=== PATIENT | female | born 1970 | race Caucasian/White ===

== ENCOUNTER 2018-04-05 00:04 | Inpatient (IN) | END 2018-06-09 20:35 | disposition home health service (06) | DRG 853 ==

== ENCOUNTER 2018-09-10 15:44 | Inpatient (IN) | payer OTHER ==
[~2018-09-10] VITALS: Ht 152.4 cm; Wt 59.1 kg
[~2018-09-10 15:44] MED LIST: ATOR20TA38 PO; FER325 PO; GLIP5TAB13 PO; METF500T24 PO; METO-448 PO
[2018-09-10] MEDS ORDERED: ACETAMINOPHEN 325 MG TAB PO STA (16:24)
[2018-09-10] MEDS ORDERED: VANCOMYCIN 1 GM (PMX) 250 ML IVPB STA (16:24)
[2018-09-10] MEDS ORDERED: SODIUM CHLORIDE 0.9% 1L BAG IV* STA (16:24)
[2018-09-10] MEDS ORDERED: PIPER-TAZO 3.375 GM IV (PMX) 100 ML IVPB STA (16:24)
--- NOTE | 2018-09-10 16:24 | ERD ---
ER Documentation Chief Complaint Chief Complaint seny by wound dept for admission for diabetic l. foot ulcer HPI 48-year-old female history of diabetes mellitus, Charcot foot, diabetic neuropathy and left foot ulceration and infection referred to the ED from the amputation prevention clinic for evaluation and admission. ROS All systems reviewed and are negative except as per history of present illness. Medications Home Meds Reported Medications Cholecalciferol (Vitamin D3) 5,000 Unit Tablet, 5000 UNIT PO DAILY, TAB 09/10/18 Ascorbic Acid* (Vitamin C*) 500 Mg Capsule.sa, 500 MG PO DAILY, CAP 09/10/18 [place]-3 Fatty Acids/Fish Oil (Fish Oil 1,000 mg Capsule) 1 Each Capsule, 1 EACH PO DAILY, CAP 09/10/18 Atorvastatin Calcium* (Atorvastatin Calcium*) 20 Mg Tablet, 20 MG PO QHS, #30 TAB 08/25/18 Metoprolol Tartrate* (Lopressor*) 25 Mg Tab, 25 MG PO BID, #60 TAB 08/25/18 Metformin Hcl* (Metformin Hcl*) 500 Mg Tablet, 500 MG PO WITH BREAKFAST DINNE, #60 TAB 08/25/18 Glipizide* (Glipizide*) 5 Mg Tablet, 5 MG PO AC BREAKFAST, TAB 08/25/18 Ferrous Sulfate* (Ferrous Sulfate*) 325 Mg Tabec, 325 MG PO DAILY, TAB 08/25/18 Allergies Allergies: Coded Allergies: No Known Allergy (Unverified , 09/10/18) PMhx/Soc Reviewed in chart. As per HPI. History of Surgery: Yes (LEFT FOOT ) Anesthesia Reaction: No Hx Neurological Disorder: No Hx Respiratory Disorders: No Hx Cardiac Disorders: No Hx Psychiatric Problems: No Hx Miscellaneous Medical Probl: Yes (DM II ) Hx Alcohol Use: No Hx Substance Use: No Hx Tobacco Use: No FmHx No family history relevant to presenting complaint Physical Exam Vitals Temperature: 100.7. Pulse: 131. Respirations: 20. Blood pressure: 198/135. O2 saturation 100%. Physical Exam Const: Moderate distress. Head: Atraumatic Eyes: Normal Conjunctiva ENT: Normal External Ears, Nose and Mouth. Neck: Full range of motion. No meningismus. Resp: Clear to auscultation bilaterally Cardio: Regular rate and rhythm, no murmurs Abd: Soft, non tender, non distended. Normal bowel sounds Skin: No petechiae or rashes Back: No midline or flank tenderness Ext: Left foot: Charcot deformity. Tender. Extensive ulcerations and tissue loss with subcutaneous crepitus. Neur: Awake and alert Psych: Normal Mood and Affect Result Diagram: 09/15/18 0549 09/15/18 0549 Results 24 hrs Laboratory Tests Test 09/10/18 15:45 09/10/18 16:10 09/10/18 16:20 09/10/18 18:07 Urine Color YELLOW Urine Clarity CLEAR Urine pH 6.0 Urine Specific 1.012 [place] Urine Ketones NEGATIVE mg/dL Urine Nitrite NEGATIVE mg/dL Urine Bilirubin NEGATIVE mg/dL Urine NEGATIVE mg/dL Urobilinogen Urine Leukocyte NEGATIVE Vero/ul Esterase Urine Microscopic 15 /HPF RBC Urine Microscopic 12 /HPF WBC Urine Squamous FEW /HPF Epithelial Cells Urine Hemoglobin 2+ mg/dL Urine Glucose NEGATIVE mg/dL Urine Total 2+ mg/dl Protein POC Venous 2.1 mmol/L 0.9 mmol/L Lactate White Blood Count 11.9 10^3/ul Red Blood Count 2.84 10^6/ul Hemoglobin 8.4 g/dl Hematocrit 24.8 % Mean Corpuscular 87.3 fl Volume Mean Corpuscular 29.6 pg Hemoglobin Mean Corpuscular 33.9 g/dl Hemoglobin Concen t Red Cell 13.0 % Distribution Width Platelet Count 493 10^3/UL Mean Platelet 9.3 fl Volume Immature 0.600 % Granulocytes % Neutrophils % 77.8 % Lymphocytes % 14.1 % Monocytes % 7.0 % Eosinophils % 0.2 % Basophils % 0.3 % Nucleated Red 0.0 /100WBC Blood Cells % Immature 0.070 10^3/ul Granulocytes # Neutrophils # 9.2 10^3/ul Lymphocytes # 1.7 10^3/ul Monocytes # 0.8 10^3/ul Eosinophils # 0.0 10^3/ul Basophils # 0.0 10^3/ul Nucleated Red 0.0 10^3/ul Blood Cells # Prothrombin Time 14.0 Sec Prothrombin Time 1.1 Ratio INR International 1.07 Normalized Ratio Activated 50.7 Sec Partial Thrombopl ast Time Sodium Level 131 mmol/L Potassium Level 5.1 mmol/L Chloride Level 95 mmol/L Carbon Dioxide 22 mmol/L Level Anion Gap 14 Blood Urea 23 mg/dl Nitrogen Creatinine 0.92 mg/dl Est Glomerular > 60 mL/min Filtrat Rate mL/min Glucose Level 165 mg/dl Calcium Level 9.6 mg/dl Total Bilirubin 0.1 mg/dl Direct Bilirubin 0.00 mg/dl Indirect 0.1 mg/dl Bilirubin Aspartate Amino 23 IU/L Transf (AST/SGOT) Alanine 20 IU/L Aminotransferase (ALT/SGPT) Alkaline 603 IU/L Phosphatase Troponin I 0.045 ng/ml Total Protein 7.8 g/dl Albumin 3.4 g/dl Globulin 4.40 g/dl Albumin/Globulin 0.77 Ratio Current Medications Medications Dose Sig/Panfilo Start Time Status Last (Trade) Ordered Route PRN Stop Time Admin Dose Reason Admin Sodium 1,770 ml BOLUS OVER 2 09/10/18 DC 09/10/18 Chloride HOURS STAT 16:24 16:43 (NS) IV* 09/10/18 16:27 650 mg ONCE STAT 09/10/18 DC 09/10/18 Acetaminophen PO 16:24 16:43 (Tylenol 09/10/18 16:27 Tab) Vancomycin 250 ml @ ONCE STAT 09/10/18 DC 09/10/18 HCl 125 mls/hr IVPB 16:24 17:15 09/10/18 18:23 Piperacillin 100 ml @ ONCE STAT 09/10/18 DC 09/10/18 Sod/ 200 mls/hr IVPB 16:24 16:43 Tazobactam 09/10/18 16:53 Sod Procedures/MDM DOCUMENTS REVIEWED: ED nurse, prior ED, prior records LAB INTERPRETATION: CBC, leukocytosis of 11.9. Anemia with H/H8 0.4/24.8 mildly decreased from 9.7/27.9 on 08/25/2017. Chemistry: Mild hyponatremia. Elevated BUN with normal creatinine and borderline hyperglycemia. Liver function tests: Elevated alk phosphatase but no transaminitis or hyperbilirubinemia.. EKG: Time: 16:22. Sinus tachycardia. Ventricular rate 132. Normal [place] and QRS. No acute ST segment elevation or depression. No ectopy. My Interpretation IMAGING: PROCEDURE: XR foot CLINICAL INDICATION: Pain, swelling, possible osteomyelitis in the lateral foot TECHNIQUE: AP, oblique and lateral views of the left foot COMPARISON: MR 04/05/2018; FOOT 04/04/2018 FINDINGS: Marked osteopenia. Large soft tissue defect in the medial plantar midfoot extending distally to the level of the second MTP joint. Well defined osseous defect in the medial base of the first metatarsal as well as medial cuneiform. There is cortical indistinctness of the medial margin of the medial cuneiform. Indistinctness of the base of the second metatarsal at the second tarsometatarsal joint. A dditionally there is widening of the second MTP cartilage space with irregularity of the lateral base of the proximal phalanx, as well as widening of the second PIP joint with irregularity of the head of the proximal phalanx. There is narrowing of the base of the fourth metatarsal. Marked soft tissue swelling in the second digit. Vascular calcifications. Calcaneal spur at the origin of the plantar fascia. Soft tissue swelling in the forefoot. IMPRESSION: 1. Large plantar medial midfoot soft tissue defect with gas extending to the level of the second MTP joint. 2. Well-defined defect in the medial base of the first metatarsal and medial cuneiform likely postsurgical. Medial base of the first metatarsal margin appears smooth. Cortical indistinctness of the medial margin of the medial c uneiform. Correlate for date of surgery. Findings are concerning for osteomyelitis. 3. Interval widening of the second MTP joint space with irregularity of the lateral base of the second proximal phalanx, as well as widening of the second PIP joint space with irregularity of the head of the second proximal phalanx likely representing joint effusions, suspicious for septic arthritis and osteom yelitis. Marked soft tissue swelling in the second digit and forefoot. 4. Severe diffuse osteopenia. 5. Recommend MRI for further evaluation. RPTAT: BBDD Physician Summer Date Time Electronically viewed and signed by Physician Summer on 09/10/2018 17:50 [employer]-year-old female history of diabetes mellitus, Charcot foot, diabetic neuropathy and left foot ulceration and infection referred to the ED from the amputation prevention clinic for evaluation and possible admission. Patient has been undergoing extensive treatment at the amputation prevention clinic but now with fever and worsening symptoms. Multiple criteria for systemic inflammatory response syndrome and severe sepsis secondary to diabetic foot infection and osteomyelitis. No hypotension lactate greater than 4.0 mmol/L or criteria for, septic shock. Intravenous fluids and broad-spectrum antibiotics after cultures as per protocol. Patient with chronic arterial insufficiency but no signs of acute limb ischemia or arterial occlusion. Patient's infectious symptoms have not stabilized and the patient is at risk of rapid decompensation. The patient will be admitted to med/surg for careful hydration, antibiotic therapy, and infectious source control. Severe Sepsis criteria: Infectious source: Left foot diabetic foot infection/Osteomyelitis End organ damage indicated by: Lactate > 2.0 mmol/L Sepsis Management: Time of recognition of severe sepsis: 16:10 Within 1 hour of recognition: Blood cultures x 2 before broad-spectrum antibiotics: Yes 30 ml/kg NS bolus Completed Initial lactate 2.1 Repeat lactate 0.9 Septic Shock Assessment: Any lactic acid > 4.0 No Persistent hypotension (SBP < 90 or 40 mmHg drop, MAP < 65) despite 30 mL/kg IV fluid bolus: No Central line not indicated Critical Care Time: 35 minutes Treatments/Evaluations: Close monitoring and treatment of unstable vital signs, cardiorespiratory, and neurologic status, while maintaining tight balance of fluid, respiratory, and cardiac interventions. This includes the administration of emergency fluid management while maintaining close respiratory support as well as the provision of immediate and broad-spectrum antibiotic therapy, while performing a simultaneous assessment for possible sources in order to direct targeted therapy. This time includes discussing the case with the patient and the patient's family. This time also includes the consideration for invasive and chemical support to prevent cardiopulmonary collapse. This time does not include all procedures stated elsewhere in this record. This time also includes reviewing old records, labs and radiological studies. This time includes e xamining and re-examining the patient. Additionally, this time also includes arranging care with admitting and consulting physicians. PATIENT CARE TRANSITIONED: Time: 18:22, Dr. Brenden Mendoza. Counseled patient and family regarding diagnosis, diagnostic results and plan for admission. Departure Diagnosis: Primary Impression: Diabetic infection of left foot Additional Impressions: Severe sepsis Osteomyelitis Osteomyelitis type: unspecified type Osteomyelitis location: foot Laterality: left Qualified Codes: M86.9 - Osteomyelitis, unspecified SIRS (systemic inflammatory response syndrome) Anemia Anemia type: unspecified type Qualified Codes: D64.9 - Anemia, unspecified Condition: Serious BELKIS BOWERS MD Sep 10, 2018 16:24
[2018-09-10] MEDS ORDERED: VANCOMYCIN IV PER PHARMACY XX SCH (18:30)
[2018-09-10] MEDS ORDERED: NACL 0.9% 3 ML SYG IV SCH (18:30)
[2018-09-10] MEDS ORDERED: ONDANSETRON 4 MG INJ IV PRN (18:30)
[2018-09-10] MEDS ORDERED: ACETAMINOPHEN 325 MG TAB PO PRN (18:30)
[2018-09-10] MEDS ORDERED: morphine 2 MG INJ IV PRN (18:30)
[2018-09-10] MEDS ORDERED: HYDROCODONE/APAP (5/325) TAB PO PRN (18:30)
--- NOTE | 2018-09-10 18:48 | HP ---
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 Patient states that her left foot wound has been getting worse over the past weeks although she has been following up on a normal basis with podiatry. Patient currently denies chest pain, shortness of breath, abdominal pain, nausea, vomiting, headache. Patient does state that there is left foot pain. Objective Physical exam General: Patient is laying in bed and answers questions appropriately Mentation: Patient is alert and oriented 4, Head: Normocephalic atraumatic Eyes: EOMI, pupils reactive to light Neck: Supple, nontender, midline Respiratory: Clear to auscultation bilaterally Cardiovascular: regular rate, no obvious murmurs Gastrointestinal: non-tender to palpation, bowel sounds heard. Neurological: Moves all extremities spontaneously Skin: Left foot wound ulcer, bandaged, Assessment and plan Left foot wound, possible osteomyelitis, chronic Charcot deformity -Acute on chronic left foot wound -Podiatry notified -IV antibiotic -MRI pending -Arterial study pending -Wound culture pending -ID consulted Sepsis -Secondary to above left foot wound -Blood cultures -IV fluids -Wound culture -Monitor -IV fluids Anemia -Chronic -On iron supplements Diabetes mellitus -Insulin for now Dyslipidemia -Continue atorvastatin Electrolyte derangement -Mild, replete as needed Hypertension -Continue metoprolol Disposition -Podiatry and infectious disease consultation appreciated, pending multiple imaging studies. Result Diagram: 09/10/18 1620 09/10/18 1620 Results 24hrs Laboratory Tests Test 09/10/18 16:10 09/10/18 16:20 POC Venous Lactate 2.1 *H White Blood Count 11.9 #H Red Blood Count 2.84 L Hemoglobin 8.4 L Hematocrit 24.8 L Mean Corpuscular Volume 87.3 Mean Corpuscular Hemoglobin 29.6 Mean Corpuscular Hemoglobin Concent 33.9 Red Cell Distribution Width 13.0 Platelet Count 493 #H Mean Platelet Volume 9.3 Immature Granulocytes % 0.600 H Neutrophils % 77.8 H Lymphocytes % 14.1 L Monocytes % 7.0 Eosinophils % 0.2 Basophils % 0.3 Nucleated Red Blood Cells % 0.0 Immature Granulocytes # 0.070 H Neutrophils # 9.2 H Lymphocytes # 1.7 Monocytes # 0.8 Eosinophils # 0.0 Basophils # 0.0 Nucleated Red Blood Cells # 0.0 Prothrombin Time 14.0 Prothrombin Time Ratio 1.1 INR International Normalized Ratio 1.07 Activated Partial Thromboplast Time 50.7 H Sodium Level 131 L Potassium Level 5.1 Chloride Level 95 L Carbon Dioxide Level 22 Anion Gap 14 H Blood Urea Nitrogen 23 H Creatinine 0.92 Est Glomerular Filtrat Rate mL/min > 60 Glucose Level 165 Calcium Level 9.6 Total Bilirubin 0.1 L Direct Bilirubin 0.00 Indirect Bilirubin 0.1 Aspartate Amino Transf (AST/SGOT) 23 Alanine Aminotransferase (ALT/SGPT) 20 Alkaline Phosphatase 603 H Troponin I 0.045 Total Protein 7.8 Albumin 3.4 Globulin 4.40 H Albumin/Globulin Ratio 0.77 HPI/ROS Admit Date/Time Admit Date/Time PMH/Family/Social Past Medical History Coded Allergies: No Known Allergy (Unverified , 08/25/18) Past Surgical History Past Surgical Hx: no surgical history Family History Significant Family History: no pertinent family hx Social History Smoking Status: Never smoker Exam/Review of Systems Vital Signs Vitals Vital Signs Date Temp Pulse Resp B/P (MAP) Pulse Ox O2 O2 Flow FiO2 Time Delivery Rate 09/10/18 101.0 16:43 09/10/18 Nasal 16:30 Cannula 09/10/18 131 20 198/135 100 15:51 (156) ROLANDA CEDILLO Sep 10, 2018 18:48
[2018-09-10] MEDS: INSULIN GLARGINE [LANTus] (100 UNITS/ML) SYG SC SCH (20:35)
[2018-09-10] MEDS ORDERED: OMEG-135 PO (21:00)
[2018-09-10] MEDS ORDERED: CHOL500010 PO (21:00)
[2018-09-10] MEDS ORDERED: ASCO500C7 PO (21:00)
[2018-09-10] MEDS: ATORVASTATIN 20 MG TAB PO SCH (22:16)
[2018-09-10] MEDS: METOPROLOL 25 MG TAB PO SCH (22:16)
[2018-09-10] MEDS: SOD CHLORIDE 0.9% 1,000 ML IV SCH (22:17)
[2018-09-10] MEDS: INSULIN ASPART [NOVOLOG] 3 ML PEN SC SCH (22:48)
[2018-09-10 23:14] VITALS: BP 143/78; PULSE 114; RESP 20
[2018-09-11] MEDS: PIPER-TAZO 3.375 GM IV (PMX) 100 ML IVPB SCH ×4 (00:10→17:16)
--- NOTE | 2018-09-11 00:49 | CONS ---
DATE OF ADMISSION: 09/10/2018 DATE OF CONSULTATION: 09/10/2018 TYPE OF CONSULTATION: Infectious Disease. REASON FOR CONSULTATION: Antibiotic management. HISTORY OF PRESENT ILLNESS: The patient is a 48-year-old female who was sent in by the [facility] fo r diabetic left foot ulcer. PAST MEDICAL HISTORY: Past problems include: 1. Adult-onset diabetes mellitus. 2. Charcot foot. 3. Diabetic neuropathy. 4. Left foot ulceration and infection, referred to the ED from the [facility] for evaluation and admission. She had surgery in the past with her left foot. She has diabetes mellitus . On admission, her temperature was 100.7. PHYSICAL EXAMINATION: GENERAL: She was in no acute distress. VITAL SIGNS: Stable. T-max 100.7. SKIN: Without generalized rash. HEENT: Within normal limits. NECK: Supple. LYMPH NODES: None palpable. CHEST: Decreased breath sounds at the bases. HEART: Without murmur or gallop. ABDOMEN: Soft, nontender, without organomegaly, splenomegaly or masses. EXTREMITIES: Without cyanosis, clubbing, or edema. RECTAL AND GENITAL: Deferred. NEUROLOGIC: No focal neurological abnormality. The patient has a left foot wound which is ulcerated . She has a chronic Charcot deformity and possible osteomyelitis. LABORATORY DATA: On admission, white count was 11.9, H and H of 8.4/24.8, platelet count 493,000. B UN and creatinine 23/0.92, blood sugar 165. ASSESSMENT AND PLAN: The patient was started on vancomycin and Zosyn. A foot x-ray showed large russ ntar medial mid foot soft tissue defect with gas extending to the level of the second MTP joint, well defined defect in the medial base of the first metatarsal and medial cuneiform, likely post-surgical , medial base of the first metatarsal margin appears smooth, cortical indistinctive of the medial mar gin of the medial cuneiform. Findings are concerning for osteomyelitis interval widening of the seco nd MTP joint space with irregularity of the lateral base of the 2nd proximal phalanx as well as widen ing of the second PIP joint space with irregularity of the head of the 2nd proximal phalanx, likely r epresenting joint effusion suspicious for septic arthritis and osteomyelitis, marked soft tissue swel ling in the second digit and forefoot, severe diffuse osteopenia. Recommend MRI for further evaluati on. The patient with probable osteomyelitis being seen by Dr. Perea and Dr. Stevens. Continue v ancomycin and Zosyn. I will dictate my findings to the hospitalist and to the aforementioned physici ans. Dictated By: GABBY GONZALEZ MD, JD/NTS Conf#: [id number] DID#: [id number] CC: ROLANDA CEDILLO MD;*EndCC*
[2018-09-11 01:20] VITALS: Ht 152.4 cm; Wt 59.1 kg
[2018-09-11] MEDS: ACCU-CHEK XX SCH (01:57)
[2018-09-11 02:04] VITALS: BP 138/76; PULSE 109; RESP 20
[2018-09-11] MEDS: VANCOMYCIN 500 MG (PMX) 100 ML IVPB SCH ×2 (05:38→18:14)
[2018-09-11 07:58] VITALS: BP 120/61; PULSE 109; RESP 19
[2018-09-11] MEDS: ONDANSETRON 4 MG INJ IV PRN (08:08)
[2018-09-11] MEDS: FERROUS SULFATE (EC) 325 MG TAB PO SCH (08:11)
[2018-09-11] MEDS: METOPROLOL 25 MG TAB PO SCH ×2 (08:12→21:00)
[2018-09-11] MEDS: INSULIN ASPART [NOVOLOG] 3 ML PEN SC SCH ×7 (08:15→21:08)
--- NOTE | 2018-09-11 11:59 | PN ---
Date/Time of Note Date/Time of Note DATE: 09/11/18 TIME: 11:59 Objective Vitals Vital Signs Date Temp Pulse Resp B/P (MAP) Pulse Ox O2 O2 Flow FiO2 Time Delivery Rate 09/11/18 98.7 109 19 120/61 100 07:58 (80) 09/11/18 Room Air 02:04 Intake and Output 09/10/18 09/10/18 09/11/18 1515:00 23:00 07:00 IntakeIntake Total 2120 ml 500 ml BalanceBalance 2120 ml 500 ml Results Result Diagram: 09/11/18 0454 09/11/18 0454 Medications Medications Current Medications Piperacillin Sod/ Tazobactam Sod 100 ml @ 200 mls/hr Q6 IVPB Last administered on 09/11/18at 04:58; Admin Dose 200 MLS/HR; Start 09/11/18 at 00:00 Vancomycin HCl (Vanco Iv Per Pharmacy) VANCOMYCIN PER PHARMACY PER PROTOCOL XX ; Start 09/10/18 at 18:30 Sodium Chloride 1,000 ml @ 50 mls/hr Q20H IV Last administered on 09/10/18at 22:17; Admin Dose 50 MLS/HR; Start 09/10/18 at 18:27 IV Flush (NS 3 ml) 3 ml PER PROTOCOL IV ; Start 09/10/18 at 18:30 Ondansetron HCl (Zofran Inj) 4 mg Q6H PRN IV NAUSEA/VOMITING Last administered on 09/11/18at 08:08; Admin Dose 4 MG; Start 09/10/18 at 18:30 Acetaminophen (Tylenol Tab) 650 mg Q6H PRN PO .PAIN 1-3 OR TEMP; Start 09/10/18 at 18:30 Acetaminophen/ Hydrocodone Bitart ([place] (5/325)) 1 tab Q6H PRN PO .PAIN 4-6; Start 09/10/18 at 18:30 Morphine Sulfate (morphine) 2 mg Q4H PRN IV .PAIN 7-10; Start 09/10/18 at 18:30 Diagnostic Test (Pha) (Accu-Chek) 1 ea 02 XX ; Start 09/11/18 at 02:00 Insulin Glargine (Lantus) 9 units DAILY@2000 SC Last administered on 09/10/18at 20:35; Admin Dose 9 UNITS; Start 09/10/18 at 20:00 Insulin Aspart (Novolog Insulin Pen) 3 unit WITH MEALS SC Last administered on 09/11/18 08:15; Admin Dose 3 UNIT; Start 09/11/18 at 08:00 Insulin Aspart (Novolog Insulin Pen) NOVOLOG *MILD* ALGORITHM WITH MEALS BEDTIME SC Last administered on 09/11/18 08:15; Admin Dose 1 UNIT; Start 09/10/18 at 21:00 Hydralazine HCl (Apresoline) 10 mg Q4H PRN IV sbp >160; Start 09/10/18 at 18:30 Atorvastatin Calcium (Lipitor) 20 mg QHS PO Last administered on 09/10/18 22: 16; Admin Dose 20 MG; Start 09/10/18 at 21:00 Ferrous Sulfate (Ferrous Sulfate (Ec)) 325 mg DAILY PO Last administered on 09/11/18 08:11; Admin Dose 325 MG; Start 09/11/18 at 09:00 Metoprolol Tartrate (Lopressor) 25 mg BID PO Last administered on 09/11/18 08:12; Admin Dose 25 MG; Start 09/10/18 at 21:00 Vancomycin HCl 100 ml @ 100 mls/hr Q12H IVPB Last administered on 09/11/18 05:38; Admin Dose 100 MLS/HR; Start 09/11/18 at 05:00 VTE Prophylaxis Risk score (from Ns)>0 risk: 2 [place]CD applied [place]from [facility] [place] Yes Lines/Catheters IV Catheter Type: Galaviz in Place: No Assessment/Plan Hospital Course Subjective No acute changes overnight Objective Physical exam General: Patient is laying in bed and answers questions appropriately Mentation: Patient is alert and oriented 4, Head: Normocephalic atraumatic Eyes: EOMI, pupils reactive to light Neck: Supple, nontender, midline Respiratory: Clear to auscultation bilaterally Cardiovascular: regular rate, no obvious murmurs Gastrointestinal: non-tender to palpation, bowel sounds heard. Neurological: Moves all extremities spontaneously Skin: Left foot wound ulcer, bandaged, Assessment and plan Left foot wound, possible osteomyelitis, chronic Charcot deformity -Acute on chronic left foot wound -Podiatry notified -IV antibiotic -MRI pending -Arterial study noted -Wound culture pending -ID consulted Sepsis -Secondary to above left foot wound -Blood cultures -IV fluids -Wound culture -Monitor -IV fluids Anemia -Chronic -On iron supplements Diabetes mellitus -Insulin for now Dyslipidemia -Continue atorvastatin Electrolyte derangement -Mild, replete as needed Hypertension -Continue metoprolol Disposition -Podiatry and infectious disease consultation appreciated, pending multiple imaging studies. ROLANDA CEDILLO Sep 11, 2018 11:59
[2018-09-11] MEDS: SOD CHLORIDE 0.9% 1,000 ML IV SCH (14:27)
[2018-09-11] MEDS: ACETAMINOPHEN 325 MG TAB PO PRN ×2 (15:14→22:46)
--- NOTE | 2018-09-11 15:36 | CONS ---
Assessment/Plan Assessment/Plan Assessment/Plan (Daily) Left foot diabetic ulcer Left foot cellulitis Left foot abscess Left foot osteomyelitis Left lower extremity failed graft site DM2 with peripheral neuropathy PAD Plan Consent was obtained and performed excisional debridement of skin/subQ/muscle/tendon of the left foot ulceration site using a scissor/pickup. Copious saline irrigation was used at the left lower extremity. Necrotic and fibrotic tissue was removed. 3-4mL of purulence was removed from the foot site. Left foot and ankle wound cultures were obtained. Reviewed X-rays and gas is likely represented by the wound deficit site as the compartments of the foot are open. IV abx per ID recommendations. Patient will need daily dressing changes. Patient will be planned for OR debridement. Non-invasive arterial studies ordered and recommend vascular evaluation. MRI results pending. Discussed with patient that amputation is a high likelihood. Patient and family members voiced understanding regarding high risk for amputation. Consultation Date/Type/Reason Admit Date/Time Date/Time of Note DATE: 09/11/18 TIME: 15:36 Hx of Present Illness 48 y/o F patient with past medical history of diabetes, dyslipidemia, chronic di abetic ulcerations, and osteomyelitis, presents to the floor with worsening infection of the left foot. Patient was being seen in clinic and was undergoing hyperbaric oxygen therapy and local wound care. Patient had previously been on wound VAC therapy and was receiving home health care. Local wound care was not improving her condition and there was concerns for deeper infection. Patient had reported fevers, nausea and vomiting. She denied chest pains or shortness of breath. ROS Negative except for HPI Past Medical History diabetes, dyslipidemia, osteomyelitis, left lower extremity ulcerations Home Meds Reported Medications Cholecalciferol (Vitamin D3) 5,000 Unit Tablet, 5000 UNIT PO DAILY, TAB 09/10/18 Ascorbic Acid* (Vitamin C*) 500 Mg Capsule.sa, 500 MG PO DAILY, CAP 09/10/18 [place]-3 Fatty Acids/Fish Oil (Fish Oil 1,000 mg Capsule) 1 Each Capsule, 1 EACH PO DAILY, CAP 09/10/18 Atorvastatin Calcium* (Atorvastatin Calcium*) 20 Mg Tablet, 20 MG PO QHS, #30 TAB 08/25/18 Metoprolol Tartrate* (Lopressor*) 25 Mg Tab, 25 MG PO BID, #60 TAB 08/25/18 Metformin Hcl* (Metformin Hcl*) 500 Mg Tablet, 500 MG PO WITH BREAKFAST DINNE, #60 TAB 08/25/18 Glipizide* (Glipizide*) 5 Mg Tablet, 5 MG PO AC BREAKFAST, TAB 08/25/18 Ferrous Sulfate* (Ferrous Sulfate*) 325 Mg Tabec, 325 MG PO DAILY, TAB 08/25/18 Medications Current Medications Piperacillin Sod/ Tazobactam Sod 100 ml @ 200 mls/hr Q6 IVPB Last administered on 09/11/18at 13:14; Admin Dose 200 MLS/HR; Start 09/11/18 at 00:00 Vancomycin HCl (Vanco Iv Per Pharmacy) VANCOMYCIN PER PHARMACY PER PROTOCOL XX ; Start 09/10/18 at 18:30 Sodium Chloride 1,000 ml @ 50 mls/hr Q20H IV Last administered on 09/10/18at 22:17; Admin Dose 50 MLS/HR; Start 09/10/18 at 18:27 IV Flush (NS 3 ml) 3 ml PER PROTOCOL IV ; Start 09/10/18 at 18:30 Ondansetron HCl (Zofran Inj) 4 mg Q6H PRN IV NAUSEA/VOMITING Last administered on 09/11/18 08:08; Admin Dose 4 MG; Start 09/10/18 at 18:30 Acetaminophen (Tylenol Tab) 650 mg Q6H PRN PO .PAIN 1-3 OR TEMP Last administered on 09/11/18at 15:14; Admin Dose 650 MG; Start 09/10/18 at 18:30 Acetaminophen/ Hydrocodone Bitart ([place] (5/325)) 1 tab Q6H PRN PO .PAIN 4-6; Start 09/10/18 at 18:30 Morphine Sulfate (morphine) 2 mg Q4H PRN IV .PAIN 7-10; Start 09/10/18 at 18:30 Diagnostic Test (Pha) (Accu-Chek) 1 ea 02 XX ; Start 09/11/18 at 02:00 Insulin Glargine (Lantus) 9 units DAILY@2000 SC Last administered on 09/10/18at 20:35; Admin Dose 9 UNITS; Start 09/10/18 at 20:00 Insulin Aspart (Novolog Insulin Pen) 3 unit WITH MEALS SC Last administered on 09/11/18at 13:27; Admin Dose 3 UNIT; Start 09/11/18 at 08:00 Insulin Aspart (Novolog Insulin Pen) NOVOLOG *MILD* ALGORITHM WITH MEALS BEDTIME SC Last administered on 09/11/18at 13:26; Admin Dose 1 UNIT; Start 09/10/18 at 21:00 Hydralazine HCl (Apresoline) 10 mg Q4H PRN IV sbp >160; Start 09/10/18 at 18:30 Atorvastatin Calcium (Lipitor) 20 mg QHS PO Last administered on 09/10/18at 22:16; Admin Dose 20 MG; Start 09/10/18 at 21:00 Ferrous Sulfate (Ferrous Sulfate (Ec)) 325 mg DAILY PO Last administered on 09/11/18at 08:11; Admin Dose 325 MG; Start 09/11/18 at 09:00 Metoprolol Tartrate (Lopressor) 25 mg BID PO Last administered on 09/11/18at 08:12; Admin Dose 25 MG; Start 09/10/18 at 21:00 Vancomycin HCl 100 ml @ 100 mls/hr Q12H IVPB Last administered on 09/11/18at 05:38; Admin Dose 100 MLS/HR; Start 09/11/18 at 05:00 Miscellaneous Information (*Rx Drug Level Order Reminder*) VANCOMYCIN TROUGH 09/12 AT 0400 ONCE ONCE XX ; Start 09/12/18 at 04:00; Stop 09/12/18 at 04:01 Allergies: Coded Allergies: No Known Allergy (Unverified , 09/10/18) Past Surgical History multiple surgical ulcer debridements, soco-soleus muscle flap left lower extremity. Family History Significant Family History: no pertinent family hx Social History Alcohol Use: none Smoking Status: Never smoker Exam/Review of Systems Exam Vitals Vital Signs Date Temp Pulse Resp B/P (MAP) Pulse Ox O2 O2 Flow FiO2 Time Delivery Rate 09/11/18 98.7 109 19 120/61 100 07:58 (80) 09/11/18 Room Air 02:04 Intake and Output 09/10/18 09/10/18 09/11/18 1515:00 23:00 07:00 IntakeIntake Total 2120 ml 500 ml BalanceBalance 2120 ml 500 ml Exam Left foot medial and plantar ulceration 10 x 8 x 2.0cm there is bone, tendon muscle exposed. Wound tunnels into the central compartment of the foot ~2-3cm. Wound base mixed granular and fibrotic with focal areas of necrosis noted. Left foot multiple dorsal ulceration sites at previous skin graft site 5 x 5cm granular wound base no tunneling appreciated. Left foot lateral ulceration site 2 x 2 x 0.8cm ulceration with mild granulation tissue formation and bone exposed Absent protective sensations Left 2nd digit with gangrene formation Left plantar hallux ulcer with fibronecrotic wound base 3 x 3 x 0.6cm purulence appreciated Unable to dorsiflex digits Weak ankle dorsiflexion Foot X-ray IMPRESSION: 1. Large plantar medial midfoot soft tissue defect with gas extending to the level of the second MTP joint. 2. Well-defined defect in the medial base of the first metatarsal and medial cuneiform likely postsurgical. Medial base of the first metatarsal margin appears smooth. Cortical indistinctness of the medial margin of the medial cuneiform. Correlate for date of surgery. Findings are concerning for osteomyelitis. 3. Interval widening of the second MTP joint space with irregularity of the lateral base of the second proximal phalanx, as well as widening of the second PIP joint space with irregularity of the head of the second proximal phalanx likely representing joint effusions, suspicious for septic arthritis and osteomyelitis. Marked soft tissue swelling in the second digit and forefoot. 4. Severe diffuse osteopenia. 5. Recommend MRI for further evaluation. Non invasive arterial studies IMPRESSION: Patent left lower extremity arteries. Monophasic waveforms from the left popliteal artery distally. This is suggestive of inflow disease due to upstream stenosis. Results Result Diagram: 09/11/18 0454 09/11/18 0454 Results 24hrs Laboratory Tests Test 09/10/18 16:10 09/10/18 16:20 09/10/18 18:07 09/10/18 19:47 POC Venous Lactate 2.1 *H 0.9 White Blood Count 11.9 #H Red Blood Count 2.84 L Hemoglobin 8.4 L Hematocrit 24.8 L Mean Corpuscular 87.3 Volume Mean Corpuscular 29.6 Hemoglobin Mean Corpuscular 33.9 Hemoglobin Concent Red Cell 13.0 Distribution Width Platelet Count 493 #H Mean Platelet Volume 9.3 Immature 0.600 H Granulocytes % Neutrophils % 77.8 H Lymphocytes % 14.1 L Monocytes % 7.0 Eosinophils % 0.2 Basophils % 0.3 Nucleated Red Blood 0.0 Cells % Immature 0.070 H Granulocytes # Neutrophils # 9.2 H Lymphocytes # 1.7 Monocytes # 0.8 Eosinophils # 0.0 Basophils # 0.0 Nucleated Red Blood 0.0 Cells # Prothrombin Time 14.0 Prothrombin Time 1.1 Ratio INR International 1.07 Normalized Ratio Activated 50.7 H Partial Thromboplast Time Sodium Level 131 L Potassium Level 5.1 Chloride Level 95 L Carbon Dioxide Level 22 Anion Gap 14 H Blood Urea Nitrogen 23 H Creatinine 0.92 Est Glomerular > 60 Filtrat Rate mL/min Glucose Level 165 Calcium Level 9.6 Total Bilirubin 0.1 L Direct Bilirubin 0.00 Indirect Bilirubin 0.1 Aspartate Amino 23 Transf (AST/SGOT) Alanine 20 Aminotransferase (AL T/SGPT) Alkaline Phosphatase 603 H Troponin I 0.045 Total Protein 7.8 Albumin 3.4 Globulin 4.40 H Albumin/Globulin 0.77 Ratio Lactic Acid Level 0.7 Test 09/10/18 20:30 09/10/18 20:52 09/10/18 22:37 09/11/18 04:54 Bedside Glucose 150 139 166 White Blood Count 8.9 # Red Blood Count 2.18 #L Hemoglobin 6.4 #*L Hematocrit 18.8 #L Mean Corpuscular 86.2 Volume Mean Corpuscular 29.4 Hemoglobin Mean Corpuscular 34.0 Hemoglobin Concent Red Cell 13.2 Distribution Width Platelet Count 387 # Mean Platelet Volume 9.4 Immature 0.300 Granulocytes % Neutrophils % Segmented 63 Neutrophils % (Manual) Band Neutrophils % 16 H (Manual) Lymphocytes % Lymphocytes % 19 (Manual) Reactive Lymphocytes 1 H % (Manual) Monocytes % Monocytes % (Manual) 1 Eosinophils % Basophils % Nucleated Red Blood 0.0 Cells % Immature 0.030 Granulocytes # Neutrophils # Neutrophils # 5.7 (Manual) Band Neutrophils # 1.4 H Lymphocytes (Manual) 1.6 Lymphocytes # Reactive Lymphocytes 0.0 # Monocytes # Monocytes # (Manual) 0.0 L Eosinophils # Basophils # Nucleated Red Blood Cells # Platelet Estimate NORMAL Polychromasia 1+ Anisocytosis 2+ Microcytosis 2+ Sodium Level 133 L Potassium Level 4.5 Chloride Level 101 Carbon Dioxide Level 20 L Anion Gap 12 Blood Urea Nitrogen 18 Creatinine 0.80 Est Glomerular > 60 Filtrat Rate mL/min Glucose Level 164 Hemoglobin A1c 7.6 H Calcium Level 8.5 Magnesium Level 1.3 L Total Bilirubin 0.0 L Direct Bilirubin 0.00 Indirect Bilirubin 0.0 Aspartate Amino 23 Transf (AST/SGOT) Alanine 25 Aminotransferase (AL T/SGPT) Alkaline Phosphatase 499 H Total Protein 6.4 # Albumin 2.7 L Globulin 3.70 H Albumin/Globulin 0.72 Ratio Test 09/11/18 08:13 09/11/18 13:15 Bedside Glucose 165 170 Medications Medication Current Medications Piperacillin Sod/ Tazobactam Sod 100 ml @ 200 mls/hr Q6 IVPB Last administered on 09/11/18 13:14; Admin Dose 200 MLS/HR; Start 09/11/18 at 00:00 Vancomycin HCl (Vanco Iv Per Pharmacy) VANCOMYCIN PER PHARMACY PER PROTOCOL XX ; Start 09/10/18 at 18:30 Sodium Chloride 1,000 ml @ 50 mls/hr Q20H IV Last administered on 09/10/18 22:17; Admin Dose 50 MLS/HR; Start 09/10/18 at 18:27 IV Flush (NS 3 ml) 3 ml PER PROTOCOL IV ; Start 09/10/18 at 18:30 Ondansetron HCl (Zofran Inj) 4 mg Q6H PRN IV NAUSEA/VOMITING Last administered on 09/11/18 08:08; Admin Dose 4 MG; Start 09/10/18 at 18:30 Acetaminophen (Tylenol Tab) 650 mg Q6H PRN PO .PAIN 1-3 OR TEMP Last administered on 09/11/18 15:14; Admin Dose 650 MG; Start 09/10/18 at 18:30 Acetaminophen/ Hydrocodone Bitart ([place] (5/325)) 1 tab Q6H PRN PO .PAIN 4-6; Start 09/10/18 at 18:30 Morphine Sulfate (morphine) 2 mg Q4H PRN IV .PAIN 7-10; Start 09/10/18 at 18:30 Diagnostic Test (Pha) (Accu-Chek) 1 XX ; Start 09/11/18 at 02:00 Insulin Glargine (Lantus) 9 units DAILY@2000 SC Last administered on 09/10/18at 20:35; Admin Dose 9 UNITS; Start 09/10/18 at 20:00 Insulin Aspart (Novolog Insulin Pen) 3 unit WITH MEALS SC Last administered on 09/11/18at 13:27; Admin Dose 3 UNIT; Start 09/11/18 at 08:00 Insulin Aspart (Novolog Insulin Pen) NOVOLOG *MILD* ALGORITHM WITH MEALS BEDTIME SC Last administered on 09/11/18at 13:26; Admin Dose 1 UNIT; Start 09/10/18 at 21:00 Hydralazine HCl (Apresoline) 10 mg Q4H PRN IV sbp >160; Start 09/10/18 at 18:30 Atorvastatin Calcium (Lipitor) 20 mg QHS PO Last administered on 09/10/18at 22:16; Admin Dose 20 MG; Start 09/10/18 at 21:00 Ferrous Sulfate (Ferrous Sulfate (Ec)) 325 mg DAILY PO Last administered on 09/11/18at 08:11; Admin Dose 325 MG; Start 09/11/18 at 09:00 Metoprolol Tartrate (Lopressor) 25 mg BID PO Last administered on 09/11/18at 08:12; Admin Dose 25 MG; Start 09/10/18 at 21:00 Vancomycin HCl 100 ml @ 100 mls/hr Q12H IVPB Last administered on 09/11/18at 05:38; Admin Dose 100 MLS/HR; Start 09/11/18 at 05:00 Miscellaneous Information (*Rx Drug Level Order Reminder*) VANCOMYCIN TROUGH 09/12 AT 0400 ONCE ONCE XX ; Start 09/12/18 at 04:00; Stop 09/12/18 at 04:01 WALTER TIM DPM Sep 11, 2018 15:36
--- NOTE | 2018-09-11 16:03 | CONS ---
Assessment/Plan Assessment/Plan Hospital Course (Demo Recall) No acute changes overnight patient is alert, tearful, in no distress, had been spiking fevers with a T-max of 101 yesterday currently afebrile. WBC 8.9 H&H 6.4 and 19.8 platelets 387 bands 16 BUN 18 creatinine 0.80 Antimicrobials: Vanco Zosyn Chest x-ray revealed no acute disease. Arterial study of left lower extremity showed inflow disease due to upstream stenosis Microbiology: Left foot wound culture previously grew Lalitha glabrata and strep PHYSICAL EXAMINATION: GENERAL: This is a well-developed middle-aged woman who is in no distress. HEENT: Head is atraumatic, normocephalic. NECK: Supple. CHEST: Rise symmetrical. Breath sounds diminished to bases. HEART: S1, S2. ABDOMEN: Soft. Bowel tones present. EXTREMITIES: Left lower extremity dressing intact ASSESSMENT: 1. Sepsis secondary to #2 2. Left foot cellulitis, abscess, osteomyelitis, status post multiple incision and drainage/ skin graft 3. Diabetes 4. Diabetic neuropathy/PAD. 5. Anemia. PLAN: Clinically stable, continue antibiotics, blood transfusion per primary, follow wound cultures and podiatry recommendations, pending MRI Consultation Date/Type/Reason Admit Date/Time Sep 10, 2018 at 18:26 Initial Consult Date Type of Consult id Date/Time of Note DATE: 09/11/18 TIME: 16:01 Exam/Review of Systems Exam Vitals Vital Signs Date Temp Pulse Resp B/P (MAP) Pulse Ox O2 O2 Flow FiO2 Time Delivery Rate 09/11/18 98.7 109 19 120/61 100 07:58 (80) 09/11/18 Room Air 02:04 Intake and Output 09/10/18 09/10/18 09/11/18 1515:00 23:00 07:00 IntakeIntake Total 2120 ml 500 ml BalanceBalance 2120 ml 500 ml Results Result Diagram: 09/11/18 0454 09/11/18 0454 Results 24hrs Laboratory Tests Test 09/10/18 16:10 09/10/18 16:20 09/10/18 18:07 09/10/18 19:47 POC Venous Lactate 2.1 *H 0.9 White Blood Count 11.9 #H Red Blood Count 2.84 L Hemoglobin 8.4 L Hematocrit 24.8 L Mean Corpuscular 87.3 Volume Mean Corpuscular 29.6 Hemoglobin Mean Corpuscular 33.9 Hemoglobin Concent Red Cell 13.0 Distribution Width Platelet Count 493 #H Mean Platelet Volume 9.3 Immature 0.600 H Granulocytes % Neutrophils % 77.8 H Lymphocytes % 14.1 L Monocytes % 7.0 Eosinophils % 0.2 Basophils % 0.3 Nucleated Red Blood 0.0 Cells % Immature 0.070 H Granulocytes # Neutrophils # 9.2 H Lymphocytes # 1.7 Monocytes # 0.8 Eosinophils # 0.0 Basophils # 0.0 Nucleated Red Blood 0.0 Cells # Prothrombin Time 14.0 Prothrombin Time 1.1 Ratio INR International 1.07 Normalized Ratio Activated 50.7 H Partial Thromboplast Time Sodium Level 131 L Potassium Level 5.1 Chloride Level 95 L Carbon Dioxide Level 22 Anion Gap 14 H Blood Urea Nitrogen 23 H Creatinine 0.92 Est Glomerular > 60 Filtrat Rate mL/min Glucose Level 165 Calcium Level 9.6 Total Bilirubin 0.1 L Direct Bilirubin 0.00 Indirect Bilirubin 0.1 Aspartate Amino 23 Transf (AST/SGOT) Alanine 20 Aminotransferase (AL T/SGPT) Alkaline Phosphatase 603 H Troponin I 0.045 Total Protein 7.8 Albumin 3.4 Globulin 4.40 H Albumin/Globulin 0.77 Ratio Lactic Acid Level 0.7 Test 09/10/18 20:30 09/10/18 20:52 09/10/18 22:37 09/11/18 04:54 Bedside Glucose 150 139 166 White Blood Count 8.9 # Red Blood Count 2.18 #L Hemoglobin 6.4 #*L Hematocrit 18.8 #L Mean Corpuscular 86.2 Volume Mean Corpuscular 29.4 Hemoglobin Mean Corpuscular 34.0 Hemoglobin Concent Red Cell 13.2 Distribution Width Platelet Count 387 # Mean Platelet Volume 9.4 Immature 0.300 Granulocytes % Neutrophils % Segmented 63 Neutrophils % (Manual) Band Neutrophils % 16 H (Manual) Lymphocytes % Lymphocytes % 19 (Manual) Reactive Lymphocytes 1 H % (Manual) Monocytes % Monocytes % (Manual) 1 Eosinophils % Basophils % Nucleated Red Blood 0.0 Cells % Immature 0.030 Granulocytes # Neutrophils # Neutrophils # 5.7 (Manual) Band Neutrophils # 1.4 H Lymphocytes (Manual) 1.6 Lymphocytes # Reactive Lymphocytes 0.0 # Monocytes # Monocytes # (Manual) 0.0 L Eosinophils # Basophils # Nucleated Red Blood Cells # Platelet Estimate NORMAL Polychromasia 1+ Anisocytosis 2+ Microcytosis 2+ Sodium Level 133 L Potassium Level 4.5 Chloride Level 101 Carbon Dioxide Level 20 L Anion Gap 12 Blood Urea Nitrogen 18 Creatinine 0.80 Est Glomerular > 60 Filtrat Rate mL/min Glucose Level 164 Hemoglobin A1c 7.6 H Calcium Level 8.5 Magnesium Level 1.3 L Total Bilirubin 0.0 L Direct Bilirubin 0.00 Indirect Bilirubin 0.0 Aspartate Amino 23 Transf (AST/SGOT) Alanine 25 Aminotransferase (AL T/SGPT) Alkaline Phosphatase 499 H Total Protein 6.4 # Albumin 2.7 L Globulin 3.70 H Albumin/Globulin 0.72 Ratio Test 09/11/18 08:13 09/11/18 13:15 Bedside Glucose 165 170 Medications Medication Current Medications Piperacillin Sod/ Tazobactam Sod 100 ml @ 200 mls/hr Q6 IVPB Last administered on 09/11/18at 13:14; Admin Dose 200 MLS/HR; Start 09/11/18 at 00:00 Vancomycin HCl (Vanco Iv Per Pharmacy) VANCOMYCIN PER PHARMACY PER PROTOCOL XX ; Start 09/10/18 at 18:30 Sodium Chloride 1,000 ml @ 50 mls/hr Q20H IV Last administered on 09/10/18at 22:17; Admin Dose 50 MLS/HR; Start 09/10/18 at 18:27 IV Flush (NS 3 ml) 3 ml PER PROTOCOL IV ; Start 09/10/18 at 18:30 Ondansetron HCl (Zofran Inj) 4 mg Q6H PRN IV NAUSEA/VOMITING Last administered on 09/11/18at 08:08; Admin Dose 4 MG; Start 09/10/18 at 18:30 Acetaminophen (Tylenol Tab) 650 mg Q6H PRN PO .PAIN 1-3 OR TEMP Last administered on 09/11/18at 15:14; Admin Dose 650 MG; Start 09/10/18 at 18:30 Acetaminophen/ Hydrocodone Bitart ([place] (5/325)) 1 tab Q6H PRN PO .PAIN 4-6; Start 09/10/18 at 18:30 Morphine Sulfate (morphine) 2 mg Q4H PRN IV .PAIN 7-10; Start 09/10/18 at 18:30 Diagnostic Test (Pha) (Accu-Chek) 1 ea 02 XX ; Start 09/11/18 at 02:00 Insulin Glargine (Lantus) 9 units DAILY@2000 SC Last administered on 09/10/18 20:35; Admin Dose 9 UNITS; Start 09/10/18 at 20:00 Insulin Aspart (Novolog Insulin Pen) 3 unit WITH MEALS SC Last administered on 09/11/18 13:27; Admin Dose 3 UNIT; Start 09/11/18 at 08:00 Insulin Aspart (Novolog Insulin Pen) NOVOLOG *MILD* ALGORITHM WITH MEALS BEDTIME SC Last administered on 09/11/18 13:26; Admin Dose 1 UNIT; Start 09/10/18 at 21:00 Hydralazine HCl (Apresoline) 10 mg Q4H PRN IV sbp >160; Start 09/10/18 at 18:30 Atorvastatin Calcium (Lipitor) 20 mg QHS PO Last administered on 09/10/18 22:16; Admin Dose 20 MG; Start 09/10/18 at 21:00 Ferrous Sulfate (Ferrous Sulfate (Ec)) 325 mg DAILY PO Last administered on 09/11/18 08:11; Admin Dose 325 MG; Start 09/11/18 at 09:00 Metoprolol Tartrate (Lopressor) 25 mg BID PO Last administered on 09/11/18 08:12; Admin Dose 25 MG; Start 09/10/18 at 21:00 Vancomycin HCl 100 ml @ 100 mls/hr Q12H IVPB Last administered on 09/11/18 05:38; Admin Dose 100 MLS/HR; Start 09/11/18 at 05:00 Miscellaneous Information (*Rx Drug Level Order Reminder*) VANCOMYCIN TROUGH 09/12 AT 0400 ONCE ONCE XX ; Start 09/12/18 at 04:00; Stop 09/12/18 at 04:01 TRINY TUCKER NP Sep 11, 2018 16:03
[2018-09-11 19:54] VITALS: BP 151/80; PULSE 93; RESP 18
[2018-09-11] MEDS: ATORVASTATIN 20 MG TAB PO SCH (20:59)
[2018-09-11] MEDS: INSULIN GLARGINE [LANTus] (100 UNITS/ML) SYG SC SCH (21:02)
[2018-09-12] MEDS: PIPER-TAZO 3.375 GM IV (PMX) 100 ML IVPB SCH ×4 (00:13→18:54)
[2018-09-12] MEDS: ACCU-CHEK XX SCH (02:00)
[2018-09-12 02:02] VITALS: BP 133/66; PULSE 80; RESP 18
[2018-09-12] MEDS: VANCOMYCIN 750 MG (PMX) 250 ML IVPB SCH ×2 (05:04→16:21)
[2018-09-12 08:07] VITALS: BP 153/73; PULSE 96; RESP 16
[2018-09-12] MEDS: METOPROLOL 25 MG TAB PO SCH ×2 (08:09→20:50)
[2018-09-12] MEDS: FERROUS SULFATE (EC) 325 MG TAB PO SCH (08:09)
[2018-09-12] MEDS: INSULIN ASPART [NOVOLOG] 3 ML PEN SC SCH ×7 (08:13→21:00)
[2018-09-12] MEDS: SOD CHLORIDE 0.9% 1,000 ML IV SCH (11:17)
--- NOTE | 2018-09-12 11:42 | PN ---
Date/Time of Note Date/Time of Note DATE: 09/12/18 TIME: 11:41 Objective Vitals Vital Signs Date Temp Pulse Resp B/P (MAP) Pulse Ox O2 O2 Flow FiO2 Time Delivery Rate 09/12/18 97.8 96 16 153/73 99 Room Air 08:07 (99) Intake and Output 09/11/18 09/11/18 09/12/18 1515:00 23:00 07:00 IntakeIntake Total 1310 ml 680 ml 1450 ml OutputOutput Total 400 ml 400 ml BalanceBalance 910 ml 280 ml 1450 ml Results Result Diagram: 09/12/18 0345 09/12/18 0345 Medications Medications Current Medications Piperacillin Sod/ Tazobactam Sod 100 ml @ 200 mls/hr Q6 IVPB Last administered on 09/12/18at 11:16; Admin Dose 200 MLS/HR; Start 09/11/18 at 00:00 Vancomycin HCl (Vanco Iv Per Pharmacy) VANCOMYCIN PER PHARMACY PER PROTOCOL XX ; Start 09/10/18 at 18:30 Sodium Chloride 1,000 ml @ 50 mls/hr Q20H IV Last administered on 09/12/18at 11:17; Admin Dose 50 MLS/HR; Start 09/10/18 at 18:27 IV Flush (NS 3 ml) 3 ml PER PROTOCOL IV ; Start 09/10/18 at 18:30 Ondansetron HCl (Zofran Inj) 4 mg Q6H PRN IV NAUSEA/VOMITING Last administered on 09/11/18at 08:08; Admin Dose 4 MG; Start 09/10/18 at 18:30 Acetaminophen (Tylenol Tab) 650 mg Q6H PRN PO .PAIN 1-3 OR TEMP Last administered on 09/11/18at 22:46; Admin Dose 650 MG; Start 09/10/18 at 18:30 Acetaminophen/ Hydrocodone Bitart ([place] (5/325)) 1 tab Q6H PRN PO .PAIN 4-6; Start 09/10/18 at 18:30 Morphine Sulfate (morphine) 2 mg Q4H PRN IV .PAIN 7-10; Start 09/10/18 at 18:30 Diagnostic Test (Pha) (Accu-Chek) 1 ea 02 XX ; Start 09/11/18 at 02:00 Insulin Glargine (Lantus) 9 units DAILY@2000 SC Last administered on 09/11/18 21:02; Admin Dose 9 UNITS; Start 09/10/18 at 20:00 Insulin Aspart (Novolog Insulin Pen) 3 unit WITH MEALS SC Last administered on 09/12/18at 08:13; Admin Dose 3 UNIT; Start 09/11/18 at 08:00 Insulin Aspart (Novolog Insulin Pen) NOVOLOG *MILD* ALGORITHM WITH MEALS BEDTIME SC Last administered on 09/12/18 08:14; Admin Dose 1 UNIT; Start 09/10/18 at 21:00 Hydralazine HCl (Apresoline) 10 mg Q4H PRN IV sbp >160; Start 09/10/18 at 18:30 Atorvastatin Calcium (Lipitor) 20 mg QHS PO Last administered on 09/11/18at 20:59; Admin Dose 20 MG; Start 09/10/18 at 21:00 Ferrous Sulfate (Ferrous Sulfate (Ec)) 325 mg DAILY PO Last administered on 09/12/18 08:09; Admin Dose 325 MG; Start 09/11/18 at 09:00 Metoprolol Tartrate (Lopressor) 25 mg BID PO Last administered on 09/12/18 08:09; Admin Dose 25 MG; Start 09/10/18 at 21:00 Sodium Hypochlorite ([place] ([place] )) 1 applic DAILY IRR ; Start 09/12/18 at 09:00 Vancomycin/Sodium Chloride 250 ml @ 125 mls/hr Q12H IVPB Last administered on 09/12/18at 05:04; Admin Dose 125 MLS/HR; Start 09/12/18 at 05:00 Miscellaneous Information (*Rx Drug Level Order Reminder*) VANCO TR 3/ 2 AT 1600 ONCE ONCE XX ; Start 09/13/18 at 16:00; Stop 09/13/18 at 16:01 VTE Prophylaxis Risk score (from Nsg)>0 risk: 2 SCD applied (from Nsg): Yes Lines/Catheters IV Catheter Type: Galaviz in Place: No Assessment/Plan Hospital Course Subjective No acute changes overnight Objective Physical exam General: Patient is laying in bed and answers questions appropriately Mentation: Patient is alert and oriented 4, Head: Normocephalic atraumatic Eyes: EOMI, pupils reactive to light Neck: Supple, nontender, midline Respiratory: Clear to auscultation bilaterally Cardiovascular: regular rate, no obvious murmurs Gastrointestinal: non-tender to palpation, bowel sounds heard. Neurological: Moves all extremities spontaneously Skin: Left foot wound ulcer, bandaged, Assessment and plan Left foot wound, possible osteomyelitis, -Acute on chronic left foot wound -Podiatry notified -IV antibiotic -MRI noted -Arterial study noted -Wound culture pending -ID consulted -vascular consulted -pending OR debridement Sepsis -Secondary to above left foot wound -Blood cultures -IV fluids -Wound culture -Monitor -IV fluids Anemia -Chronic -On iron supplements Diabetes mellitus -Insulin for now Dyslipidemia -Continue atorvastatin Electrolyte derangement -Mild, replete as needed Hypertension -Continue metoprolol Disposition -Podiatry and infectious disease consultation -OR debridement per podiatry ROLANDA Guo Sep 12, 2018 11:42
[2018-09-12] MEDS ORDERED: MAGNESIUM SULFATE 2 GM/50 ML 50 ML IVPB ONE (13:00)
[2018-09-12 14:41] VITALS: BP 146/69; PULSE 85; RESP 16
[2018-09-12] MEDS: SODIUM HYPOCHLORITE (1/40) 1 APPLIC BTL IRR SCH (14:54)
--- NOTE | 2018-09-12 18:01 | PN ---
Date/Time of Note Date/Time of Note DATE: 09/12/18 TIME: 18:01 Assessment/Plan VTE Prophylaxis Risk score (from Nsg)>0 risk: 2 Pharmacological prophylaxis: other Lines/Catheters IV Catheter Type (from Nrsg): Urinary Cath still in place: No Assessment/Plan Assessment/Plan Left foot diabetic ulcer Left foot cellulitis Left foot abscess Left foot osteomyelitis Left lower extremity failed graft site DM2 with peripheral neuropathy PAD Plan Patient had adamantly refused a below knee amputation. It was discussed with the patient that there is poor prognosis. Patient is very likely to have a chopart amputation which may be her best option in terms of limb salvage. Her midfoot has displayed instability with limited dorsiflexion and there is absent dorsiflexion and plantar flexion to the digits. Patient wanted time to think about her options before making a final decisions. MRI was reviewed and there is signs of osteomyelitis to the midfoot and to digits. Wound cultures showing mixed organism growth. Continue with daily dressing changes. Offload heels with pillows. Result Diagram: 09/12/18 0345 09/12/18 0345 Results 24hrs Laboratory Tests Test 09/11/18 20:56 09/12/18 02:14 09/12/18 03:45 09/12/18 08:11 Bedside Glucose 184 186 165 White Blood Count 7.1 # Red Blood Count 2.75 #L Hemoglobin 8.2 #L Hematocrit 23.9 #L Mean Corpuscular Volume 86.9 Mean Corpuscular 29.8 Hemoglobin Mean Corpuscular 34.3 Hemoglobin Concent Red Cell Distribution 13.5 Width Platelet Count 315 Mean Platelet Volume 8.8 Immature Granulocytes % 0.300 Neutrophils % 63.7 Lymphocytes % 25.1 Monocytes % 9.8 Eosinophils % 0.8 Basophils % 0.3 Nucleated Red Blood 0.0 Cells % Immature Granulocytes # 0.020 Neutrophils # 4.5 Lymphocytes # 1.8 Monocytes # 0.7 Eosinophils # 0.1 Basophils # 0.0 Nucleated Red Blood 0.0 Cells # Sodium Level 138 Potassium Level 4.4 Chloride Level 109 Carbon Dioxide Level 21 Anion Gap 8 Blood Urea Nitrogen 13 Creatinine 0.72 Est Glomerular Filtrat > 60 Rate mL/min Glucose Level 162 Calcium Level 8.8 Magnesium Level 1.4 L Total Bilirubin 0.0 L Direct Bilirubin 0.00 Indirect Bilirubin 0.0 Aspartate Amino 22 Transf (AST/SGOT) Alanine 23 Aminotransferase (ALT/S GPT) Alkaline Phosphatase 484 H Total Protein 6.1 Albumin 2.6 L Globulin 3.50 H Albumin/Globulin Ratio 0.74 Vancomycin Level Trough 8.0 L Test 09/12/18 13:07 09/12/18 17:42 Bedside Glucose 163 192 Subjective 24 Hr Interval Summary Free Text/Dictation No acute events overnight Exam/Review of Systems Exam Vitals Vital Signs Date Temp Pulse Resp B/P (MAP) Pulse Ox O2 O2 Flow FiO2 Time Delivery Rate 09/12/18 97.5 85 16 146/69 100 Room Air 14:41 (94) Intake and Output 09/11/18 09/11/18 09/12/18 1515:00 23:00 07:00 IntakeIntake Total 1310 ml 680 ml 1450 ml OutputOutput Total 400 ml 400 ml BalanceBalance 910 ml 280 ml 1450 ml Exam Left foot medial and plantar ulceration 10 x 8 x 2.0cm there is bone, tendon muscle exposed. Wound tunnels into the central compartment of the foot ~2-3cm. Wound base mixed granular and fibrotic with focal areas of necrosis noted. Left foot multiple dorsal ulceration sites at previous skin graft site 5 x 5cm granular wound base no tunneling appreciated. Left foot lateral ulceration site 2 x 2 x 0.8cm ulceration with mild granulation tissue formation and bone exposed Absent protective sensations Left 2nd digit with gangrene formation Left plantar hallux ulcer with fibronecrotic wound base 3 x 3 x 0.6cm purulence appreciated Left 1st dorsal interspace ulceration 4 x 4 x 1.5cm which communicates with the plantar ulceration site. Purulence is expressed approximately 1-2mL Unable to dorsiflex digits Weak ankle dorsiflexion Foot X-ray IMPRESSION: 1. Large plantar medial midfoot soft tissue defect with gas extending to the level of the second MTP joint. 2. Well-defined defect in the medial base of the first metatarsal and medial cuneiform likely postsurgical. Medial base of the first metatarsal margin appears smooth. Cortical indistinctness of the medial margin of the medial cuneiform. Correlate for date of surgery. Findings are concerning for osteomyelitis. 3. Interval widening of the second MTP joint space with irregularity of the lateral base of the second proximal phalanx, as well as widening of the second PIP joint space with irregularity of the head of the second proximal phalanx likely representing joint effusions, suspicious for septic arthritis and osteomyelitis. Marked soft tissue swelling in the second digit and forefoot. 4. Severe diffuse osteopenia. 5. Recommend MRI for further evaluation. Non invasive arterial studies IMPRESSION: Patent left lower extremity arteries. Monophasic waveforms from the left popliteal artery distally. This is suggestive of inflow disease due to upstream stenosis. MRI Foot IMPRESSION: 1. Bone marrow edema and bone destructive changes in the midfoot as described. Findings are likely a neuropathic joint/Charcot joint related and could also represent polyostotic osteomyelitis. 2. Soft tissue air consistent with a clinical impression of gangrene. 3. No abscess is seen. MRI Ankle IMPRESSION: 1. Findings in the bones of the hind foot suggesting reactive edema. No bone destructive changes to confirm osteomyelitis. 2. Destructive changes of the bones of the midfoot consistent with Charcot changes versus polyostotic osteomyelitis. 3. No evidence for soft tissue air in the ankle to suggest gangrene. 4. No abscess identified in the ankle region. Results Results 24hrs Laboratory Tests Test 09/11/18 20:56 09/12/18 02:14 09/12/18 03:45 09/12/18 08:11 Bedside Glucose 184 186 165 White Blood Count 7.1 # Red Blood Count 2.75 #L Hemoglobin 8.2 #L Hematocrit 23.9 #L Mean Corpuscular Volume 86.9 Mean Corpuscular 29.8 Hemoglobin Mean Corpuscular 34.3 Hemoglobin Concent Red Cell Distribution 13.5 Width Platelet Count 315 Mean Platelet Volume 8.8 Immature Granulocytes % 0.300 Neutrophils % 63.7 Lymphocytes % 25.1 Monocytes % 9.8 Eosinophils % 0.8 Basophils % 0.3 Nucleated Red Blood 0.0 Cells % Immature Granulocytes # 0.020 Neutrophils # 4.5 Lymphocytes # 1.8 Monocytes # 0.7 Eosinophils # 0.1 Basophils # 0.0 Nucleated Red Blood 0.0 Cells # Sodium Level 138 Potassium Level 4.4 Chloride Level 109 Carbon Dioxide Level 21 Anion Gap 8 Blood Urea Nitrogen 13 Creatinine 0.72 Est Glomerular Filtrat > 60 Rate mL/min Glucose Level 162 Calcium Level 8.8 Magnesium Level 1.4 L Total Bilirubin 0.0 L Direct Bilirubin 0.00 Indirect Bilirubin 0.0 Aspartate Amino 22 Transf (AST/SGOT) Alanine 23 Aminotransferase (ALT/S GPT) Alkaline Phosphatase 484 H Total Protein 6.1 Albumin 2.6 L Globulin 3.50 H Albumin/Globulin Ratio 0.74 Vancomycin Level Trough 8.0 L Test 09/12/18 13:07 09/12/18 17:42 Bedside Glucose 163 192 Medications Medication Current Medications Piperacillin Sod/ Tazobactam Sod 100 ml @ 200 mls/hr Q6 IVPB Last administered on 09/12/18 11:16; Admin Dose 200 MLS/HR; Start 09/11/18 at 00:00 Vancomycin HCl (Vanco Iv Per Pharmacy) VANCOMYCIN PER PHARMACY PER PROTOCOL XX ; Start 09/10/18 at 18:30 Sodium Chloride 1,000 ml @ 50 mls/hr Q20H IV Last administered on 09/12/18 11:17; Admin Dose 50 MLS/HR; Start 09/10/18 at 18:27 IV Flush (NS 3 ml) 3 ml PER PROTOCOL IV ; Start 09/10/18 at 18:30 Ondansetron HCl (Zofran Inj) 4 mg Q6H PRN IV NAUSEA/VOMITING Last administered on 09/11/18at 08:08; Admin Dose 4 MG; Start 09/10/18 at 18:30 Acetaminophen (Tylenol Tab) 650 mg Q6H PRN PO .PAIN 1-3 OR TEMP Last administered on 09/11/18at 22:46; Admin Dose 650 MG; Start 09/10/18 at 18:30 Acetaminophen/ Hydrocodone Bitart ([place] (5/325)) 1 tab Q6H PRN PO .PAIN 4-6; Start 09/10/18 at 18:30 Morphine Sulfate (morphine) 2 mg Q4H PRN IV .PAIN 7-10; Start 09/10/18 at 18:30 Diagnostic Test (Pha) (Accu-Chek) 1 XX ; Start 09/11/18 at 02:00 Insulin Glargine (Lantus) 9 units DAILY@2000 SC Last administered on 09/11/18at 21:02; Admin Dose 9 UNITS; Start 09/10/18 at 20:00 Insulin Aspart (Novolog Insulin Pen) 3 unit WITH MEALS SC Last administered on 09/12/18at 17:46; Admin Dose 3 UNIT; Start 09/11/18 at 08:00 Insulin Aspart (Novolog Insulin Pen) NOVOLOG *MILD* ALGORITHM WITH MEALS BEDTIME SC Last administered on 09/12/18 17:47; Admin Dose 2 UNIT; Start 09/10/18 at 21:00 Hydralazine HCl (Apresoline) 10 mg Q4H PRN IV sbp >160; Start 09/10/18 at 18:30 Atorvastatin Calcium (Lipitor) 20 mg QHS PO Last administered on 09/11/18at 20:59; Admin Dose 20 MG; Start 09/10/18 at 21:00 Ferrous Sulfate (Ferrous Sulfate (Ec)) 325 mg DAILY PO Last administered on 09/12/18 08:09; Admin Dose 325 MG; Start 09/11/18 at 09:00 Metoprolol Tartrate (Lopressor) 25 mg BID PO Last administered on 09/12/18 08:09; Admin Dose 25 MG; Start 09/10/18 at 21:00 Sodium Hypochlorite ([place]akin'S (Dilute )) 1 applic DAILY IRR Last administered on 09/12/18 14:54; Admin Dose 1 APPLIC; Start 09/12/18 at 09:00 Vancomycin/Sodium Chloride 250 ml @ 125 mls/hr Q12H IVPB Last administered on 09/12/18 16:21; Admin Dose 125 MLS/HR; Start 09/12/18 at 05:00 Miscellaneous Information (*Rx Drug Level Order Reminder*) JOSHUAO TR 09/13 AT 1600 ONCE ONCE XX ; Start 09/13/18 at 16:00; Stop 09/13/18 at 16:01 WALTER TIM DPM Sep 12, 2018 18:01
[2018-09-12 20:22] VITALS: BP 159/66; PULSE 90; RESP 18
[2018-09-12] MEDS: ATORVASTATIN 20 MG TAB PO SCH (20:50)
[2018-09-12] MEDS: INSULIN GLARGINE [LANTus] (100 UNITS/ML) SYG SC SCH (20:52)
[2018-09-13] MEDS: PIPER-TAZO 3.375 GM IV (PMX) 100 ML IVPB SCH ×4 (01:23→17:11)
[2018-09-13] MEDS: ACCU-CHEK XX SCH (02:00)
[2018-09-13 02:10] VITALS: BP 158/70; PULSE 85; RESP 18
[2018-09-13] MEDS: VANCOMYCIN 750 MG (PMX) 250 ML IVPB SCH ×2 (04:41→18:08)
[2018-09-13] MEDS: SOD CHLORIDE 0.9% 1,000 ML IV SCH ×2 (06:27→16:31)
[2018-09-13] MEDS: INSULIN ASPART [NOVOLOG] 3 ML PEN SC SCH ×7 (08:00→20:42)
[2018-09-13 08:04] VITALS: BP 150/72; PULSE 89; RESP 20
[2018-09-13] MEDS: FERROUS SULFATE (EC) 325 MG TAB PO SCH (09:35)
[2018-09-13] MEDS: METOPROLOL 25 MG TAB PO SCH ×2 (09:35→20:33)
[2018-09-13] MEDS: SODIUM HYPOCHLORITE (1/40) 1 APPLIC BTL IRR SCH (09:35)
--- NOTE | 2018-09-13 11:31 | PN ---
Date/Time of Note Date/Time of Note DATE: 09/13/18 TIME: 11:31 Objective Vitals Vital Signs Date Temp Pulse Resp B/P (MAP) Pulse Ox O2 O2 Flow FiO2 Time Delivery Rate 09/13/18 98.3 89 20 150/72 98 08:04 (98) 09/12/18 Room Air 20:22 Intake and Output 09/12/18 09/12/18 09/13/18 1515:00 23:00 07:00 IntakeIntake Total 240 ml 750 ml 350 ml BalanceBalance 240 ml 750 ml 350 ml Results Result Diagram: 09/13/18 0547 09/13/1847 Medications Medications Current Medications Piperacillin Sod/ Tazobactam Sod 100 ml @ 200 mls/hr Q6 IVPB Last administered on 09/13/18at 07:01; Admin Dose 200 MLS/HR; Start 09/11/18 at 00:00 Vancomycin HCl (Vanco Iv Per Pharmacy) VANCOMYCIN PER PHARMACY PER PROTOCOL XX ; Start 09/10/18 at 18:30 Sodium Chloride 1,000 ml @ 50 mls/hr Q20H IV Last administered on 09/12/18at 11:17; Admin Dose 50 MLS/HR; Start 09/10/18 at 18:27 IV Flush (NS 3 ml) 3 ml PER PROTOCOL IV ; Start 09/10/18 at 18:30 Ondansetron HCl (Zofran Inj) 4 mg Q6H PRN IV NAUSEA/VOMITING Last administered on 09/11/18at 08:08; Admin Dose 4 MG; Start 09/10/18 at 18:30 Acetaminophen (Tylenol Tab) 650 mg Q6H PRN PO .PAIN 1-3 OR TEMP Last administered on 09/11/18at 22:46; Admin Dose 650 MG; Start 09/10/18 at 18:30 Acetaminophen/ Hydrocodone Bitart ([place] (5/325)) 1 tab Q6H PRN PO .PAIN 4-6; Start 09/10/18 at 18:30 Morphine Sulfate (morphine) 2 mg Q4H PRN IV .PAIN 7-10; Start 09/10/18 at 18:30 Diagnostic Test (Pha) (Accu-Chek) 1 ea 02 XX ; Start 09/11/18 at 02:00 Insulin Glargine (Lantus) 9 units DAILY@2000 SC Last administered on 09/12/18 20:52; Admin Dose 9 UNITS; Start 09/10/18 at 20:00 Insulin Aspart (Novolog Insulin Pen) 3 unit WITH MEALS SC Last administered on 09/13/18 09:44; Admin Dose 3 UNIT; Start 09/11/18 at 08:00 Insulin Aspart (Novolog Insulin Pen) NOVOLOG *MILD* ALGORITHM WITH MEALS B EDTIME SC Last administered on 09/12/18 17:47; Admin Dose 2 UNIT; Start 09/10/18 at 21:00 Hydralazine HCl (Apresoline) 10 mg Q4H PRN IV sbp >160; Start 09/10/18 at 18:30 Atorvastatin Calcium (Lipitor) 20 mg QHS PO Last administered on 09/12/18 20:50; Admin Dose 20 MG; Start 09/10/18 at 21:00 Ferrous Sulfate (Ferrous Sulfate (Ec)) 325 mg DAILY PO Last administered on 09/13/18 09:35; Admin Dose 325 MG; Start 09/11/18 at 09:00 Metoprolol Tartrate (Lopressor) 25 mg BID PO Last administered on 09/13/18 09:35; Admin Dose 25 MG; Start 09/10/18 at 21:00 Sodium Hypochlorite (Dakin'S (Dilute )) 1 applic DAILY IRR Last administered on 09/13/18 09:35; Admin Dose 1 APPLIC; Start 09/12/18 at 09:00 Vancomycin/Sodium Chloride 250 ml @ 125 mls/hr Q12H IVPB Last administered on 09/13/18 04:41; Admin Dose 125 MLS/HR; Start 09/12/18 at 05:00 Miscellaneous Information (*Rx Drug Level Order Reminder*) VANCO TR 3/ AT 1600 ONCE ONCE XX ; Start 09/13/18 at 16:00; Stop 09/13/18 at 16:01 VTE Prophylaxis Risk score (from Nsg)>0 risk: 2 SCD applied (from Nsg): Yes Lines/Catheters IV Catheter Type: Galaviz in Place: No Assessment/Plan Hospital Course Subjective No acute changes overnight Objective Physical exam General: Patient is laying in bed and answers questions appropriately Mentation: Patient is alert and oriented 4, Head: Normocephalic atraumatic Eyes: EOMI, pupils reactive to light Neck: Supple, nontender, midline Respiratory: Clear to auscultation bilaterally Cardiovascular: regular rate, no obvious murmurs Gastrointestinal: non-tender to palpation, bowel sounds heard. Neurological: Moves all extremities spontaneously Skin: Left foot wound ulcer, bandaged, Assessment and plan Left foot wound, possible osteomyelitis, -Acute on chronic left foot wound -Podiatry notified -IV antibiotic -MRI noted -Arterial study noted -Wound culture pending -ID consulted -vascular consulted -pending OR debridement Sepsis -Secondary to above left foot wound -Blood cultures -IV fluids -Wound culture -Monitor -IV fluids Anemia -Chronic -On iron supplements Diabetes mellitus -Insulin for now Dyslipidemia -Continue atorvastatin Electrolyte derangement -Mild, replete as needed Hypertension -Continue metoprolol Disposition -Podiatry and infectious disease consultation -OR debridement per podiatry ROLANDA Guo Sep 13, 2018 11:31
[2018-09-13 14:35] VITALS: BP 149/73; PULSE 81; RESP 20
[2018-09-13] MEDS ORDERED: GLUCAGON 1 MG INJ IM PRN (18:00)
[2018-09-13] MEDS ORDERED: DEXTROSE 50% 50 ML SYRINGE IV PRN ×2 (18:00)
[2018-09-13] MEDS ORDERED: GLUCOSE GEL 15 GRAM TUBE BUCCAL PRN (18:00)
[2018-09-13] MEDS ORDERED: GLUCOSE GEL 15 GRAM TUBE PO PRN ×2 (18:00)
[2018-09-13 20:17] VITALS: BP 188/84; PULSE 91; RESP 18
[2018-09-13] MEDS: ATORVASTATIN 20 MG TAB PO SCH (20:33)
[2018-09-13] MEDS: ACETAMINOPHEN 325 MG TAB PO PRN (20:33)
[2018-09-13] MEDS: INSULIN GLARGINE [LANTus] (100 UNITS/ML) SYG SC SCH (20:39)
[2018-09-13] MEDS ORDERED: VANCOMYCIN 500 MG (PMX) 100 ML IVPB SCH (21:30)
[2018-09-14] MEDS: PIPER-TAZO 3.375 GM IV (PMX) 100 ML IVPB SCH ×3 (00:03→12:24)
[2018-09-14] MEDS: ACCU-CHEK XX SCH (01:15)
[2018-09-14] MEDS ORDERED: VANCOMYCIN 500 MG (PMX) 100 ML IVPB SCH (02:00)
[2018-09-14 02:03] VITALS: BP 139/72; PULSE 73; RESP 18
[2018-09-14] MEDS: SOD CHLORIDE 0.9% 1,000 ML IV SCH ×2 (02:27→20:28)
[2018-09-14] MEDS: VANCOMYCIN HCL 1.25 GM in SOD CHLORIDE 0.9% 250 ML IVPB SCH ×2 (06:21→17:55)
[2018-09-14] MEDS: INSULIN ASPART [NOVOLOG] 3 ML PEN SC SCH ×7 (08:11→20:27)
[2018-09-14] MEDS: FERROUS SULFATE (EC) 325 MG TAB PO SCH (09:13)
[2018-09-14] MEDS: METOPROLOL 25 MG TAB PO SCH ×2 (09:14→20:24)
[2018-09-14 09:46] VITALS: BP 154/74; PULSE 92; RESP 18
[2018-09-14] MEDS ORDERED: MAGNESIUM OXIDE 400 MG TAB PO ONE (11:00)
--- NOTE | 2018-09-14 13:02 | PN ---
Date/Time of Note Date/Time of Note DATE: 09/14/18 TIME: 13:02 Objective Vitals Vital Signs Date Temp Pulse Resp B/P (MAP) Pulse Ox O2 O2 Flow FiO2 Time Delivery Rate 09/14/18 97.9 92 18 154/74 100 09:46 (100) 09/12/18 Room Air 20:22 Intake and Output 09/13/18 09/13/18 09/14/18 1414:59 22:59 06:59 IntakeIntake Total 1220 ml 1630 ml 970 ml OutputOutput Total 1150 ml 850 ml 600 ml BalanceBalance 70 ml 780 ml 370 ml Results Result Diagram: 09/14/1843 09/14/18 05 Medications Medications Current Medications Piperacillin Sod/ Tazobactam Sod 100 ml @ 200 mls/hr Q6 IVPB Last administered on 09/14/18at 12:24; Admin Dose 200 MLS/HR; Start 09/11/18 at 00:00 Vancomycin HCl (Vanco Iv Per Pharmacy) VANCOMYCIN PER PHARMACY PER PROTOCOL XX ; Start 09/10/18 at 18:30 Sodium Chloride 1,000 ml @ 50 mls/hr Q20H IV Last administered on 09/13/18at 16:31; Admin Dose 50 MLS/HR; Start 09/10/18 at 18:27 IV Flush (NS 3 ml) 3 ml PER PROTOCOL IV ; Start 09/10/18 at 18:30 Ondansetron HCl (Zofran Inj) 4 mg Q6H PRN IV NAUSEA/VOMITING Last administered on 09/11/18at 08:08; Admin Dose 4 MG; Start 09/10/18 at 18:30 Acetaminophen (Tylenol Tab) 650 mg Q6H PRN PO .PAIN 1-3 OR TEMP Last administered on 09/13/18at 20:33; Admin Dose 650 MG; Start 09/10/18 at 18:30 Acetaminophen/ Hydrocodone Bitart ([place] (5/325)) 1 tab Q6H PRN PO .PAIN 4-6; Start 09/10/18 at 18:30 Morphine Sulfate (morphine) 2 mg Q4H PRN IV .PAIN 7-10; Start 09/10/18 at 18:30 Diagnostic Test (Pha) (Accu-Chek) 1 XX ; Start 09/11/18 at 02:00 Insulin Aspart (Novolog Insulin Pen) NOVOLOG *MILD* ALGORITHM WITH MEALS BEDTIME SC Last administered on 09/14/18 08:12; Admin Dose 3 UNIT; Start 09/10/18 at 21:00 Hydralazine HCl (Apresoline) 10 mg Q4H PRN IV sbp >160; Start 09/10/18 at 18:30 Atorvastatin Calcium (Lipitor) 20 mg QHS PO Last administered on 09/13/18at 20:33; Admin Dose 20 MG; Start 09/10/18 at 21:00 Ferrous Sulfate (Ferrous Sulfate (Ec)) 325 mg DAILY PO Last administered on 09/14/18 09:13; Admin Dose 325 MG; Start 09/11/18 at 09:00 Metoprolol Tartrate (Lopressor) 25 mg BID PO Last administered on 09/14/18 09:14; Admin Dose 25 MG; Start 09/10/18 at 21:00 Sodium Hypochlorite (Dakin'S (Dilute )) 1 applic DAILY IRR Last admin istered on 09/13/18at 09:35; Admin Dose 1 APPLIC; Start 09/12/18 at 09:00 Miscellaneous Information 1 ea NOTE XX ; Start 09/13/18 at 18:00 Glucose (Glutose) 15 gm Q15M PRN PO DECREASED GLUCOSE; Start 09/13/18 at 18:00 Glucose (Glutose) 22.5 gm Q15M PRN PO DECREASED GLUCOSE; Start 09/13/18 at 18:00 Dextrose (D50w Syringe) 25 ml Q15M PRN IV DECREASED GLUCOSE; Start 09/13/18 at 18:00 Dextrose (D50w Syringe) 50 ml Q15M PRN IV DECREASED GLUCOSE; Start 09/13/18 at 18:00 Glucagon (Glucagen) 1 mg Q15M PRN IM DECREASED GLUCOSE; Start 09/13/18 at 18:00 Glucose (Glutose) 15 gm Q15M PRN BUCCAL DECREASED GLUCOSE; Start 09/13/18 at 18:00 Vancomycin HCl 1.25 gm/Sodium Chloride 250 ml @ 83.333 mls/ hr Q12H IVPB Last administered on 09/14/18 06:21; Admin Dose 83.333 MLS/HR; Start 09/14/18 at 06:00 Insulin Aspart (Novolog Insulin Pen) 4 unit WITH MEALS SC ; Start 09/14/18 at 12:00 Insulin Glargine (Lantus) 14 units DAILY@2000 SC ; Start 09/14/18 at 20:00 Miscellaneous Information (*Rx Drug Level Order Reminder*) VANCO TR 09/15 AT 1700 ONCE ONCE XX ; Start 09/15/18 at 17:00; Stop 09/15/18 at 17:01 VTE Prophylaxis Risk score (from Ns)>0 risk: 3 SCD applied (from Ns): Yes Lines/Catheters IV Catheter Type: Galaviz in Place: No Assessment/Plan Hospital Course Subjective No acute changes overnight Objective Physical exam General: Patient is laying in bed and answers questions appropriately Mentation: Patient is alert and oriented 4, Head: Normocephalic atraumatic Eyes: EOMI, pupils reactive to light Neck: Supple, nontender, midline Respiratory: Clear to auscultation bilaterally Cardiovascular: regular rate, no obvious murmurs Gastrointestinal: non-tender to palpation, bowel sounds heard. Neurological: Moves all extremities spontaneously Skin: Left foot wound ulcer, bandaged, Assessment and plan Left foot wound, possible osteomyelitis, -Acute on chronic left foot wound -Podiatry notified -IV antibiotic -MRI noted -Arterial study noted -Wound culture pending -ID consulted -vascular consulted -pending OR debridement Sepsis -Secondary to above left foot wound -Blood cultures -IV fluids -Wound culture -Monitor -IV fluids Anemia -Chronic -On iron supplements Diabetes mellitus -Insulin for now Dyslipidemia -Continue atorvastatin Electrolyte derangement -Mild, replete as needed Hypertension -Continue metoprolol Disposition -Podiatry and infectious disease consultation -OR debridement per podiatry ROLANDA Guo Sep 14, 2018 13:02
[2018-09-14 13:38] VITALS: BP 174/84; PULSE 83; RESP 18
[2018-09-14] MEDS: ACETAMINOPHEN 325 MG TAB PO PRN (16:17)
[2018-09-14] MEDS: SODIUM HYPOCHLORITE (1/40) 1 APPLIC BTL IRR SCH (16:34)
--- NOTE | 2018-09-14 16:40 | CONS ---
Assessment/Plan Assessment/Plan Hospital Course (Demo Recall) Alert, feels better, no fevers, nad Antimicrobials: Vanco Zosyn Chest x-ray revealed no acute disease. Arterial study of left lower extremity showed inflow disease due to upstream stenosis Microbiology: Left ankle wound culture growing Corynebacterium, strep pyogenous and MRSA Vanco trough yesterday 9.1, BUN 9 creatinine 0.69 PHYSICAL EXAMINATION: GENERAL: This is a well-developed middle-aged woman who is in no distress. HEENT: Head is atraumatic, normocephalic. NECK: Supple. CHEST: Rise symmetrical. Breath sounds diminished to bases. HEART: S1, S2. ABDOMEN: Soft. Bowel tones present. EXTREMITIES: Left lower extremity dressing intact ASSESSMENT: 1. Sepsis secondary to #2 2. Left foot cellulitis, abscess, osteomyelitis, status post multiple incision and drainage/ skin graft 3. Diabetes 4. Diabetic neuropathy/PAD. 5. Anemia. PLAN: Clinically stable, DC Zosyn, continue vancomycin, follow podiatry recommendations, patient needs amputation Consultation Date/Type/Reason Admit Date/Time Sep 10, 2018 at 18:26 Initial Consult Date Type of Consult id Date/Time of Note DATE: 09/14/18 TIME: 16:38 Exam/Review of Systems Exam Vitals Vital Signs Date Temp Pulse Resp B/P (MAP) Pulse Ox O2 O2 Flow FiO2 Time Delivery Rate 09/14/18 98.6 83 18 174/84 99 13:38 (114) 09/12/18 Room Air 20:22 Intake and Output 09/13/18 09/13/18 09/14/18 1515:00 23:00 07:00 IntakeIntake Total 1220 ml 1630 ml 970 ml OutputOutput Total 1150 ml 850 ml 600 ml BalanceBalance 70 ml 780 ml 370 ml Results Result Diagram: 09/14/18 0543 09/14/18 0543 Results 24hrs Laboratory Tests Test 09/13/18 16:48 09/13/18 18:03 09/13/18 20:37 09/14/18 05:43 Vancomycin Level 9.1 L Trough Bedside Glucose 230 H 162 White Blood Count 6.5 Red Blood Count 2.78 L Hemoglobin 8.2 L Hematocrit 24.5 L Mean Corpuscular 88.1 Volume Mean Corpuscular 29.5 Hemoglobin Mean Corpuscular 33.5 Hemoglobin Concent Red Cell 13.4 Distribution Width Platelet Count 356 Mean Platelet 8.9 Volume Immature 0.500 H Granulocytes % Neutrophils % 57.2 Lymphocytes % 31.5 Monocytes % 8.8 Eosinophils % 1.5 Basophils % 0.5 Nucleated Red Blood 0.0 Cells % Immature 0.030 Granulocytes # Neutrophils # 3.7 Lymphocytes # 2.0 Monocytes # 0.6 Eosinophils # 0.1 Basophils # 0.0 Nucleated Red Blood 0.0 Cells # Sodium Level 139 Potassium Level 4.3 Chloride Level 110 Carbon Dioxide 22 Level Anion Gap 7 Blood Urea Nitrogen 9 Creatinine 0.69 Est Glomerular > 60 Filtrat Rate mL/min Glucose Level 247 #H Calcium Level 8.7 Phosphorus Level 4.3 Magnesium Level 1.6 L Test 09/14/18 06:39 09/14/18 08:03 09/14/18 12:27 Lab Scanned Report BLOOD TRANSFUSION Bedside Glucose 251 H 251 H Medications Medication Current Medications Piperacillin Sod/ Tazobactam Sod 100 ml @ 200 mls/hr Q6 IVPB Last administered on 09/14/18 12:24; Admin Dose 200 MLS/HR; Start 09/11/18 at 00:00 Vancomycin HCl (Vanco Iv Per Pharmacy) VANCOMYCIN PER PHARMACY PER PROTOCOL XX ; Start 09/10/18 at 18:30 Sodium Chloride 1,000 ml @ 50 mls/hr Q20H IV Last administered on 09/13/18 16:31; Admin Dose 50 MLS/HR; Start 09/10/18 at 18:27 IV Flush (NS 3 ml) 3 ml PER PROTOCOL IV ; Start 09/10/18 at 18:30 Ondansetron HCl (Zofran Inj) 4 mg Q6H PRN IV NAUSEA/VOMITING Last administered on 09/11/18 08:08; Admin Dose 4 MG; Start 09/10/18 at 18:30 Acetaminophen (Tylenol Tab) 650 mg Q6H PRN PO .PAIN 1-3 OR TEMP Last administered on 09/14/18 16:17; Admin Dose 650 MG; Start 09/10/18 at 18:30 Acetaminophen/ Hydrocodone Bitart ([place] (5/325)) 1 tab Q6H PRN PO .PAIN 4-6; Start 09/10/18 at 18:30 Morphine Sulfate (morphine) 2 mg Q4H PRN IV .PAIN 7-10; Start 09/10/18 at 18:30 Diagnostic Test (Pha) (Accu-Chek) 1 ea 02 XX ; Start 09/11/18 at 02:00 Insulin Aspart (Novolog Insulin Pen) NOVOLOG *MILD* ALGORITHM WITH MEALS BEDTIME SC Last administered on 09/14/18 13:07; Admin Dose 3 UNIT; Start 09/10/18 at 21:00 Hydralazine HCl (Apresoline) 10 mg Q4H PRN IV sbp >160; Start 09/10/18 at 18:30 Atorvastatin Calcium (Lipitor) 20 mg QHS PO Last administered on 09/13/18at 20:33; Admin Dose 20 MG; Start 09/10/18 at 21:00 Ferrous Sulfate (Ferrous Sulfate (Ec)) 325 mg DAILY PO Last administered on 09/14/18 09:13; Admin Dose 325 MG; Start 09/11/18 at 09:00 Metoprolol Tartrate (Lopressor) 25 mg BID PO Last administered on 09/14/18 09:14; Admin Dose 25 MG; Start 09/10/18 at 21:00 Sodium Hypochlorite (Dakin'S (Dilute )) 1 applic DAILY IRR Last administered on 09/14/18 16:34; Admin Dose 1 APPLIC; Start 09/12/18 at 09:00 Miscellaneous Information 1 ea NOTE XX ; Start 09/13/18 at 18:00 Glucose (Glutose) 15 gm Q15M PRN PO DECREASED GLUCOSE; Start 09/13/18 at 18:00 Glucose (Glutose) 22.5 gm Q15M PRN PO DECREASED GLUCOSE; Start 09/13/18 at 18:00 Dextrose (D50w Syringe) 25 ml Q15M PRN IV DECREASED GLUCOSE; Start 09/13/18 at 18:00 Dextrose (D50w Syringe) 50 ml Q15M PRN IV DECREASED GLUCOSE; Start 09/13/18 at 18:00 Glucagon (Glucagen) 1 mg Q15M PRN IM DECREASED GLUCOSE; Start 09/13/18 at 18:00 Glucose (Glutose) 15 gm Q15M PRN BUCCAL DECREASED GLUCOSE; Start 09/13/18 at 18:00 Vancomycin HCl 1.25 gm/Sodium Chloride 250 ml @ 83.333 mls/ hr Q12H IVPB Last administered on 3/3/19at 06:21; Admin Dose 83.333 MLS/HR; Start 09/14/18 at 06:00 Insulin Aspart (Novolog Insulin Pen) 4 unit WITH MEALS SC Last administered on 09/14/18at 13:06; Admin Dose 4 UNIT; Start 09/14/18 at 12:00 Insulin Glargine (Lantus) 14 units DAILY@2000 SC ; Start 09/14/18 at 20:00 Miscellaneous Information (*Rx Drug Level Order Reminder*) CONRADO TR 09/15 AT 1700 ONCE ONCE XX ; Start 09/15/18 at 17:00; Stop 09/15/18 at 17:01 TRINY TUCKER NP Sep 14, 2018 16:40
[2018-09-14 19:44] VITALS: BP 170/75; PULSE 78; RESP 18
[2018-09-14] MEDS: ATORVASTATIN 20 MG TAB PO SCH (20:24)
[2018-09-14] MEDS: INSULIN GLARGINE [LANTus] (100 UNITS/ML) SYG SC SCH (20:36)
[2018-09-15 02:00] VITALS: BP 179/88; PULSE 90; RESP 18
[2018-09-15] MEDS: ACCU-CHEK XX SCH (02:00)
[2018-09-15] MEDS: hydrALAzine 20 MG INJ IV PRN ×2 (03:20→14:51)
[2018-09-15 04:28] VITALS: BP 174/81; PULSE 113; RESP 18
[2018-09-15] MEDS: VANCOMYCIN HCL 1.25 GM in SOD CHLORIDE 0.9% 250 ML IVPB SCH ×2 (05:48→18:00)
[2018-09-15] MEDS: ACETAMINOPHEN 325 MG TAB PO PRN ×2 (05:48→20:28)
[2018-09-15 07:29] VITALS: BP 141/67; PULSE 92; RESP 16
[2018-09-15] MEDS: INSULIN ASPART [NOVOLOG] 3 ML PEN SC SCH ×7 (08:05→20:39)
[2018-09-15] MEDS: FERROUS SULFATE (EC) 325 MG TAB PO SCH (09:27)
[2018-09-15] MEDS: METOPROLOL 25 MG TAB PO SCH ×2 (09:27→20:28)
[2018-09-15] MEDS ORDERED: MAGNESIUM SULFATE 2 GM/50 ML 50 ML IVPB ONE (09:30)
[2018-09-15] MEDS: SODIUM HYPOCHLORITE (1/40) 1 APPLIC BTL IRR SCH (09:32)
--- NOTE | 2018-09-15 09:53 | PN ---
Date/Time of Note Date/Time of Note DATE: 09/15/18 TIME: 09:53 Assessment/Plan VTE Prophylaxis Risk score (from Ns)>0 risk: 3 SCD applied (from Ns): Yes Pharmacological prophylaxis: NA/contraindicated Pharm contraindication: surgical contra Lines/Catheters IV Catheter Type (from Nrs): Peripheral IV Urinary Cath still in place: No Assessment/Plan Assessment/Plan 1. Left foot wound with abscess and osteomyelitis - Patient still requesting limb salvage if possible. Podiatry on board and recommending chopart amputation which patient seems more willing to undergo - Acute on chronic left foot wound - Podiatry on board and appreciate recommendations. - arterial studies noted - MRI results noted as well 2. Sepsis secondary to above left foot wound - blood cultures negative - Wound cultures growing MRSA, strep and corynebacterium 3. Anemia, chronic disease - on iron supplements 4. Diabetes Mellitus - Insulin - ISS and accuchecks 5. Hypertension - Continue metoprolol 6. Disposition - Await recommendations from Podiatry - continue current antibiotics per ID recommendations Result Diagram: 09/15/18 0549 09/15/18 0549 Results 24hrs Laboratory Tests Test 09/14/18 12:27 09/14/18 17:38 09/14/18 20:26 09/15/18 05:49 Bedside Glucose 251 H 136 153 White Blood Count 8.1 # Red Blood Count 3.01 L Hemoglobin 9.0 L Hematocrit 26.1 L Mean Corpuscular Volume 86.7 Mean Corpuscular 29.9 Hemoglobin Mean Corpuscular 34.5 Hemoglobin Concent Red Cell Distribution 13.3 Width Platelet Count 398 Mean Platelet Volume 8.9 Immature Granulocytes % 0.400 Neutrophils % 67.9 Lymphocytes % 23.4 Monocytes % 6.3 Eosinophils % 1.5 Basophils % 0.5 Nucleated Red Blood 0.0 Cells % Immature Granulocytes # 0.030 Neutrophils # 5.5 Lymphocytes # 1.9 Monocytes # 0.5 Eosinophils # 0.1 Basophils # 0.0 Nucleated Red Blood 0.0 Cells # Sodium Level 140 Potassium Level 3.9 Chloride Level 112 H Carbon Dioxide Level 23 Anion Gap 5 Blood Urea Nitrogen 16 Creatinine 0.62 Est Glomerular Filtrat > 60 Rate mL/min Glucose Level 206 Calcium Level 8.9 Phosphorus Level 3.7 Magnesium Level 1.6 L Test 09/15/18 08:02 Bedside Glucose 217 Subjective 24 Hr Interval Summary Free Text/Dictation Patient denies any current pain and controlled with Tylenol. Still requesting salvage surgery if possible Exam/Review of Systems Exam Vitals Vital Signs Date Temp Pulse Resp B/P (MAP) Pulse Ox O2 O2 Flow FiO2 Time Delivery Rate 09/15/18 98.3 92 16 141/67 98 07:29 (91) 09/12/18 Room Air 20:22 Intake and Output 09/14/18 09/14/18 09/15/18 1515:00 23:00 07:00 IntakeIntake Total 1040 ml 730 ml 508.33 ml OutputOutput Total 600 ml 2150 ml BalanceBalance 440 ml -1420 ml 508.33 ml Exam General: Patient is laying in bed and answers questions appropriately Neck: Supple, nontender, midline Respiratory: Clear to auscultation bilaterally. no wheezing Cardiovascular: regular rate and rhythm, no obvious murmurs Gastrointestinal: soft, non-tender to palpation, bowel sounds heard. Neurological: Moves all extremities spontaneously Skin: Left foot bandaged, scar present medial aspect leg Results Results 24hrs Laboratory Tests Test 09/14/18 12:27 09/14/18 17:38 09/14/18 20:26 09/15/18 05:49 Bedside Glucose 251 H 136 153 White Blood Count 8.1 # Red Blood Count 3.01 L Hemoglobin 9.0 L Hematocrit 26.1 L Mean Corpuscular Volume 86.7 Mean Corpuscular 29.9 Hemoglobin Mean Corpuscular 34.5 Hemoglobin Concent Red Cell Distribution 13.3 Width Platelet Count 398 Mean Platelet Volume 8.9 Immature Granulocytes % 0.400 Neutrophils % 67.9 Lymphocytes % 23.4 Monocytes % 6.3 Eosinophils % 1.5 Basophils % 0.5 Nucleated Red Blood 0.0 Cells % Immature Granulocytes # 0.030 Neutrophils # 5.5 Lymphocytes # 1.9 Monocytes # 0.5 Eosinophils # 0.1 Basophils # 0.0 Nucleated Red Blood 0.0 Cells # Sodium Level 140 Potassium Level 3.9 Chloride Level 112 H Carbon Dioxide Level 23 Anion Gap 5 Blood Urea Nitrogen 16 Creatinine 0.62 Est Glomerular Filtrat > 60 Rate mL/min Glucose Level 206 Calcium Level 8.9 Phosphorus Level 3.7 Magnesium Level 1.6 L Test 09/15/18 08:02 Bedside Glucose 217 Medications Medication Current Medications Vancomycin HCl (Vanco Iv Per Pharmacy) VANCOMYCIN PER PHARMACY PER PROTOCOL XX ; Start 09/10/18 at 18:30 Sodium Chloride 1,000 ml @ 50 mls/hr Q20H IV Last administered on 09/14/18 20:28; Admin Dose 50 MLS/HR; Start 09/10/18 at 18:27 IV Flush (NS 3 ml) 3 ml PER PROTOCOL IV ; Start 09/10/18 at 18:30 Ondansetron HCl (Zofran Inj) 4 mg Q6H PRN IV NAUSEA/VOMITING Last administered on 09/11/18 08:08; Admin Dose 4 MG; Start 09/10/18 at 18:30 Acetaminophen (Tylenol Tab) 650 mg Q6H PRN PO .PAIN 1-3 OR TEMP Last administered on 09/15/18 05:48; Admin Dose 650 MG; Start 09/10/18 at 18:30 Acetaminophen/ Hydrocodone Bitart ([place] (5/325)) 1 tab Q6H PRN PO .PAIN 4-6; Start 09/10/18 at 18:30 Morphine Sulfate (morphine) 2 mg Q4H PRN IV .PAIN 7-10; Start 09/10/18 at 18:30 Diagnostic Test (Pha) (Accu-Chek) 1 ea 02 XX ; Start 09/11/18 at 02:00 Insulin Aspart (Novolog Insulin Pen) NOVOLOG *MILD* ALGORITHM WITH MEALS BEDTIME SC Last administered on 09/15/18 08:06; Admin Dose 2 UNIT; Start 09/10 at 21:00 Hydralazine HCl (Apresoline) 10 mg Q4H PRN IV sbp >160 Last administered on 09/15/18 03:20; Admin Dose 10 MG; Start 09/10/18 at 18:30 Atorvastatin Calcium (Lipitor) 20 mg QHS PO Last administered on 09/14/18 20:24; Admin Dose 20 MG; Start 09/10/18 at 21:00 Ferrous Sulfate (Ferrous Sulfate (Ec)) 325 mg DAILY PO Last administered on 09/15/18 09:27; Admin Dose 325 MG; Start 09/11/18 at 09:00 Metoprolol Tartrate (Lopressor) 25 mg BID PO Last administered on 09/15/18 09:27; Admin Dose 25 MG; Start 09/10/18 at 21:00 Sodium Hypochlorite ([place]akin'S (Dilute )) 1 applic DAILY IRR Last administered on 09/15/18 09:32; Admin Dose 1 APPLIC; Start 09/12/18 at 09:00 Miscellaneous Information 1 ea NOTE XX ; Start 09/13/18 at 18:00 Glucose (Glutose) 15 gm Q15M PRN PO DECREASED GLUCOSE; Start 09/13/18 at 18:00 Glucose (Glutose) 22.5 gm Q15M PRN PO DECREASED GLUCOSE; Start 09/13/18 at 18:00 Dextrose (D50w Syringe) 25 ml Q15M PRN IV DECREASED GLUCOSE; Start 09/13/18 at 18:00 Dextrose (D50w Syringe) 50 ml Q15M PRN IV DECREASED GLUCOSE; Start 09/13/18 at 18:00 Glucagon (Glucagen) 1 mg Q15M PRN IM DECREASED GLUCOSE; Start 09/13/18 at 18:00 Glucose (Glutose) 15 gm Q15M PRN BUCCAL DECREASED GLUCOSE; Start 09/13/18 at 18:00 Vancomycin HCl 1.25 gm/Sodium Chloride 250 ml @ 83.333 mls/ hr Q12H IVPB Last administered on 09/15/18 05:48; Admin Dose 83.333 MLS/HR; Start 09/14/18 at 06:00 Insulin Aspart (Novolog Insulin Pen) 4 unit WITH MEALS SC Last administered on 09/15/18 08:05; Admin Dose 4 UNIT; Start 09/14/18 at 12:00 Insulin Glargine (Lantus) 14 units DAILY@2000 SC Last administered on 09/14/18at 20:36; Admin Dose 14 UNITS; Start 09/14/18 at 20:00 Miscellaneous Information (*Rx Drug Level Order Reminder*) VANCO TR 09/15 AT 1700 ONCE ONCE XX ; Start 09/15/18 at 17:00; Stop 09/15/18 at 17:01 Magnesium Sulfate 50 ml @ 25 mls/hr ONCE ONCE IVPB Last administered on 09/15/18 09:28; Admin Dose 25 MLS/HR; Start 09/15/18 at 09:30; Stop 09/15/18 at 11:29 ANTONIO VITAL MD Sep 15, 2018 09:53
--- NOTE | 2018-09-15 10:54 | CONS ---
Assessment/Plan Assessment/Plan Hospital Course (Demo Recall) All noted, no acute events over night, no fevers BUN 16 creatinine 0.62 Antimicrobials: Vanco Chest x-ray revealed no acute disease. Arterial study of left lower extremity showed inflow disease due to upstream stenosis Microbiology: Left ankle wound culture growing Corynebacterium, strep pyogenous and MRSA Vanco trough yesterday 9.1, BUN 9 creatinine 0.69 PHYSICAL EXAMINATION: GENERAL: This is a well-developed middle-aged woman who is in no distress. HEENT: Head is atraumatic, normocephalic. NECK: Supple. CHEST: Rise symmetrical. Breath sounds diminished to bases. HEART: S1, S2. ABDOMEN: Soft. Bowel tones present. EXTREMITIES: Left lower extremity dressing intact ASSESSMENT: 1. S/p sepsis secondary to #2 2. Left foot cellulitis, abscess, osteomyelitis, status post multiple incision and drainage/ skin graft 3. Diabetes 4. Diabetic neuropathy/PAD. 5. Anemia. PLAN: Stable, continue vancomycin, monitor renal f-n, follow podiatry recommendations, patient needs amputation Consultation Date/Type/Reason Admit Date/Time Sep 10, 2018 at 18:26 Initial Consult Date Type of Consult id Date/Time of Note DATE: 09/15/18 TIME: 10:53 Exam/Review of Systems Exam Vitals Vital Signs Date Temp Pulse Resp B/P (MAP) Pulse Ox O2 O2 Flow FiO2 Time Delivery Rate 09/15/18 98.3 92 16 141/67 98 07:29 (91) 09/12/18 Room Air 20:22 Intake and Output 09/14/18 09/14/18 09/15/18 1515:00 23:00 07:00 IntakeIntake Total 1040 ml 730 ml 508.33 ml OutputOutput Total 600 ml 2150 ml BalanceBalance 440 ml -1420 ml 508.33 ml Results Result Diagram: 09/15/18 0549 09/15/18 0549 Results 24hrs Laboratory Tests Test 09/14/18 12:27 09/14/18 17:38 09/14/18 20:26 09/15/18 05:49 Bedside Glucose 251 H 136 153 White Blood Count 8.1 # Red Blood Count 3.01 L Hemoglobin 9.0 L Hematocrit 26.1 L Mean Corpuscular Volume 86.7 Mean Corpuscular 29.9 Hemoglobin Mean Corpuscular 34.5 Hemoglobin Concent Red Cell Distribution 13.3 Width Platelet Count 398 Mean Platelet Volume 8.9 Immature Granulocytes % 0.400 Neutrophils % 67.9 Lymphocytes % 23.4 Monocytes % 6.3 Eosinophils % 1.5 Basophils % 0.5 Nucleated Red Blood 0.0 Cells % Immature Granulocytes # 0.030 Neutrophils # 5.5 Lymphocytes # 1.9 Monocytes # 0.5 Eosinophils # 0.1 Basophils # 0.0 Nucleated Red Blood 0.0 Cells # Sodium Level 140 Potassium Level 3.9 Chloride Level 112 H Carbon Dioxide Level 23 Anion Gap 5 Blood Urea Nitrogen 16 Creatinine 0.62 Est Glomerular Filtrat > 60 Rate mL/min Glucose Level 206 Calcium Level 8.9 Phosphorus Level 3.7 Magnesium Level 1.6 L Test 09/15/18 08:02 Bedside Glucose 217 Medications Medication Current Medications Vancomycin HCl (Vanco Iv Per Pharmacy) VANCOMYCIN PER PHARMACY PER PROTOCOL XX ; Start 09/10/18 at 18:30 Sodium Chloride 1,000 ml @ 50 mls/hr Q20H IV Last administered on 09/14/18at 20:28; Admin Dose 50 MLS/HR; Start 09/10/18 at 18:27 IV Flush (NS 3 ml) 3 ml PER PROTOCOL IV ; Start 09/10/18 at 18:30 Ondansetron HCl (Zofran Inj) 4 mg Q6H PRN IV NAUSEA/VOMITING Last administered on 09/11/18at 08:08; Admin Dose 4 MG; Start 09/10/18 at 18:30 Acetaminophen (Tylenol Tab) 650 mg Q6H PRN PO .PAIN 1-3 OR TEMP Last administered on 09/15/18at 05:48; Admin Dose 650 MG; Start 09/10/18 at 18:30 Acetaminophen/ Hydrocodone Bitart ([place] (5/325)) 1 tab Q6H PRN PO .PAIN 4-6; Start 09/10/18 at 18:30 Morphine Sulfate (morphine) 2 mg Q4H PRN IV .PAIN 7-10; Start 09/10/18 at 18:30 Diagnostic Test (Pha) (Accu-Chek) 1 ea 02 XX ; Start 09/11/18 at 02:00 Insulin Aspart (Novolog Insulin Pen) NOVOLOG *MILD* ALGORITHM WITH MEALS BEDTIME SC Last administered on 09/15/18 08:06; Admin Dose 2 UNIT; Start 08/16 01/30 at 21:00 Hydralazine HCl (Apresoline) 10 mg Q4H PRN IV sbp >160 Last administered on 09/15/18 03:20; Admin Dose 10 MG; Start 09/10/18 at 18:30 Atorvastatin Calcium (Lipitor) 20 mg QHS PO Last administered on 09/14/18 20:24; Admin Dose 20 MG; Start 09/10/18 at 21:00 Ferrous Sulfate (Ferrous Sulfate (Ec)) 325 mg DAILY PO Last administered on 09/15/18 09:27; Admin Dose 325 MG; Start 09/11/18 at 09:00 Metoprolol Tartrate (Lopressor) 25 mg BID PO Last administered on 09/15/18 09:27; Admin Dose 25 MG; Start 09/10/18 at 21:00 Sodium Hypochlorite (Dakin'S (Dilute )) 1 applic DAILY IRR Last administered on 09/15/18 09:32; Admin Dose 1 APPLIC; Start 09/12/18 at 09:00 Miscellaneous Information 1 ea NOTE XX ; Start 09/13/18 at 18:00 Glucose (Glutose) 15 gm Q15M PRN PO DECREASED GLUCOSE; Start 09/13/18 at 18:00 Glucose (Glutose) 22.5 gm Q15M PRN PO DECREASED GLUCOSE; Start 09/13/18 at 18:00 Dextrose (D50w Syringe) 25 ml Q15M PRN IV DECREASED GLUCOSE; Start 09/13/18 at 18:00 Dextrose (D50w Syringe) 50 ml Q15M PRN IV DECREASED GLUCOSE; Start 09/13/18 at 18:00 Glucagon (Glucagen) 1 mg Q15M PRN IM DECREASED GLUCOSE; Start 09/13/18 at 18:00 Glucose (Glutose) 15 gm Q15M PRN BUCCAL DECREASED GLUCOSE; Start 09/13/18 at 18:00 Vancomycin HCl 1.25 gm/Sodium Chloride 250 ml @ 83.333 mls/ hr Q12H IVPB Last administered on 09/15/18 05:48; Admin Dose 83.333 MLS/HR; Start 09/14/18 at 06:00 Insulin Aspart (Novolog Insulin Pen) 4 unit WITH MEALS SC Last administered on 3/4/19at 08:05; Admin Dose 4 UNIT; Start 09/14/18 at 12:00 Insulin Glargine (Lantus) 14 units DAILY@2000 SC Last administered on 09/14/18at 20:36; Admin Dose 14 UNITS; Start 09/14/18 at 20:00 Miscellaneous Information (*Rx Drug Level Order Reminder*) VANCO TR 09/15 AT 1700 ONCE ONCE XX ; Start 09/15/18 at 17:00; Stop 09/15/18 at 17:01 Magnesium Sulfate 50 ml @ 25 mls/hr ONCE ONCE IVPB Last administered on 09/15/18at 09:28; Admin Dose 25 MLS/HR; Start 09/15/18 at 09:30; Stop 09/15/18 at 11:29 TRINY TUCKER NP Sep 15, 2018 10:54
[2018-09-15 14:41] VITALS: BP 173/91; PULSE 95; RESP 20
[2018-09-15] MEDS ORDERED: morphine LIQ (10 MG/5 ML) CUP PO PRN (15:00)
[2018-09-15] MEDS: SOD CHLORIDE 0.9% 1,000 ML IV SCH ×2 (18:27→20:25)
[2018-09-15 19:57] VITALS: BP 171/81; PULSE 114; RESP 18
--- NOTE | 2018-09-15 20:06 | PN ---
Date/Time of Note Date/Time of Note DATE: 09/15/18 TIME: 20:05 Assessment/Plan VTE Prophylaxis Risk score (from Ns)>0 risk: 5 SCD applied (from Ns): Yes Pharmacological prophylaxis: other Lines/Catheters [facility] IV Urinary Cath still in place: No Assessment/Plan Assessment/Plan Left foot diabetic ulcer Left foot cellulitis Left foot abscess Left foot osteomyelitis Left lower extremity failed graft site DM2 with peripheral neuropathy PAD Plan Patient had adamantly refused a below knee amputation. It was discussed with the patient that there is poor prognosis. Patient is very likely to have a chopart amputation which may be her best option in terms of limb salvage. Her midfoot has displayed instability with limited dorsiflexion and there is absent dorsiflexion and plantar flexion to the digits. Patient wanted time to think about her options before making a final decisions. MRI was reviewed and there is signs of osteomyelitis to the midfoot and to digits. Wound cultures showing mixed organism growth. Continue with daily dressing changes. Offload heels with pillows. Patient has still not made a final decision regarding the surgical procedure. We also discussed that due to infection flap coverage opt ions would be contraindicated. The concern also is if the flap coverage procedures fail it puts her at risk for an unsuccessful BKA alternative option. Result Diagram: 09/15/18 0549 09/15/18 0549 Results 24hrs Laboratory Tests Test 09/14/18 20:26 09/15/18 05:49 09/15/18 08:02 09/15/18 13:23 Bedside Glucose 153 217 212 White Blood Count 8.1 # Red Blood Count 3.01 L Hemoglobin 9.0 L Hematocrit 26.1 L Mean Corpuscular Volume 86.7 Mean Corpuscular 29.9 Hemoglobin Mean Corpuscular 34.5 Hemoglobin Concent Red Cell Distribution 13.3 Width Platelet Count 398 Mean Platelet Volume 8.9 Immature Granulocytes % 0.400 Neutrophils % 67.9 Lymphocytes % 23.4 Monocytes % 6.3 Eosinophils % 1.5 Basophils % 0.5 Nucleated Red Blood 0.0 Cells % Immature Granulocytes # 0.030 Neutrophils # 5.5 Lymphocytes # 1.9 Monocytes # 0.5 Eosinophils # 0.1 Basophils # 0.0 Nucleated Red Blood 0.0 Cells # Sodium Level 140 Potassium Level 3.9 Chloride Level 112 H Carbon Dioxide Level 23 Anion Gap 5 Blood Urea Nitrogen 16 Creatinine 0.62 Est Glomerular Filtrat > 60 Rate mL/min Glucose Level 206 Calcium Level 8.9 Phosphorus Level 3.7 Magnesium Level 1.6 L Test 09/15/18 17:09 09/15/18 17:41 Vancomycin Level Trough 22.8 *H Bedside Glucose 176 Subjective 24 Hr Interval Summary Free Text/Dictation No acute events overnight Exam/Review of Systems Exam Vitals Vital Signs Date Temp Pulse Resp B/P (MAP) Pulse Ox O2 O2 Flow FiO2 Time Delivery Rate 09/15/18 97.9 95 20 173/91 99 14:41 (118) 09/12/18 Room Air 20:22 Intake and Output 09/14/18 09/14/18 09/15/18 1515:00 23:00 07:00 IntakeIntake Total 1040 ml 730 ml 508.33 ml OutputOutput Total 600 ml 2150 ml BalanceBalance 440 ml -1420 ml 508.33 ml Exam Left foot medial and plantar ulceration 10 x 8 x 2.0cm there is bone, tendon muscle exposed. Wound tunnels into the central compartment of the foot ~2-3cm. Wound base mixed granular and fibrotic with focal areas of necrosis noted. Left foot multiple dorsal ulceration sites at previous skin graft site 5 x 5cm granular wound base no tunneling appreciated. Left foot lateral ulceration site 2 x 2 x 0.8cm ulceration with mild granulation tissue formation and bone exposed Absent protective sensations Left 2nd digit with gangrene formation Left plantar hallux ulcer with fibronecrotic wound base 3 x 3 x 0.6cm purulence appreciated Left 1st dorsal interspace ulceration 4 x 4 x 1.5cm which communicates with the plantar ulceration site. Purulence is expressed approximately 1-2mL Unable to dorsiflex digits Weak ankle dorsiflexion Foot X-ray IMPRESSION: 1. Large plantar medial midfoot soft tissue defect with gas extending to the level of the second MTP joint. 2. Well-defined defect in the medial base of the first metatarsal and medial cuneiform likely postsurgical. Medial base of the first metatarsal margin appears smooth. Cortical indistinctness of the medial margin of the medial cuneiform. Correlate for date of surgery. Findings are concerning for osteomyelitis. 3. Interval widening of the second MTP joint space with irregularity of the lateral base of the second proximal phalanx, as well as widening of the second PIP joint space with irregularity of the head of the second proximal phalanx likely representing joint effusions, suspicious for septic arthritis and osteomyelitis. Marked soft tissue swelling in the second digit and forefoot. 4. Severe diffuse osteopenia. 5. Recommend MRI for further evaluation. Non invasive arterial studies IMPRESSION: Patent left lower extremity arteries. Monophasic waveforms from the left popliteal artery distally. This is suggestive of inflow disease due to upstream stenosis. MRI Foot IMPRESSION: 1. Bone marrow edema and bone destructive changes in the midfoot as described. Findings are likely a neuropathic joint/Charcot joint related and could also represent polyostotic osteomyelitis. 2. Soft tissue air consistent with a clinical impression of gangrene. 3. No abscess is seen. MRI Ankle IMPRESSION: 1. Findings in the bones of the hind foot suggesting reactive edema. No bone destructive changes to confirm osteomyelitis. 2. Destructive changes of the bones of the midfoot consistent with Charcot changes versus polyostotic osteomyelitis. 3. No evidence for soft tissue air in the ankle to suggest gangrene. 4. No abscess identified in the ankle region. Results Results 24hrs Laboratory Tests Test 09/14/18 20:26 09/15/18 05:49 09/15/18 08:02 09/15/18 13:23 Bedside Glucose 153 217 212 White Blood Count 8.1 # Red Blood Count 3.01 L Hemoglobin 9.0 L Hematocrit 26.1 L Mean Corpuscular Volume 86.7 Mean Corpuscular 29.9 Hemoglobin Mean Corpuscular 34.5 Hemoglobin Concent Red Cell Distribution 13.3 Width Platelet Count 398 Mean Platelet Volume 8.9 Immature Granulocytes % 0.400 Neutrophils % 67.9 Lymphocytes % 23.4 Monocytes % 6.3 Eosinophils % 1.5 Basophils % 0.5 Nucleated Red Blood 0.0 Cells % Immature Granulocytes # 0.030 Neutrophils # 5.5 Lymphocytes # 1.9 Monocytes # 0.5 Eosinophils # 0.1 Basophils # 0.0 Nucleated Red Blood 0.0 Cells # Sodium Level 140 Potassium Level 3.9 Chloride Level 112 H Carbon Dioxide Level 23 Anion Gap 5 Blood Urea Nitrogen 16 Creatinine 0.62 Est Glomerular Filtrat > 60 Rate mL/min Glucose Level 206 Calcium Level 8.9 Phosphorus Level 3.7 Magnesium Level 1.6 L Test 09/15/18 17:09 09/15/18 17:41 Vancomycin Level Trough 22.8 *H Bedside Glucose 176 Medications Medication Current Medications Vancomycin HCl (Vanco Iv Per Pharmacy) VANCOMYCIN PER PHARMACY PER PROTOCOL XX ; Start 09/10/18 at 18:30 Sodium Chloride 1,000 ml @ 50 mls/hr Q20H IV Last administered on 09/14/18 20:28; Admin Dose 50 MLS/HR; Start 09/10/18 at 18:27 IV Flush (NS 3 ml) 3 ml PER PROTOCOL IV ; Start 09/10/18 at 18:30 Ondansetron HCl (Zofran Inj) 4 mg Q6H PRN IV NAUSEA/VOMITING Last administered on 09/11/18 08:08; Admin Dose 4 MG; Start 09/10/18 at 18:30 Acetaminophen (Tylenol Tab) 650 mg Q6H PRN PO .PAIN 1-3 OR TEMP Last administered on 09/15/18 05:48; Admin Dose 650 MG; Start 09/10/18 at 18:30 Acetaminophen/ Hydrocodone Bitart ([place] (5/325)) 1 tab Q6H PRN PO .PAIN 4-6; Start 09/10/18 at 18:30 Diagnostic Test (Pha) (Accu-Chek) 1 ea 02 XX ; Start 09/11/18 at 02:00 Insulin Aspart (Novolog Insulin Pen) NOVOLOG *MILD* ALGORITHM WITH MEALS BEDTIME SC Last administered on 09/15/18 17:46; Admin Dose 1 UNIT; Start 09/10/18 at 21:00 Hydralazine HCl (Apresoline) 10 mg Q4H PRN IV sbp >160 Last administered on 09/15/18 14:51; Admin Dose 10 MG; Start 09/10/18 at 18:30 Atorvastatin Calcium (Lipitor) 20 mg QHS PO Last administered on 09/14/18 20:24; Admin Dose 20 MG; Start 09/10/18 at 21:00 Ferrous Sulfate (Ferrous Sulfate (Ec)) 325 mg DAILY PO Last administered on 09/15/18 09:27; Admin Dose 325 MG; Start 09/11/18 at 09:00 Metoprolol Tartrate (Lopressor) 25 mg BID PO Last administered on 09/15/18 09:27; Admin Dose 25 MG; Start 09/10/18 at 21:00 Sodium Hypochlorite (Dakin'S (Dilute )) 1 applic DAILY IRR Last administered on 09/15/18 09:32; Admin Dose 1 APPLIC; Start 09/12/18 at 09:00 Miscellaneous Information 1 ea NOTE XX ; Start 09/13/18 at 18:00 Glucose (Glutose) 15 gm Q15M PRN PO DECREASED GLUCOSE; Start 09/13/18 at 18:00 Glucose (Glutose) 22.5 gm Q15M PRN PO DECREASED GLUCOSE; Start 09/13/18 at 18:00 Dextrose (D50w Syringe) 25 ml Q15M PRN IV DECREASED GLUCOSE; Start 09/13/18 at 18:00 Dextrose (D50w Syringe) 50 ml Q15M PRN IV DECREASED GLUCOSE; Start 09/13/18 at 18:00 Glucagon (Glucagen) 1 mg Q15M PRN IM DECREASED GLUCOSE; Start 09/13/18 at 18:00 Glucose (Glutose) 15 gm Q15M PRN BUCCAL DECREASED GLUCOSE; Start 09/13/18 at 18:00 Vancomycin HCl 1.25 gm/Sodium Chloride 250 ml @ 83.333 mls/ hr Q12H IVPB Last administered on 09/15/18 05:48; Admin Dose 83.333 MLS/HR; Start 09/14/18 at 06:00 Insulin Aspart (Novolog Insulin Pen) 4 unit WITH MEALS SC Last administered on 09/15/18 17:45; Admin Dose 4 UNIT; Start 09/14/18 at 12:00 Insulin Glargine (Lantus) 14 units DAILY@2000 SC Last administered on 09/14/18at 20:36; Admin Dose 14 UNITS; Start 09/14/18 at 20:00 Morphine Sulfate (morphine) 6 mg Q4H PRN PO SEVERE PAIN LEVEL 7-10; Start 09/15/18 at 15:00 WALTER TIM DPM Sep 15, 2018 20:06
[2018-09-15] MEDS: ATORVASTATIN 20 MG TAB PO SCH (20:26)
[2018-09-15] MEDS: INSULIN GLARGINE [LANTus] (100 UNITS/ML) SYG SC SCH (20:39)
[2018-09-15 23:00] VITALS: BP 140/70; PULSE 87
[2018-09-15] MEDS: VANCOMYCIN 750 MG (PMX) 250 ML IVPB SCH (23:55)
[2018-09-16] VITALS (7 sets, daily range): BP systolic 149–186; BP diastolic 68–94; PULSE 81–105; RESP 16–18
[2018-09-16] MEDS: ACCU-CHEK XX SCH (02:00)
[2018-09-16] MEDS: INSULIN ASPART [NOVOLOG] 3 ML PEN SC SCH ×7 (08:00→20:33)
--- NOTE | 2018-09-16 08:50 | PN ---
Date/Time of Note Date/Time of Note DATE: 09/16/18 TIME: 08:50 Assessment/Plan VTE Prophylaxis Risk score (from Ns)>0 risk: 3 SCD applied (from Ns): Yes Pharmacological prophylaxis: NA/contraindicated Pharm contraindication: surgical contra Lines/Catheters IV Catheter Type (from Nrs): Peripheral IV Urinary Cath still in place: No Assessment/Plan Assessment/Plan 1. Left foot wound with abscess and osteomyelitis - Podiatry on board and recommending chopart amputation which patient seems more willing to undergo - Acute on chronic left foot wound - Podiatry on board and appreciate recommendations. - arterial studies noted - MRI results noted as well - Wound cultures noted and ID on board for antibiotics management 2. Sepsis secondary to above left foot wound - blood cultures negative - Wound cultures growing MRSA, strep and corynebacterium 3. Anemia, chronic disease - on iron supplements 4. Diabetes Mellitus - Insulin - ISS and accuchecks 5. Hypertension - Continue metoprolol 6. Disposition - Await recommendations from Podiatry - continue current antibiotics per ID recommendations Result Diagram: 09/16/18 0437 09/16/18 0437 Results 24hrs Laboratory Tests Test 09/15/18 13:23 09/15/18 17:09 09/15/18 17:41 09/15/18 20:29 Bedside Glucose 212 176 181 Vancomycin Level Trough 22.8 *H Test 09/16/18 02:28 09/16/18 04:37 Bedside Glucose 191 White Blood Count 8.4 Red Blood Count 2.91 L Hemoglobin 8.5 L Hematocrit 25.3 L Mean Corpuscular Volume 86.9 Mean Corpuscular 29.2 Hemoglobin Mean Corpuscular 33.6 Hemoglobin Concent Red Cell Distribution 13.4 Width Platelet Count 382 Mean Platelet Volume 8.9 Immature Granulocytes % 0.500 H Neutrophils % 68.8 Lymphocytes % 23.8 Monocytes % 5.1 Eosinophils % 1.6 Basophils % 0.2 Nucleated Red Blood 0.0 Cells % Immature Granulocytes # 0.040 H Neutrophils # 5.8 Lymphocytes # 2.0 Monocytes # 0.4 Eosinophils # 0.1 Basophils # 0.0 Nucleated Red Blood 0.0 Cells # Sodium Level 139 Potassium Level 3.7 Chloride Level 111 H Carbon Dioxide Level 21 Anion Gap 7 Blood Urea Nitrogen 24 H Creatinine 0.76 Glucose Level 153 Calcium Level 8.8 Phosphorus Level 4.6 Magnesium Level 2.0 Albumin 2.4 L Subjective 24 Hr Interval Summary Free Text/Dictation Patient denies any pain. Discussed again possible amputation of foot and pat ient seems to be considering as long as leg is salvaged. Exam/Review of Systems Exam Vitals Vital Signs Date Temp Pulse Resp B/P (MAP) Pulse Ox O2 O2 Flow FiO2 Time Delivery Rate 09/16/18 98.4 89 18 178/79 99 07:18 (112) 09/12/18 Room Air 20:22 Intake and Output 09/15/18 09/15/18 09/16/18 1515:00 23:00 07:00 IntakeIntake Total 1060 ml 1055 ml 1025 ml OutputOutput Total 2900 ml 1500 ml BalanceBalance -1840 ml -445 ml 1025 ml Exam General: Patient is laying in bed and answers questions appropriately Neck: Supple, nontender, midline Respiratory: Clear to auscultation bilaterally. no wheezing Cardiovascular: regular rate and rhythm, no obvious murmurs Gastrointestinal: soft, non-tender to palpation, bowel sounds heard. Neurological: Moves all extremities spontaneously Skin: Left foot bandaged, no discharge or drainage Results Results 24hrs Laboratory Tests Test 09/15/18 13:23 09/15/18 17:09 09/15/18 17:41 09/15/18 20:29 Bedside Glucose 212 176 181 Vancomycin Level Trough 22.8 *H Test 09/16/18 02:28 09/16/18 04:37 Bedside Glucose 191 White Blood Count 8.4 Red Blood Count 2.91 L Hemoglobin 8.5 L Hematocrit 25.3 L Mean Corpuscular Volume 86.9 Mean Corpuscular 29.2 Hemoglobin Mean Corpuscular 33.6 Hemoglobin Concent Red Cell Distribution 13.4 Width Platelet Count 382 Mean Platelet Volume 8.9 Immature Granulocytes % 0.500 H Neutrophils % 68.8 Lymphocytes % 23.8 Monocytes % 5.1 Eosinophils % 1.6 Basophils % 0.2 Nucleated Red Blood 0.0 Cells % Immature Granulocytes # 0.040 H Neutrophils # 5.8 Lymphocytes # 2.0 Monocytes # 0.4 Eosinophils # 0.1 Basophils # 0.0 Nucleated Red Blood 0.0 Cells # Sodium Level 139 Potassium Level 3.7 Chloride Level 111 H Carbon Dioxide Level 21 Anion Gap 7 Blood Urea Nitrogen 24 H Creatinine 0.76 Glucose Level 153 Calcium Level 8.8 Phosphorus Level 4.6 Magnesium Level 2.0 Albumin 2.4 L Medications Medication Current Medications Vancomycin HCl (Vanco Iv Per Pharmacy) VANCOMYCIN PER PHARMACY PER PROTOCOL XX ; Start 09/10/18 at 18:30 Sodium Chloride 1,000 ml @ 50 mls/hr Q20H IV Last administered on 09/15/18 20:25; Admin Dose 50 MLS/HR; Start 09/10/18 at 18:27 IV Flush (NS 3 ml) 3 ml PER PROTOCOL IV ; Start 09/10/18 at 18:30 Ondansetron HCl (Zofran Inj) 4 mg Q6H PRN IV NAUSEA/VOMITING Last administered on 09/11/18 08:08; Admin Dose 4 MG; Start 09/10/18 at 18:30 Acetaminophen (Tylenol Tab) 650 mg Q6H PRN PO .PAIN 1-3 OR TEMP Last admini stered on 09/15/18 20:28; Admin Dose 650 MG; Start 09/10/18 at 18:30 Acetaminophen/ Hydrocodone Bitart ([place] (5/325)) 1 tab Q6H PRN PO .PAIN 4-6; Start 09/10/18 at 18:30 Diagnostic Test (Pha) (Accu-Chek) 1 ea 02 XX ; Start 09/11/18 at 02:00 Insulin Aspart (Novolog Insulin Pen) NOVOLOG *MILD* ALGORITHM WITH MEALS BEDTIME SC Last administered on 09/15/18 20:39; Admin Dose 1 UNIT; Start 09/10/18 at 21:00 Hydralazine HCl (Apresoline) 10 mg Q4H PRN IV sbp >160 Last administered on 09/15/18 14:51; Admin Dose 10 MG; Start 09/10/18 at 18:30 Atorvastatin Calcium (Lipitor) 20 mg QHS PO Last administered on 09/15/18 20:26; Admin Dose 20 MG; Start 09/10/18 at 21:00 Ferrous Sulfate (Ferrous Sulfate (Ec)) 325 mg DAILY PO Last administered on 09/15/18 09:27; Admin Dose 325 MG; Start 09/11/18 at 09:00 Metoprolol Tartrate (Lopressor) 25 mg BID PO Last administered on 09/15/18 20:28; Admin Dose 25 MG; Start 09/10/18 at 21:00 Sodium Hypochlorite ([place]akin[place] (Dilute )) 1 applic DAILY IRR Last ad ministered on 09/15/18at 09:32; Admin Dose 1 APPLIC; Start 09/12/18 at 09:00 Miscellaneous Information 1 ea NOTE XX ; Start 09/13/18 at 18:00 Glucose (Glutose) 15 gm Q15M PRN PO DECREASED GLUCOSE; Start 09/13/18 at 18:00 Glucose (Glutose) 22.5 gm Q15M PRN PO DECREASED GLUCOSE; Start 09/13/18 at 18:00 Dextrose (D50w Syringe) 25 ml Q15M PRN IV DECREASED GLUCOSE; Start 09/13/18 at 18:00 Dextrose (D50w Syringe) 50 ml Q15M PRN IV DECREASED GLUCOSE; Start 09/13/18 at 18:00 Glucagon (Glucagen) 1 mg Q15M PRN IM DECREASED GLUCOSE; Start 09/13/18 at 18:00 Glucose (Glutose) 15 gm Q15M PRN BUCCAL DECREASED GLUCOSE; Start 09/13/18 at 18:00 Insulin Aspart (Novolog Insulin Pen) 4 unit WITH MEALS SC Last administered on 09/15/18at 17:45; Admin Dose 4 UNIT; Start 09/14/18 at 12:00 Insulin Glargine (Lantus) 14 units DAILY@2000 SC Last administered on 09/15/18at 20:39; Admin Dose 14 UNITS; Start 09/14/18 at 20:00 Morphine Sulfate (morphine) 6 mg Q4H PRN PO SEVERE PAIN LEVEL 7-10; Start 09/15/18 at 15:00 Vancomycin/Sodium Chloride 250 ml @ 125 mls/hr Q12H IVPB Last administered on 09/15/18at 23:55; Admin Dose 125 MLS/HR; Start 09/15/18 at 23:00 ANTONIO VITAL MD Sep 16, 2018 08:50
[2018-09-16] MEDS: METOPROLOL 25 MG TAB PO SCH (09:03)
[2018-09-16] MEDS: FERROUS SULFATE (EC) 325 MG TAB PO SCH (09:03)
[2018-09-16] MEDS: SODIUM HYPOCHLORITE (1/40) 1 APPLIC BTL IRR SCH (09:04)
--- NOTE | 2018-09-16 10:55 | CONS ---
Assessment/Plan Assessment/Plan Hospital Course (Demo Recall) All noted, no acute events over night, looks comfortable no fevers Antimicrobials: Vanco Chest x-ray revealed no acute disease. Arterial study of left lower extremity showed inflow disease due to upstream stenosis Microbiology: Left ankle wound culture growing Corynebacterium, strep pyogenous and MRSA PHYSICAL EXAMINATION: GENERAL: This is a well-developed middle-aged woman who is in no distress. HEENT: Head is atraumatic, normocephalic. NECK: Supple. CHEST: Rise symmetrical. Breath sounds diminished to bases. HEART: S1, S2. ABDOMEN: Soft. Bowel tones present. EXTREMITIES: Left lower extremity dressing intact ASSESSMENT: 1. S/p sepsis secondary to #2 2. Left foot cellulitis, abscess, osteomyelitis, status post multiple incision and drainage/ skin graft 3. Diabetes 4. Diabetic neuropathy/PAD. 5. Anemia. PLAN: Remains unchanged, continue vancomycin, monitor renal f-n, follow podiatry recommendations==> needs BKA, pt refusing Consultation Date/Type/Reason Admit Date/Time Sep 10, 2018 at 18:26 Initial Consult Date Type of Consult id Date/Time of Note DATE: 09/16/18 TIME: 10:54 Exam/Review of Systems Exam Vitals Vital Signs Date Temp Pulse Resp B/P (MAP) Pulse Ox O2 O2 Flow FiO2 Time Delivery Rate 09/16/18 98.4 89 18 178/79 99 07:18 (112) 09/12/18 Room Air 20:22 Intake and Output 09/15/18 09/15/18 09/16/18 1515:00 23:00 07:00 IntakeIntake Total 1060 ml 1055 ml 1025 ml OutputOutput Total 2900 ml 1500 ml BalanceBalance -1840 ml -445 ml 1025 ml Results Result Diagram: 09/16/18 0437 09/16/18 0437 Results 24hrs Laboratory Tests Test 09/15/18 13:23 09/15/18 17:09 09/15/18 17:41 09/15/18 20:29 Bedside Glucose 212 176 181 Vancomycin Level Trough 22.8 *H Test 09/16/18 02:28 09/16/18 04:37 09/16/18 09:02 Bedside Glucose 191 135 White Blood Count 8.4 Red Blood Count 2.91 L Hemoglobin 8.5 L Hematocrit 25.3 L Mean Corpuscular Volume 86.9 Mean Corpuscular 29.2 Hemoglobin Mean Corpuscular 33.6 Hemoglobin Concent Red Cell Distribution 13.4 Width Platelet Count 382 Mean Platelet Volume 8.9 Immature Granulocytes % 0.500 H Neutrophils % 68.8 Lymphocytes % 23.8 Monocytes % 5.1 Eosinophils % 1.6 Basophils % 0.2 Nucleated Red Blood 0.0 Cells % Immature Granulocytes # 0.040 H Neutrophils # 5.8 Lymphocytes # 2.0 Monocytes # 0.4 Eosinophils # 0.1 Basophils # 0.0 Nucleated Red Blood 0.0 Cells # Sodium Level 139 Potassium Level 3.7 Chloride Level 111 H Carbon Dioxide Level 21 Anion Gap 7 Blood Urea Nitrogen 24 H Creatinine 0.76 Glucose Level 153 Calcium Level 8.8 Phosphorus Level 4.6 Magnesium Level 2.0 Albumin 2.4 L Medications Medication Current Medications Vancomycin HCl (Vanco Iv Per Pharmacy) VANCOMYCIN PER PHARMACY PER PROTOCOL XX ; Start 09/10/18 at 18:30 Sodium Chloride 1,000 ml @ 50 mls/hr Q20H IV Last administered on 09/15/18at 20:25; Admin Dose 50 MLS/HR; Start 09/10/18 at 18:27 IV Flush (NS 3 ml) 3 ml PER PROTOCOL IV ; Start 09/10/18 at 18:30 Ondansetron HCl (Zofran Inj) 4 mg Q6H PRN IV NAUSEA/VOMITING Last administered on 09/11/18at 08:08; Admin Dose 4 MG; Start 09/10/18 at 18:30 Acetaminophen (Tylenol Tab) 650 mg Q6H PRN PO .PAIN 1-3 OR TEMP Last administered on 09/15/18at 20:28; Admin Dose 650 MG; Start 09/10/18 at 18:30 Acetaminophen/ Hydrocodone Bitart ([place] (5/325)) 1 tab Q6H PRN PO .PAIN 4-6; Start 09/10/18 at 18:30 Diagnostic Test (Pha) (Accu-Chek) 1 XX ; Start 09/11/18 at 02:00 Insulin Aspart (Novolog Insulin Pen) NOVOLOG *MILD* ALGORITHM WITH MEALS BEDTIME SC Last administered on 09/15/18 20:39; Admin Dose 1 UNIT; Start 09/10/18 at 21:00 Hydralazine HCl (Apresoline) 10 mg Q4H PRN IV sbp >160 Last administered on 09/15/18 14:51; Admin Dose 10 MG; Start 09/10/18 at 18:30 Atorvastatin Calcium (Lipitor) 20 mg QHS PO Last administered on 09/15/18 20:26; Admin Dose 20 MG; Start 09/10/18 at 21:00 Ferrous Sulfate (Ferrous Sulfate (Ec)) 325 mg DAILY PO Last administered on 09/16/18 09:03; Admin Dose 325 MG; Start 09/11/18 at 09:00 Metoprolol Tartrate (Lopressor) 25 mg BID PO Last administered on 09/16/18 09:03; Admin Dose 25 MG; Start 09/10/18 at 21:00 Sodium Hypochlorite (Dakin'S (Dilute )) 1 applic DAILY IRR Last administered on 09/16/18 09:04; Admin Dose 1 APPLIC; Start 09/12/18 at 09:00 Miscellaneous Information 1 ea NOTE XX ; Start 09/13/18 at 18:00 Glucose (Glutose) 15 gm Q15M PRN PO DECREASED GLUCOSE; Start 09/13/18 at 18:00 Glucose (Glutose) 22.5 gm Q15M PRN PO DECREASED GLUCOSE; Start 09/13/18 at 18:00 Dextrose (D50w Syringe) 25 ml Q15M PRN IV DECREASED GLUCOSE; Start 09/13/18 at 18:00 Dextrose (D50w Syringe) 50 ml Q15M PRN IV DECREASED GLUCOSE; Start 09/13/18 at 18:00 Glucagon (Glucagen) 1 mg Q15M PRN IM DECREASED GLUCOSE; Start 09/13/18 at 18:00 Glucose (Glutose) 15 gm Q15M PRN BUCCAL DECREASED GLUCOSE; Start 09/13/18 at 18:00 Insulin Aspart (Novolog Insulin Pen) 4 unit WITH MEALS SC Last administered on 09/16/18 09:08; Admin Dose 4 UNIT; Start 09/14/18 at 12:00 Insulin Glargine (Lantus) 14 units DAILY@2000 SC Last administered on 09/15/18 20:39; Admin Dose 14 UNITS; Start 09/14/18 at 20:00 Morphine Sulfate (morphine) 6 mg Q4H PRN PO SEVERE PAIN LEVEL 7-10; Start 09/15/18 at 15:00 Vancomycin/Sodium Chloride 250 ml @ 125 mls/hr Q12H IVPB Last administered on 09/15/18at 23:55; Admin Dose 125 MLS/HR; Start 09/15/18 at 23:00 TRINY TUCKER NP Sep 16, 2018 10:55
[2018-09-16] MEDS: VANCOMYCIN 750 MG (PMX) 250 ML IVPB SCH ×2 (12:45→23:21)
[2018-09-16] MEDS ORDERED: ENALAPRILAT 1.25 MG INJ IV SCH (15:00)
[2018-09-16] MEDS ORDERED: METOPROLOL 25 MG TAB PO ONE (16:30)
[2018-09-16] MEDS: hydrALAzine 20 MG INJ IV PRN (17:50)
[2018-09-16] MEDS: ATORVASTATIN 20 MG TAB PO SCH (20:23)
[2018-09-16] MEDS: INSULIN GLARGINE [LANTus] (100 UNITS/ML) SYG SC SCH (20:32)
[2018-09-17 02:00] VITALS: BP 140/69; PULSE 90; RESP 18
[2018-09-17] MEDS: ACCU-CHEK XX SCH (02:17)
[2018-09-17] MEDS: INSULIN ASPART [NOVOLOG] 3 ML PEN SC SCH ×7 (08:00→20:24)
[2018-09-17 08:17] VITALS: BP 151/78; PULSE 87; RESP 18
[2018-09-17] MEDS: FERROUS SULFATE (EC) 325 MG TAB PO SCH (08:36)
[2018-09-17] MEDS: METOPROLOL 25 MG TAB PO SCH ×2 (08:37→20:18)
[2018-09-17] MEDS: SODIUM HYPOCHLORITE (1/40) 1 APPLIC BTL IRR SCH (08:40)
[2018-09-17] MEDS ORDERED: POTASSIUM CHLORIDE (SR) 20 MEQ TAB PO STA (08:50)
--- NOTE | 2018-09-17 08:51 | PN ---
Date/Time of Note Date/Time of Note DATE: 09/17/18 TIME: 08:51 Assessment/Plan VTE Prophylaxis Risk score (from [facility] [place])>0 risk: 2 SCD applied (from [facility] [place]): Yes Pharmacological prophylaxis: NA/contraindicated Pharm contraindication: bleeding, surgical contra Lines/Catheters IV Catheter Type (from [facility]): [place] Urinary Cath still in place: No Assessment/Plan Assessment/Plan 1. Left foot wound with abscess and osteomyelitis - Podiatry on board and plans for debridement and spacer placement per patient - Acute on chronic left foot wound - Podiatry on board and appreciate recommendations. - arterial studies noted - MRI results noted as well - Wound cultures noted and ID on board for antibiotics management 2. Sepsis secondary to above left foot wound - blood cultures negative - Wound cultures growing MRSA, strep and corynebacterium 3. Anemia, chronic disease - on iron supplements 4. Diabetes Mellitus - Insulin - ISS and accuchecks 5. Hypertension - Continue metoprolol 6. Disposition - Plans for surgical intervention possibly Saturday - continue current antibiotics per ID recommendations Result Diagram: 09/17/18 0446 09/17/18 0446 Results 24hrs Laboratory Tests Test 09/16/18 09:02 09/16/18 13:19 09/16/18 17:39 09/16/18 19:11 Bedside Glucose 135 203 189 Erythrocyte 100 H Sedimentation Rate C-Reactive Protein 3.2 H Test 09/16/18 20:25 09/17/18 02:12 09/17/18 04:46 09/17/18 08:34 Bedside Glucose 193 215 136 White Blood Count 7.8 Red Blood Count 2.76 L Hemoglobin 8.2 L Hematocrit 24.4 L Mean Corpuscular Volume 88.4 Mean Corpuscular 29.7 Hemoglobin Mean Corpuscular 33.6 Hemoglobin Concent Red Cell Distribution 13.3 Width Platelet Count 346 Mean Platelet Volume 8.8 Immature Granulocytes % 0.400 Neutrophils % 67.7 Lymphocytes % 24.2 Monocytes % 6.0 Eosinophils % 1.4 Basophils % 0.3 Nucleated Red Blood 0.0 Cells % Immature Granulocytes # 0.030 Neutrophils # 5.3 Lymphocytes # 1.9 Monocytes # 0.5 Eosinophils # 0.1 Basophils # 0.0 Nucleated Red Blood 0.0 Cells # Sodium Level 138 Potassium Level 3.4 L Chloride Level 112 H Carbon Dioxide Level 19 L Anion Gap 7 Blood Urea Nitrogen 20 Creatinine 0.91 Glucose Level 179 Calcium Level 8.5 Phosphorus Level 5.0 H Magnesium Level 1.8 Albumin 2.4 L Subjective 24 Hr Interval Summary Free Text/Dictation Patient doing well and denies any acute issues. Agreeable for debridement and spacer placement but still adamant about no amputation. Exam/Review of Systems Exam Vitals Vital Signs Date Temp Pulse Resp B/P (MAP) Pulse Ox O2 O2 Flow FiO2 Time Delivery Rate 09/17/18 98.6 87 18 151/78 98 Room Air 08:17 (102) Intake and Output 09/16/18 09/16/18 09/17/18 1414:59 22:59 06:59 IntakeIntake Total 250 ml 995 ml 250 ml OutputOutput Total 1300 ml BalanceBalance 250 ml -305 ml 250 ml Exam General: Patient is laying in bed and answers questions appropriately Neck: Supple, nontender, midline Respiratory: Clear to auscultation bilaterally. no wheezing Cardiovascular: regular rate and rhythm, no obvious murmurs Gastrointestinal: soft, non-tender to palpation, bowel sounds heard. Neurological: Moves all extremities spontaneously Skin: Left foot bandaged, no discharge or drainage Results Results 24hrs Laboratory Tests Test 09/16/18 09:02 09/16/18 13:19 09/16/18 17:39 09/16/18 19:11 Bedside Glucose 135 203 189 Erythrocyte 100 H Sedimentation Rate C-Reactive Protein 3.2 H Test 09/16/18 20:25 09/17/18 02:12 09/17/18 04:46 09/17/18 08:34 Bedside Glucose 193 215 136 White Blood Count 7.8 Red Blood Count 2.76 L Hemoglobin 8.2 L Hematocrit 24.4 L Mean Corpuscular Volume 88.4 Mean Corpuscular 29.7 Hemoglobin Mean Corpuscular 33.6 Hemoglobin Concent Red Cell Distribution 13.3 Width Platelet Count 346 Mean Platelet Volume 8.8 Immature Granulocytes % 0.400 Neutrophils % 67.7 Lymphocytes % 24.2 Monocytes % 6.0 Eosinophils % 1.4 Basophils % 0.3 Nucleated Red Blood 0.0 Cells % Immature Granulocytes # 0.030 Neutrophils # 5.3 Lymphocytes # 1.9 Monocytes # 0.5 Eosinophils # 0.1 Basophils # 0.0 Nucleated Red Blood 0.0 Cells # Sodium Level 138 Potassium Level 3.4 L Chloride Level 112 H Carbon Dioxide Level 19 L Anion Gap 7 Blood Urea Nitrogen 20 Creatinine 0.91 Glucose Level 179 Calcium Level 8.5 Phosphorus Level 5.0 H Magnesium Level 1.8 Albumin 2.4 L Medications Medication Current Medications Vancomycin HCl (Vanco Iv Per Pharmacy) VANCOMYCIN PER PHARMACY PER PROTOCOL XX ; Start 09/10/18 at 18:30 IV Flush (NS 3 ml) 3 ml PER PROTOCOL IV ; Start 09/10/18 at 18:30 Ondansetron HCl (Zofran Inj) 4 mg Q6H PRN IV NAUSEA/VOMITING Last administered on 09/11/18 08:08; Admin Dose 4 MG; Start 09/10/18 at 18:30 Acetaminophen (Tylenol Tab) 650 mg Q6H PRN PO .PAIN 1-3 OR TEMP Last administered on 09/15/18 20:28; Admin Dose 650 MG; Start 09/10/18 at 18:30 Acetaminophen/ Hydrocodone Bitart ([place] (5/325)) 1 tab Q6H PRN PO .PAIN 4-6; Start 09/10/18 at 18:30 Diagnostic Test (Pha) (Accu-Chek) 1 ea 02 XX Last administered on 09/17/18 02:17; Admin Dose 1 EA; Start 09/11/18 at 02:00 Insulin Aspart (Novolog Insulin Pen) NOVOLOG *MILD* ALGORITHM WITH MEALS BEDTIME SC Last administered on 09/16/18 20:33; Admin Dose 1 UNIT; Start 09/10/18 at 21:00 Hydralazine HCl (Apresoline) 10 mg Q4H PRN IV sbp >160 Last administered on 09/16/18 17:50; Admin Dose 10 MG; Start 09/10/18 at 18:30 Atorvastatin Calcium (Lipitor) 20 mg QHS PO Last administered on 09/16/18 20:23; Admin Dose 20 MG; Start 09/10/18 at 21:00 Ferrous Sulfate (Ferrous Sulfate (Ec)) 325 mg DAILY PO Last administered on 09/17/18 08:36; Admin Dose 325 MG; Start 09/11/18 at 09:00 Sodium Hypochlorite (Dakin'S (Dilute )) 1 applic DAILY IRR Last admi nistered on 09/17/18 08:40; Admin Dose 1 APPLIC; Start 09/12/18 at 09:00 Miscellaneous Information 1 ea NOTE XX ; Start 09/13/18 at 18:00 Glucose (Glutose) 15 gm Q15M PRN PO DECREASED GLUCOSE; Start 09/13/18 at 18:00 Glucose (Glutose) 22.5 gm Q15M PRN PO DECREASED GLUCOSE; Start 09/13/18 at 18:00 Dextrose (D50w Syringe) 25 ml Q15M PRN IV DECREASED GLUCOSE; Start 09/13/18 at 18:00 Dextrose (D50w Syringe) 50 ml Q15M PRN IV DECREASED GLUCOSE; Start 09/13/18 at 18:00 Glucagon (Glucagen) 1 mg Q15M PRN IM DECREASED GLUCOSE; Start 09/13/18 at 18:00 Glucose (Glutose) 15 gm Q15M PRN BUCCAL DECREASED GLUCOSE; Start 09/13/18 at 18:00 Insulin Aspart (Novolog Insulin Pen) 4 unit WITH MEALS SC Last administered on 09/17/18at 08:39; Admin Dose 4 UNIT; Start 09/14/18 at 12:00 Insulin Glargine (Lantus) 14 units DAILY@2000 SC Last administered on 09/16/18at 20:32; Admin Dose 14 UNITS; Start 09/14/18 at 20:00 Morphine Sulfate (morphine) 6 mg Q4H PRN PO SEVERE PAIN LEVEL 7-10; Start 09/15/18 at 15:00 Vancomycin/Sodium Chloride 250 ml @ 125 mls/hr Q12H IVPB Last administered on 09/16/18at 23:21; Admin Dose 125 MLS/HR; Start 09/15/18 at 23:00 Metoprolol Tartrate (Lopressor) 50 mg BID PO Last administered on 09/17/18at 08:37; Admin Dose 50 MG; Start 09/17/18 at 09:00 ANTONIO VITAL MD Sep 17, 2018 08:51
--- NOTE | 2018-09-17 11:32 | CONS ---
Assessment/Plan Assessment/Plan Hospital Course (Demo Recall) All noted, no acute events over night, no fevers Antimicrobials: Vanco Chest x-ray revealed no acute disease. Arterial study of left lower extremity showed inflow disease due to upstream stenosis Microbiology: Left ankle wound culture growing Corynebacterium, strep pyogenous and MRSA PHYSICAL EXAMINATION: GENERAL: This is a well-developed middle-aged woman who is in no distress. HEENT: Head is atraumatic, normocephalic. NECK: Supple. CHEST: Rise symmetrical. Breath sounds diminished to bases. HEART: S1, S2. ABDOMEN: Soft. Bowel tones present. EXTREMITIES: Left lower extremity dressing intact ASSESSMENT: 1. S/p sepsis secondary to #2 2. Left foot cellulitis, abscess, osteomyelitis, status post multiple incision and drainage/ skin graft 3. Diabetes 4. Diabetic neuropathy/PAD. 5. Anemia. PLAN: Remains unchanged, continue vancomycin, follow podiatry re commendations==> refusing amputation Consultation Date/Type/Reason Admit Date/Time Sep 10, 2018 at 18:26 Initial Consult Date Type of Consult id Date/Time of Note DATE: 09/17/18 TIME: 11:31 Exam/Review of Systems Exam Vitals Vital Signs Date Temp Pulse Resp B/P (MAP) Pulse Ox O2 O2 Flow FiO2 Time Delivery Rate 09/17/18 98.6 87 18 151/78 98 Room Air 08:17 (102) Intake and Output 09/16/18 09/16/18 09/17/18 1515:00 23:00 07:00 IntakeIntake Total 250 ml 995 ml 250 ml OutputOutput Total 1300 ml BalanceBalance 250 ml -305 ml 250 ml Results Result Diagram: 09/17/18 0446 09/17/18 0446 Results 24hrs Laboratory Tests Test 09/16/18 13:19 09/16/18 17:39 09/16/18 19:11 09/16/18 20:25 Bedside Glucose 203 189 193 Erythrocyte 100 H Sedimentation Rate C-Reactive Protein 3.2 H Test 09/17/18 02:12 09/17/18 04:46 09/17/18 08:34 Bedside Glucose 215 136 White Blood Count 7.8 Red Blood Count 2.76 L Hemoglobin 8.2 L Hematocrit 24.4 L Mean Corpuscular Volume 88.4 Mean Corpuscular 29.7 Hemoglobin Mean Corpuscular 33.6 Hemoglobin Concent Red Cell Distribution 13.3 Width Platelet Count 346 Mean Platelet Volume 8.8 Immature Granulocytes % 0.400 Neutrophils % 67.7 Lymphocytes % 24.2 Monocytes % 6.0 Eosinophils % 1.4 Basophils % 0.3 Nucleated Red Blood 0.0 Cells % Immature Granulocytes # 0.030 Neutrophils # 5.3 Lymphocytes # 1.9 Monocytes # 0.5 Eosinophils # 0.1 Basophils # 0.0 Nucleated Red Blood 0.0 Cells # Sodium Level 138 Potassium Level 3.4 L Chloride Level 112 H Carbon Dioxide Level 19 L Anion Gap 7 Blood Urea Nitrogen 20 Creatinine 0.91 Glucose Level 179 Calcium Level 8.5 Phosphorus Level 5.0 H Magnesium Level 1.8 Albumin 2.4 L Medications Medication Current Medications Vancomycin HCl (Vanco Iv Per Pharmacy) VANCOMYCIN PER PHARMACY PER PROTOCOL XX ; Start 09/10/18 at 18:30 IV Flush (NS 3 ml) 3 ml PER PROTOCOL IV ; Start 09/10/18 at 18:30 Ondansetron HCl (Zofran Inj) 4 mg Q6H PRN IV NAUSEA/VOMITING Last administered on 09/11/18 08:08; Admin Dose 4 MG; Start 09/10/18 at 18:30 Acetaminophen (Tylenol Tab) 650 mg Q6H PRN PO .PAIN 1-3 OR TEMP Last administered on 09/15/18 20:28; Admin Dose 650 MG; Start 09/10/18 at 18:30 Acetaminophen/ Hydrocodone Bitart ([place] (5/325)) 1 tab Q6H PRN PO .PAIN 4-6; Start 09/10/18 at 18:30 Diagnostic Test (Pha) (Accu-Chek) 1 ea 02 XX Last administered on 09/17/18 02:17; Admin Dose 1 EA; Start 09/11/18 at 02:00 Insulin Aspart (Novolog Insulin Pen) NOVOLOG *MILD* ALGORITHM WITH MEALS BEDTIME SC Last administered on 09/16/18 20:33; Admin Dose 1 UNIT; Start 09/10/18 at 21:00 Hydralazine HCl (Apresoline) 10 mg Q4H PRN IV sbp >160 Last administered on 09/16/18 17:50; Admin Dose 10 MG; Start 09/10/18 at 18:30 Atorvastatin Calcium (Lipitor) 20 mg QHS PO Last administered on 09/16/18 20:23; Admin Dose 20 MG; Start 09/10/18 at 21:00 Ferrous Sulfate (Ferrous Sulfate (Ec)) 325 mg DAILY PO Last administered on 09/17/18 08:36; Admin Dose 325 MG; Start 09/11/18 at 09:00 Sodium Hypochlorite (Dakin'S (Dilute )) 1 applic DAILY IRR Last administered on 09/17/18 08:40; Admin Dose 1 APPLIC; Start 09/12/18 at 09:00 Miscellaneous Information 1 ea NOTE XX ; Start 09/13/18 at 18:00 Glucose (Glutose) 15 gm Q15M PRN PO DECREASED GLUCOSE; Start 09/13/18 at 18:00 Glucose (Glutose) 22.5 gm Q15M PRN PO DECREASED GLUCOSE; Start 09/13/18 at 18:00 Dextrose (D50w Syringe) 25 ml Q15M PRN IV DECREASED GLUCOSE; Start 09/13/18 at 18:00 Dextrose (D50w Syringe) 50 ml Q15M PRN IV DECREASED GLUCOSE; Start 09/13/18 at 18:00 Glucagon (Glucagen) 1 mg Q15M PRN IM DECREASED GLUCOSE; Start 09/13/18 at 18:00 Glucose (Glutose) 15 gm Q15M PRN BUCCAL DECREASED GLUCOSE; Start 09/13/18 at 18:00 Insulin Aspart (Novolog Insulin Pen) 4 unit WITH MEALS SC Last administered on 09/17/18 08:39; Admin Dose 4 UNIT; Start 09/14/18 at 12:00 Insulin Glargine (Lantus) 14 units DAILY@2000 SC Last administered on 09/16/18 20:32; Admin Dose 14 UNITS; Start 09/14/18 at 20:00 Morphine Sulfate (morphine) 6 mg Q4H PRN PO SEVERE PAIN LEVEL 7-10; Start 09/15/18 at 15:00 Vancomycin/Sodium Chloride 250 ml @ 125 mls/hr Q12H IVPB Last administered on 09/16/18 23:21; Admin Dose 125 MLS/HR; Start 09/15/18 at 23:00 Metoprolol Tartrate (Lopressor) 50 mg BID PO Last administered on 09/17/18 08:37; Admin Dose 50 MG; Start 09/17/18 at 09:00 TRINY TUCKER NP Sep 17, 2018 11:32
[2018-09-17] MEDS: VANCOMYCIN 750 MG (PMX) 250 ML IVPB SCH (12:20)
[2018-09-17 14:00] VITALS: BP 161/79; PULSE 93; RESP 18
[2018-09-17 19:38] VITALS: BP 182/90; PULSE 104; RESP 18
[2018-09-17] MEDS: hydrALAzine 20 MG INJ IV PRN (20:10)
[2018-09-17] MEDS: ATORVASTATIN 20 MG TAB PO SCH (20:17)
[2018-09-17] MEDS: INSULIN GLARGINE [LANTus] (100 UNITS/ML) SYG SC SCH (20:22)
[2018-09-17 21:05] VITALS: BP 163/81; PULSE 107
[2018-09-18 01:45] VITALS: BP 133/64; PULSE 99; RESP 18
[2018-09-18] MEDS: ACCU-CHEK XX SCH (02:00)
[2018-09-18] MEDS ORDERED: INSULIN ASPART [NOVOLOG] 3 ML PEN SC ONE (03:00)
[2018-09-18] MEDS: FERROUS SULFATE (EC) 325 MG TAB PO SCH (08:41)
[2018-09-18] MEDS: SODIUM HYPOCHLORITE (1/40) 1 APPLIC BTL IRR SCH (08:41)
[2018-09-18] MEDS: METOPROLOL 25 MG TAB PO SCH ×2 (08:42→21:39)
[2018-09-18] MEDS: INSULIN ASPART [NOVOLOG] 3 ML PEN SC SCH ×7 (08:44→21:00)
[2018-09-18] MEDS ORDERED: SOD CHLORIDE 0.9% 1,000 ML IV SCH (09:00)
--- NOTE | 2018-09-18 09:00 | PN ---
Date/Time of Note Date/Time of Note DATE: 09/18/18 TIME: 09:00 Assessment/Plan VTE Prophylaxis Risk score (from Ns)>0 risk: 6 SCD applied (from Ns): Yes Pharmacological prophylaxis: NA/contraindicated Pharm contraindication: bleeding Lines/Catheters IV Catheter Type (from Nrs): Saline Lock Urinary Cath still in place: No Assessment/Plan Assessment/Plan 1. Left foot wound with abscess and osteomyelitis - Podiatry on board and plans for debridement and spacer placement per patient - ID on board and appreciate recommendations. Adjustments made to antibiotics since Cr rising and patient may be allergic to vancomycin - Acute on chronic left foot wound - arterial studies noted - MRI results noted as well - Wound cultures noted 2. Sepsis secondary to above left foot wound - blood cultures negative - Wound cultures growing MRSA, strep and corynebacterium 3. Anemia, chronic disease - on iron supplements 4. Diabetes Mellitus - Insulin - ISS and accuchecks 5. Hypertension - Continue metoprolol 6. Disposition - Plans for surgical intervention possibly Saturday - continue current antibiotics per ID recommendations Result Diagram: 09/18/18 0551 09/18/18 0551 Results 24hrs Laboratory Tests Test 09/17/18 12:49 09/17/18 17:15 09/17/18 20:17 09/17/18 22:16 Bedside Glucose 223 H 305 H 192 Vancomycin Level Trough 23.3 *H Test 09/18/18 02:16 09/18/18 05:51 Bedside Glucose 190 White Blood Count 7.6 Red Blood Count 2.63 L Hemoglobin 7.9 L Hematocrit 23.2 L Mean Corpuscular Volume 88.2 Mean Corpuscular 30.0 Hemoglobin Mean Corpuscular 34.1 Hemoglobin Concent Red Cell Distribution 13.5 Width Platelet Count 325 Mean Platelet Volume 8.8 Immature Granulocytes % 0.500 H Neutrophils % 63.9 Lymphocytes % 26.7 Monocytes % 7.0 Eosinophils % 1.6 Basophils % 0.3 Nucleated Red Blood 0.0 Cells % Immature Granulocytes # 0.040 H Neutrophils # 4.9 Lymphocytes # 2.0 Monocytes # 0.5 Eosinophils # 0.1 Basophils # 0.0 Nucleated Red Blood 0.0 Cells # Sodium Level 138 Potassium Level 4.2 Chloride Level 110 Carbon Dioxide Level 21 Anion Gap 7 Blood Urea Nitrogen 32 #H Creatinine 1.18 H Glucose Level 173 Calcium Level 8.8 Phosphorus Level 4.5 Magnesium Level 1.8 Albumin 2.6 L Subjective 24 Hr Interval Summary Free Text/Dictation Patient states she feels as if her face is swollen. Per charge nurse, she has noticed progressive worsening during course of hospitalization. Denies any itching or vision issues. Exam/Review of Systems Exam Vitals Vital Signs Date Temp Pulse Resp B/P (MAP) Pulse Ox O2 O2 Flow FiO2 Time Delivery Rate 09/18/18 98.6 99 18 133/64 98 01:45 (87) 09/17/18 Room Air 14:00 Intake and Output 09/17/18 09/17/18 09/18/18 1515:00 23:00 07:00 IntakeIntake Total 360 ml OutputOutput Total 450 ml BalanceBalance -90 ml Exam General: Patient is laying in bed and answers questions appropriately Neck: Supple, nontender, midline Respiratory: Clear to auscultation bilaterally. no wheezing Cardiovascular: regular rate and rhythm, no obvious murmurs Gastrointestinal: soft, non-tender to palpation, bowel sounds heard. Neurological: Moves all extremities spontaneously Skin: Left foot bandaged, LLE warm to touch Results Results 24hrs Laboratory Tests Test 09/17/18 12:49 09/17/18 17:15 09/17/18 20:17 09/17/18 22:16 Bedside Glucose 223 H 305 H 192 Vancomycin Level Trough 23.3 *H Test 09/18/18 02:16 09/18/18 05:51 Bedside Glucose 190 White Blood Count 7.6 Red Blood Count 2.63 L Hemoglobin 7.9 L Hematocrit 23.2 L Mean Corpuscular Volume 88.2 Mean Corpuscular 30.0 Hemoglobin Mean Corpuscular 34.1 Hemoglobin Concent Red Cell Distribution 13.5 Width Platelet Count 325 Mean Platelet Volume 8.8 Immature Granulocytes % 0.500 H Neutrophils % 63.9 Lymphocytes % 26.7 Monocytes % 7.0 Eosinophils % 1.6 Basophils % 0.3 Nucleated Red Blood 0.0 Cells % Immature Granulocytes # 0.040 H Neutrophils # 4.9 Lymphocytes # 2.0 Monocytes # 0.5 Eosinophils # 0.1 Basophils # 0.0 Nucleated Red Blood 0.0 Cells # Sodium Level 138 Potassium Level 4.2 Chloride Level 110 Carbon Dioxide Level 21 Anion Gap 7 Blood Urea Nitrogen 32 #H Creatinine 1.18 H Glucose Level 173 Calcium Level 8.8 Phosphorus Level 4.5 Magnesium Level 1.8 Albumin 2.6 L Medications Medication Current Medications Vancomycin HCl (Vanco Iv Per Pharmacy) VANCOMYCIN PER PHARMACY PER PROTOCOL XX ; Start 09/10/18 at 18:30 IV Flush (NS 3 ml) 3 ml PER PROTOCOL IV ; Start 09/10/18 at 18:30 Ondansetron HCl (Zofran Inj) 4 mg Q6H PRN IV NAUSEA/VOMITING Last administered on 09/11/18 08:08; Admin Dose 4 MG; Start 09/10/18 at 18:30 Acetaminophen (Tylenol Tab) 650 mg Q6H PRN PO .PAIN 1-3 OR TEMP Last administ ered on 09/15/18 20:28; Admin Dose 650 MG; Start 09/10/18 at 18:30 Acetaminophen/ Hydrocodone Bitart ([place] (5/325)) 1 tab Q6H PRN PO .PAIN 4-6; Start 09/10/18 at 18:30 Diagnostic Test (Pha) (Accu-Chek) 1 ea 02 XX Last administered on 09/17/18 02:17; Admin Dose 1 EA; Start 09/11/18 at 02:00 Insulin Aspart (Novolog Insulin Pen) NOVOLOG *MILD* ALGORITHM WITH MEALS BEDTIME SC Last administered on 09/18/18 08:44; Admin Dose 1 UNIT; Start 09/10/18 at 21:00 Hydralazine HCl (Apresoline) 10 mg Q4H PRN IV sbp >160 Last administered on 09/17/18 20:10; Admin Dose 10 MG; Start 09/10/18 at 18:30 Atorvastatin Calcium (Lipitor) 20 mg QHS PO Last administered on 09/17/18 20:17; Admin Dose 20 MG; Start 09/10/18 at 21:00 Ferrous Sulfate (Ferrous Sulfate (Ec)) 325 mg DAILY PO Last administered on 09/18/18 08:41; Admin Dose 325 MG; Start 09/11/18 at 09:00 Sodium Hypochlorite (Dakin'S (Dilute )) 1 applic DAILY IRR Last administered on 09/18/18 08:41; Admin Dose 1 APPLIC; Start 09/12/18 at 09:00 Miscellaneous Information 1 ea NOTE XX ; Start 09/13/18 at 18:00 Glucose (Glutose) 15 gm Q15M PRN PO DECREASED GLUCOSE; Start 09/13/18 at 18:00 Glucose (Glutose) 22.5 gm Q15M PRN PO DECREASED GLUCOSE; Start 09/13/18 at 18:00 Dextrose (D50w Syringe) 25 ml Q15M PRN IV DECREASED GLUCOSE; Start 09/13/18 at 18:00 Dextrose (D50w Syringe) 50 ml Q15M PRN IV DECREASED GLUCOSE; Start 09/13/18 at 18:00 Glucagon (Glucagen) 1 mg Q15M PRN IM DECREASED GLUCOSE; Start 09/13/18 at 18:00 Glucose (Glutose) 15 gm Q15M PRN BUCCAL DECREASED GLUCOSE; Start 09/13/18 at 18:00 Insulin Aspart (Novolog Insulin Pen) 4 unit WITH MEALS SC Last administered on 09/18/18at 08:45; Admin Dose 4 UNIT; Start 09/14/18 at 12:00 Insulin Glargine (Lantus) 14 units DAILY@2000 SC Last administered on 09/17/18at 20:22; Admin Dose 14 UNITS; Start 09/14/18 at 20:00 Morphine Sulfate (morphine) 6 mg Q4H PRN PO SEVERE PAIN LEVEL 7-10; Start 09/15/18 at 15:00 Metoprolol Tartrate (Lopressor) 50 mg BID PO Last administered on 09/18/18at 08:42; Admin Dose 50 MG; Start 09/17/18 at 09:00 Vancomycin HCl 250 ml @ 125 mls/hr Q24H IVPB ; Start 09/18/18 at 12:00 ANTONIO VITAL MD Sep 18, 2018 09:00
--- NOTE | 2018-09-18 11:11 | CONS ---
Assessment/Plan Assessment/Plan Hospital Course (Demo Recall) All noted, no acute events over night, awake, looks comfortable, no fevers Cr 1.18 Antimicrobials: Vanco Chest x-ray revealed no acute disease. Arterial study of left lower extremity showed inflow disease due to upstream stenosis Microbiology: Left ankle wound culture growing Corynebacterium, strep pyogenous and MRSA PHYSICAL EXAMINATION: GENERAL: This is a well-developed middle-aged woman who is in no distress. HEENT: Head is atraumatic, normocephalic. NECK: Supple. CHEST: Rise symmetrical. Breath sounds diminished to bases. HEART: S1, S2. ABDOMEN: Soft. Bowel tones present. EXTREMITIES: Left lower extremity dressing intact ASSESSMENT: 1. S/p sepsis secondary to #2 2. Left foot cellulitis, abscess, osteomyelitis, status post multiple incision and drainage/ skin graft 3. Diabetes 4. Diabetic neuropathy/PAD. 5. Anemia. PLAN: Stable, change Vanco to Daptomycin given worsening renal f-n, follow podiatry recommendations==> pending surgical intervention Consultation Date/Type/Reason Admit Date/Time Sep 10, 2018 at 18:26 Initial Consult Date Type of Consult id Date/Time of Note DATE: 09/18/18 TIME: 11:08 Exam/Review of Systems Exam Vitals Vital Signs Date Temp Pulse Resp B/P (MAP) Pulse Ox O2 O2 Flow FiO2 Time Delivery Rate 09/18/18 98.6 99 18 133/64 98 01:45 (87) 09/17/18 Room Air 14:00 Intake and Output 09/17/18 09/17/18 09/18/18 1515:00 23:00 07:00 IntakeIntake Total 360 ml OutputOutput Total 450 ml BalanceBalance -90 ml Results Result Diagram: 09/18/18 0551 09/18/18 0551 Results 24hrs Laboratory Tests Test 09/17/18 12:49 09/17/18 17:15 09/17/18 20:17 09/17/18 22:16 Bedside Glucose 223 H 305 H 192 Vancomycin Level Trough 23.3 *H Test 09/18/18 02:16 09/18/18 05:51 09/18/18 08:40 Bedside Glucose 190 166 White Blood Count 7.6 Red Blood Count 2.63 L Hemoglobin 7.9 L Hematocrit 23.2 L Mean Corpuscular Volume 88.2 Mean Corpuscular 30.0 Hemoglobin Mean Corpuscular 34.1 Hemoglobin Concent Red Cell Distribution 13.5 Width Platelet Count 325 Mean Platelet Volume 8.8 Immature Granulocytes % 0.500 H Neutrophils % 63.9 Lymphocytes % 26.7 Monocytes % 7.0 Eosinophils % 1.6 Basophils % 0.3 Nucleated Red Blood 0.0 Cells % Immature Granulocytes # 0.040 H Neutrophils # 4.9 Lymphocytes # 2.0 Monocytes # 0.5 Eosinophils # 0.1 Basophils # 0.0 Nucleated Red Blood 0.0 Cells # Sodium Level 138 Potassium Level 4.2 Chloride Level 110 Carbon Dioxide Level 21 Anion Gap 7 Blood Urea Nitrogen 32 #H Creatinine 1.18 H Glucose Level 173 Calcium Level 8.8 Phosphorus Level 4.5 Magnesium Level 1.8 Albumin 2.6 L Medications Medication Current Medications Vancomycin HCl (Vanco Iv Per Pharmacy) VANCOMYCIN PER PHARMACY PER PROTOCOL XX ; Start 09/10/18 at 18:30 IV Flush (NS 3 ml) 3 ml PER PROTOCOL IV ; Start 09/10/18 at 18:30 Ondansetron HCl (Zofran Inj) 4 mg Q6H PRN IV NAUSEA/VOMITING Last administered on 09/11/18 08:08; Admin Dose 4 MG; Start 09/10/18 at 18:30 Acetaminophen (Tylenol Tab) 650 mg Q6H PRN PO .PAIN 1-3 OR TEMP Last administered on 09/15/18 20:28; Admin Dose 650 MG; Start 09/10/18 at 18:30 Acetaminophen/ Hydrocodone Bitart ([place] (5/325)) 1 tab Q6H PRN PO .PAIN 4-6; Start 09/10/18 at 18:30 Diagnostic Test (Pha) (Accu-Chek) 1 ea 02 XX Last administered on 09/17/18 02:17; Admin Dose 1 EA; Start 09/11/18 at 02:00 Insulin Aspart (Novolog Insulin Pen) NOVOLOG *MILD* ALGORITHM WITH MEALS BEDTIME SC Last administered on 09/18/18 08:44; Admin Dose 1 UNIT; Start 09/10/18 at 21:00 Hydralazine HCl (Apresoline) 10 mg Q4H PRN IV sbp >160 Last administered on 09/17/18 20:10; Admin Dose 10 MG; Start 09/10/18 at 18:30 Atorvastatin Calcium (Lipitor) 20 mg QHS PO Last administered on 09/17/18at 20:17; Admin Dose 20 MG; Start 09/10/18 at 21:00 Ferrous Sulfate (Ferrous Sulfate (Ec)) 325 mg DAILY PO Last administered on 09/18/18 08:41; Admin Dose 325 MG; Start 09/11/18 at 09:00 Sodium Hypochlorite (Dakin'S (Dilute )) 1 applic DAILY IRR Last admi nistered on 09/18/18at 08:41; Admin Dose 1 APPLIC; Start 09/12/18 at 09:00 Miscellaneous Information 1 ea NOTE XX ; Start 09/13/18 at 18:00 Glucose (Glutose) 15 gm Q15M PRN PO DECREASED GLUCOSE; Start 09/13/18 at 18:00 Glucose (Glutose) 22.5 gm Q15M PRN PO DECREASED GLUCOSE; Start 09/13/18 at 18:00 Dextrose (D50w Syringe) 25 ml Q15M PRN IV DECREASED GLUCOSE; Start 09/13/18 at 18:00 Dextrose (D50w Syringe) 50 ml Q15M PRN IV DECREASED GLUCOSE; Start 09/13/18 at 18:00 Glucagon (Glucagen) 1 mg Q15M PRN IM DECREASED GLUCOSE; Start 09/13/18 at 18:00 Glucose (Glutose) 15 gm Q15M PRN BUCCAL DECREASED GLUCOSE; Start 09/13/18 at 18:00 Insulin Aspart (Novolog Insulin Pen) 4 unit WITH MEALS SC Last administered on 09/18/18at 08:45; Admin Dose 4 UNIT; Start 09/14/18 at 12:00 Insulin Glargine (Lantus) 14 units DAILY@2000 SC Last administered on 09/17/18at 20:22; Admin Dose 14 UNITS; Start 09/14/18 at 20:00 Morphine Sulfate (morphine) 6 mg Q4H PRN PO SEVERE PAIN LEVEL 7-10; Start 09/15/18 at 15:00 Metoprolol Tartrate (Lopressor) 50 mg BID PO Last administered on 09/18/18at 08:42; Admin Dose 50 MG; Start 09/17/18 at 09:00 Vancomycin HCl 250 ml @ 125 mls/hr Q24H IVPB ; Start 09/18/18 at 12:00 Sodium Chloride 1,000 ml @ 100 mls/hr Q10H IV Last administered on 09/18/18at 10:13; Admin Dose 100 MLS/HR; Start 09/18/18 at 09:00; Stop 09/18/18 at 18:59 TRINY TUCKER NP Sep 18, 2018 11:11
[2018-09-18] MEDS ORDERED: VANCOMYCIN 1 GM 250 ML IVPB SCH (12:00)
[2018-09-18] MEDS ORDERED: SALINE 0.65% 45 ML NAS SPRAY NASAL PRN (12:30)
[2018-09-18] MEDS: BENZONATATE 100 MG CAP PO PRN (13:06)
--- NOTE | 2018-09-18 15:32 | PREAC ---
Date/Time of Note Date/Time of Note DATE: 09/18/18 TIME: 15:31 Anesthesia Eval and Record Evaluation Time Pre-Procedure Interview DATE: 09/18/18 TIME: 15:31 Age 48 Sex female NPO: 8 hrs Preoperative diagnosis Left foot wound, possible osteomyelitis, chronic Charcot deformity Planned procedure LEFT FOOT DEBRIDEMENT Past Medical History Past Medical History: Includes Cardio: HTN, Dyslipidemia Endo: Diabetes Heme: Anemia Surgery & Anesthesia Issues No known issue Meds Anticoagulation: No Beta Brittney within 24 hr: No Reason Beta Brittney not given: Pt. not on B-Brittney Reported Medications Cholecalciferol (Vitamin D3) 5,000 Unit Tablet, 5000 UNIT PO DAILY, TAB 09/10/18 Ascorbic Acid* (Vitamin C*) 500 Mg Capsule.sa, 500 MG PO DAILY, CAP 09/10/18 [place]-3 Fatty Acids/Fish Oil (Fish Oil 1,000 mg Capsule) 1 Each Capsule, 1 EACH PO DAILY, CAP 09/10/18 Atorvastatin Calcium* (Atorvastatin Calcium*) 20 Mg Tablet, 20 MG PO QHS, #30 TAB 08/25/18 Metoprolol Tartrate* (Lopressor*) 25 Mg Tab, 25 MG PO BID, #60 TAB 08/25/18 Metformin Hcl* (Metformin Hcl*) 500 Mg Tablet, 500 MG PO WITH BREAKFAST DINNE, #60 TAB 08/25/18 Glipizide* (Glipizide*) 5 Mg Tablet, 5 MG PO AC BREAKFAST, TAB 08/25/18 Ferrous Sulfate* (Ferrous Sulfate*) 325 Mg Tabec, 325 MG PO DAILY, TAB 08/25/18 Current Medications IV Flush (NS 3 ml) 3 ml PER PROTOCOL IV ; Start 09/10/18 at 18:30 Ondansetron HCl (Zofran Inj) 4 mg Q6H PRN IV NAUSEA/VOMITING Last administered on 09/11/18at 08:08; Admin Dose 4 MG; Start 09/10/18 at 18:30 Acetaminophen (Tylenol Tab) 650 mg Q6H PRN PO .PAIN 1-3 OR TEMP Last administered on 09/15/18at 20:28; Admin Dose 650 MG; Start 09/10/18 at 18:30 Acetaminophen/ Hydrocodone Bitart ([place] (5/325)) 1 tab Q6H PRN PO .PAIN 4-6; Start 09/10/18 at 18:30 Diagnostic Test (Pha) (Accu-Chek) 1 ea 02 XX Last administered on 09/17/18at 02:1 7; Admin Dose 1 EA; Start 09/11/18 at 02:00 Insulin Aspart (Novolog Insulin Pen) NOVOLOG *MILD* ALGORITHM WITH MEALS BEDTIME SC Last administered on 09/18/18 12:17; Admin Dose 2 UNIT; Start 09/10/18 at 21:00 Hydralazine HCl (Apresoline) 10 mg Q4H PRN IV sbp >160 Last administered on 09/17/18at 20:10; Admin Dose 10 MG; Start 09/10/18 at 18:30 Atorvastatin Calcium (Lipitor) 20 mg QHS PO Last administered on 09/17/18 20:17; Admin Dose 20 MG; Start 09/10/18 at 21:00 Ferrous Sulfate (Ferrous Sulfate (Ec)) 325 mg DAILY PO Last administered on 09/18/18at 08:41; Admin Dose 325 MG; Start 09/11/18 at 09:00 Sodium Hypochlorite (Dakin'S (Dilute )) 1 applic DAILY IRR Last administered on 09/18/18 08:41; Admin Dose 1 APPLIC; Start 09/12/18 at 09:00 Miscellaneous Information 1 ea NOTE XX ; Start 09/13/18 at 18:00 Glucose (Glutose) 15 gm Q15M PRN PO DECREASED GLUCOSE; Start 09/13/18 at 18:00 Glucose (Glutose) 22.5 gm Q15M PRN PO DECREASED GLUCOSE; Start 09/13/18 at 18:00 Dextrose (D50w Syringe) 25 ml Q15M PRN IV DECREASED GLUCOSE; Start 09/13/18 at 18:00 Dextrose (D50w Syringe) 50 ml Q15M PRN IV DECREASED GLUCOSE; Start 09/13/18 at 18:00 Glucagon (Glucagen) 1 mg Q15M PRN IM DECREASED GLUCOSE; Start 09/13/18 at 18:00 Glucose (Glutose) 15 gm Q15M PRN BUCCAL DECREASED GLUCOSE; Start 09/13/18 at 18:00 Insulin Aspart (Novolog Insulin Pen) 4 unit WITH MEALS SC Last administered on 09/18/18at 12:18; Admin Dose 4 UNIT; Start 09/14/18 at 12:00 Insulin Glargine (Lantus) 14 units DAILY@2000 SC Last administered on 09/17/18at 20:22; Admin Dose 14 UNITS; Start 09/14/18 at 20:00 Morphine Sulfate (morphine) 6 mg Q4H PRN PO SEVERE PAIN LEVEL 7-10; Start 09/15/18 at 15:00 Metoprolol Tartrate (Lopressor) 50 mg BID PO Last administered on 09/18/18at 08:42; Admin Dose 50 MG; Start 09/17/18 at 09:00 Sodium Chloride 1,000 ml @ 100 mls/hr Q10H IV Last administered on 09/18/18at 10:13; Admin Dose 100 MLS/HR; Start 09/18/18 at 09:00; Stop 09/18/18 at 18:59 Daptomycin 355 mg/ Sodium Chloride 100 ml @ 200 mls/hr Q24H IVPB ; Start 09/18/18 at 14:00 Sodium Chloride ([place]) 2 spray Q4H PRN NASAL congestion Last administered on 09/18/18at 13:06; Admin Dose 2 SPRAY; Start 09/18/18 at 12:30 Benzonatate (Tessalon) 100 mg TID PRN PO cough Last administered on 09/18/18at 13:06; Admin Dose 100 MG; Start 09/18/18 at 12:30 Meds reviewed: Yes Allergies Coded Allergies: No Known Allergy (Unverified , 09/10/18) Allergies Reviewed: Yes Labs/Studies Labs Reviewed: Reviewed by anesthesiologist Result Diagram: 09/18/18 0551 09/18/18 0551 Laboratory Tests 09/18/18 05:51 test: N/A Studies: ECG, CXR (No acute disease.) Pre-procedure Exam Last vitals Vital Signs Date Temp Pulse Resp B/P (MAP) Pulse Ox O2 O2 Flow FiO2 Time Delivery Rate 09/18/18 98.6 99 18 133/64 98 01:45 (87) 09/17/18 Room Air 14:00 Airway: Adequate mouth opening Mallampati: Mallampati II Teeth: Normal Lung: Normal Heart: Normal ASA Physical Status ASA physical status: 2 Emergency: None Planned Anesthetic General/MAC: ETT Pre-operative Attestations Prior to commencing anesthesia and surgery, the patient was re-evaluated, there was verification of: *The patient's identity *The results of appropriate recent lab work and preoperative vital signs *The above evaluation not changing prior to induction *Anesthetic plan, risk benefits, alternative and complications discussed with patient/family; questions answered; patient/family understands, accepts and wishes to proceed. BECKY MCDONNELL Sep 18, 2018 15:32
[2018-09-18 15:42] VITALS: BP 177/96; PULSE 93; RESP 18
[2018-09-18] MEDS: SOD CHLORIDE 0.9% IVPB SCH (15:51)
[2018-09-18] MEDS: DAPTOMYCIN IVPB SCH (15:51)
[2018-09-18] MEDS: hydrALAzine 20 MG INJ IV PRN (15:52)
--- NOTE | 2018-09-18 19:26 | CONS ---
Assessment/Plan Assessment/Plan Assessment/Plan (Daily) Left foot diabetic ulcer Left 2nd digit gangrene - present on admission Left foot cellulitis Left foot abscess Left foot osteomyelitis Left lower extremity failed graft site DM2 with peripheral neuropathy PAD Plan Patient is desiring limb salvage at this time and wants to explore other options before committing to a chopart amputation. Patient amenable to left foot wound debridement, with removal of infected bone and application of antibiotic spacer with left 2nd digit amputation. Discussed with patient that a successful outcome is a low likelihood given the extent of ulceration and infection. Patient NPO after breakfast tomorro morning. Prepare consent. Continue with IV abx. Wounds irrigated and dressings changed. Non weight bearing to left lower extremity. Consultation Date/Type/Reason Admit Date/Time Sep 10, 2018 at 18:26 Initial Consult Date Date/Time of Note DATE: 09/18/18 TIME: 19:26 24 HR Interval Summary Free Text/Dictation No acute events overnight. Exam/Review of Systems Exam Vitals Vital Signs Date Temp Pulse Resp B/P (MAP) Pulse Ox O2 O2 Flow FiO2 Time Delivery Rate 09/18/18 98.0 93 18 177/96 99 15:42 (123) 09/17/18 Room Air 14:00 Intake and Output 09/17/18 09/17/18 09/18/18 1515:00 23:00 07:00 IntakeIntake Total 360 ml OutputOutput Total 450 ml BalanceBalance -90 ml Exam Left foot medial and plantar ulceration 10 x 8 x 2.0cm there is bone, tendon muscle exposed. Wound tunnels into the central compartment of the foot ~2-3cm. Wound base mixed granular and fibrotic with focal areas of necrosis noted. Left foot multiple dorsal ulceration sites at previous skin graft site 5 x 5cm granular wound base no tunneling appreciated. Left foot lateral ulceration site 2 x 2 x 0.8cm ulceration with mild granulation tissue formation and bone exposed Absent protective sensations Left 2nd digit with gangrene formation Left plantar hallux ulcer with fibronecrotic wound base 3 x 3 x 0.6cm purulence appreciated Left 1st dorsal interspace ulceration 4 x 4 x 1.5cm which communicates with the plantar ulceration site. Purulence is expressed approximately 1-2mL Unable to dorsiflex digits Weak ankle dorsiflexion Foot X-ray IMPRESSION: 1. Large plantar medial midfoot soft tissue defect with gas extending to the level of the second MTP joint. 2. Well-defined defect in the medial base of the first metatarsal and medial cuneiform likely postsurgical. Medial base of the first metatarsal margin appears smooth. Cortical indistinctness of the medial margin of the medial cuneiform. Correlate for date of surgery. Findings are concerning for osteomyelitis. 3. Interval widening of the second MTP joint space with irregularity of the lateral base of the second proximal phalanx, as well as widening of the second PIP joint space with irregularity of the head of the second proximal phalanx likely representing joint effusions, suspicious for septic arthritis and osteomyelitis. Marked soft tissue swelling in the second digit and forefoot. 4. Severe diffuse osteopenia. 5. Recommend MRI for further evaluation. Non invasive arterial studies IMPRESSION: Patent left lower extremity arteries. Monophasic waveforms from the left popliteal artery distally. This is suggestive of inflow disease due to upstream stenosis. MRI Foot IMPRESSION: 1. Bone marrow edema and bone destructive changes in the midfoot as described. Findings are likely a neuropathic joint/Charcot joint related and could also represent polyostotic osteomyelitis. 2. Soft tissue air consistent with a clinical impression of gangrene. 3. No abscess is seen. MRI Ankle IMPRESSION: 1. Findings in the bones of the hind foot suggesting reactive edema. No bone destructive changes to confirm osteomyelitis. 2. Destructive changes of the bones of the midfoot consistent with Charcot changes versus polyostotic osteomyelitis. 3. No evidence for soft tissue air in the ankle to suggest gangrene. 4. No abscess identified in the ankle region. Results Result Diagram: 09/18/18 0551 09/18/18 0551 Results 24hrs Laboratory Tests Test 09/17/18 20:17 09/17/18 22:16 09/18/18 02:16 09/18/18 05:51 Bedside Glucose 192 190 Vancomycin Level Trough 23.3 *H White Blood Count 7.6 Red Blood Count 2.63 L Hemoglobin 7.9 L Hematocrit 23.2 L Mean Corpuscular Volume 88.2 Mean Corpuscular 30.0 Hemoglobin Mean Corpuscular 34.1 Hemoglobin Concent Red Cell Distribution 13.5 Width Platelet Count 325 Mean Platelet Volume 8.8 Immature Granulocytes % 0.500 H Neutrophils % 63.9 Lymphocytes % 26.7 Monocytes % 7.0 Eosinophils % 1.6 Basophils % 0.3 Nucleated Red Blood 0.0 Cells % Immature Granulocytes # 0.040 H Neutrophils # 4.9 Lymphocytes # 2.0 Monocytes # 0.5 Eosinophils # 0.1 Basophils # 0.0 Nucleated Red Blood 0.0 Cells # Sodium Level 138 Potassium Level 4.2 Chloride Level 110 Carbon Dioxide Level 21 Anion Gap 7 Blood Urea Nitrogen 32 #H Creatinine 1.18 H Glucose Level 173 Calcium Level 8.8 Phosphorus Level 4.5 Magnesium Level 1.8 Albumin 2.6 L Test 09/18/18 08:40 09/18/18 12:14 09/18/18 17:56 Bedside Glucose 166 196 166 Medications Medication Current Medications IV Flush (NS 3 ml) 3 ml PER PROTOCOL IV ; Start 09/10/18 at 18:30 Ondansetron HCl (Zofran Inj) 4 mg Q6H PRN IV NAUSEA/VOMITING Last administered on 09/11/18 08:08; Admin Dose 4 MG; Start 09/10/18 at 18:30 Acetaminophen (Tylenol Tab) 650 mg Q6H PRN PO .PAIN 1-3 OR TEMP Last adminis tered on 09/15/18 20:28; Admin Dose 650 MG; Start 09/10/18 at 18:30 Acetaminophen/ Hydrocodone Bitart ([place] (5/325)) 1 tab Q6H PRN PO .PAIN 4-6; Start 09/10/18 at 18:30 Diagnostic Test (Pha) (Accu-Chek) 1 ea 02 XX Last administered on 09/17/18 02:17; Admin Dose 1 EA; Start 09/11/18 at 02:00 Insulin Aspart (Novolog Insulin Pen) NOVOLOG *MILD* ALGORITHM WITH MEALS BEDTIME SC Last administered on 09/18/18 18:00; Admin Dose 1 UNIT; Start 09/10/18 at 21:00 Hydralazine HCl (Apresoline) 10 mg Q4H PRN IV sbp >160 Last administered on 09/18/18 15:52; Admin Dose 10 MG; Start 09/10/18 at 18:30 Atorvastatin Calcium (Lipitor) 20 mg QHS PO Last administered on 09/17/18 20:17; Admin Dose 20 MG; Start 09/10/18 at 21:00 Ferrous Sulfate (Ferrous Sulfate (Ec)) 325 mg DAILY PO Last administered on 09/18 08:41; Admin Dose 325 MG; Start 09/11/18 at 09:00 Sodium Hypochlorite (Dakin'S (Dilute )) 1 applic DAILY IRR Last administered on 09/18/18 08:41; Admin Dose 1 APPLIC; Start 09/12/18 at 09:00 Miscellaneous Information 1 ea NOTE XX ; Start 09/13/18 at 18:00 Glucose (Glutose) 15 gm Q15M PRN PO DECREASED GLUCOSE; Start 09/13/18 at 18:00 Glucose (Glutose) 22.5 gm Q15M PRN PO DECREASED GLUCOSE; Start 09/13/18 at 18:00 Dextrose (D50w Syringe) 25 ml Q15M PRN IV DECREASED GLUCOSE; Start 09/13/18 at 18:00 Dextrose (D50w Syringe) 50 ml Q15M PRN IV DECREASED GLUCOSE; Start 09/13/18 at 18:00 Glucagon (Glucagen) 1 mg Q15M PRN IM DECREASED GLUCOSE; Start 09/13/18 at 18:00 Glucose (Glutose) 15 gm Q15M PRN BUCCAL DECREASED GLUCOSE; Start 09/13/18 at 18:00 Insulin Aspart (Novolog Insulin Pen) 4 unit WITH MEALS SC Last administered on 09/18/18 18:00; Admin Dose 4 UNIT; Start 09/14/18 at 12:00 Insulin Glargine (Lantus) 14 units DAILY@2000 SC Last administered on 09/17/18 20:22; Admin Dose 14 UNITS; Start 09/14/18 at 20:00 Morphine Sulfate (morphine) 6 mg Q4H PRN PO SEVERE PAIN LEVEL 7-10; Start 09/15/18 at 15:00 Metoprolol Tartrate (Lopressor) 50 mg BID PO Last administered on 09/18/18 08:4 2; Admin Dose 50 MG; Start 09/17/18 at 09:00 Daptomycin 355 mg/ Sodium Chloride 100 ml @ 200 mls/hr Q24H IVPB Last administered on 09/18/18 15:51; Admin Dose 200 MLS/HR; Start 09/18/18 at 14:00 Sodium Chloride (Deep Sea) 2 spray Q4H PRN NASAL congestion Last administered on 09/18/18 13:06; Admin Dose 2 SPRAY; Start 09/18/18 at 12:30 Benzonatate (Tessalon) 100 mg TID PRN PO cough Last administered on 09/18/18at 13:06; Admin Dose 100 MG; Start 09/18/18 at 12:30 WALTER TIM DPM Sep 18, 2018 19:26
[2018-09-18 20:00] VITALS: BP 170/85; PULSE 99; RESP 18
[2018-09-18] MEDS: ATORVASTATIN 20 MG TAB PO SCH (21:38)
[2018-09-18] MEDS: INSULIN GLARGINE [LANTus] (100 UNITS/ML) SYG SC SCH (21:46)
[2018-09-18] MEDS: ACETAMINOPHEN 325 MG TAB PO PRN (21:49)
[2018-09-19] VITALS (19 sets, daily range): BP systolic 141–189; BP diastolic 65–99; PULSE 76–114; RESP 15–29
[2018-09-19] MEDS: ACCU-CHEK XX SCH (02:00)
[2018-09-19] MEDS: INSULIN ASPART [NOVOLOG] 3 ML PEN SC SCH ×6 (08:00→23:30)
[2018-09-19] MEDS: FERROUS SULFATE (EC) 325 MG TAB PO SCH (08:29)
[2018-09-19] MEDS: SODIUM HYPOCHLORITE (1/40) 1 APPLIC BTL IRR SCH (08:29)
[2018-09-19] MEDS: METOPROLOL 25 MG TAB PO SCH ×2 (08:35→23:30)
[2018-09-19] MEDS: BENZONATATE 100 MG CAP PO PRN (08:35)
--- NOTE | 2018-09-19 08:46 | PN ---
Date/Time of Note Date/Time of Note DATE: 09/19/18 TIME: 08:46 Assessment/Plan VTE Prophylaxis Risk score (from Ns)>0 risk: 2 SCD applied (from Ns): Yes Pharmacological prophylaxis: NA/contraindicated Pharm contraindication: surgical contra Lines/Catheters [facility] [place] Urinary Cath still in place: No Assessment/Plan Assessment/Plan 1. Left foot wound with abscess and osteomyelitis - Plans for debridement and antibiotic spacer today - Podiatry on board and appreciate recommendations - ID on board and appreciate recommendations. Continue on Daptomycin - Acute on chronic left foot wound - arterial studies noted - MRI results noted as well - Wound cultures noted 2. Sepsis secondary to above left foot wound - blood cultures negative - Wound cultures growing MRSA, strep and corynebacterium 3. Anemia, chronic disease - on iron supplements 4. Diabetes Mellitus - Insulin - ISS and accuchecks 5. Hypertension - Continue metoprolol 6. Disposition - Plans for surgical intervention today - continue current antibiotics per ID recommendations Result Diagram: 09/19/18 0535 09/19/18 0535 Results 24hrs Laboratory Tests Test 09/18/18 12:14 09/18/18 17:56 09/18/18 21:45 09/19/18 05:35 Bedside Glucose 196 166 152 White Blood Count 7.5 Red Blood Count 2.69 L Hemoglobin 7.9 L Hematocrit 23.8 L Mean Corpuscular Volume 88.5 Mean Corpuscular 29.4 Hemoglobin Mean Corpuscular 33.2 Hemoglobin Concent Red Cell Distribution 13.6 Width Platelet Count 304 Mean Platelet Volume 8.9 Immature Granulocytes % 0.400 Neutrophils % 61.1 Lymphocytes % 29.8 Monocytes % 6.5 Eosinophils % 1.9 Basophils % 0.3 Nucleated Red Blood 0.0 Cells % Immature Granulocytes # 0.030 Neutrophils # 4.6 Lymphocytes # 2.2 Monocytes # 0.5 Eosinophils # 0.1 Basophils # 0.0 Nucleated Red Blood 0.0 Cells # Sodium Level 142 Potassium Level 3.8 Chloride Level 110 Carbon Dioxide Level 22 Anion Gap 10 Blood Urea Nitrogen 32 H Creatinine 1.17 H Glucose Level 98 # Calcium Level 9.2 Phosphorus Level 4.9 Magnesium Level 1.7 Creatine Kinase 42 Albumin 2.7 L Test 09/19/18 08:19 Bedside Glucose 98 Subjective 24 Hr Interval Summary Free Text/Dictation Patient doing well and denies any acute issues. She is going for debridement this evening. No acute overnight events. Exam/Review of Systems Exam Vitals Vital Signs Date Temp Pulse Resp B/P (MAP) Pulse Ox O2 O2 Flow FiO2 Time Delivery Rate 09/19/18 98.1 99 18 141/65 98 07:44 (90) 09/17/18 Room Air 14:00 Intake and Output 09/18/18 09/18/18 09/19/18 1515:00 23:00 07:00 IntakeIntake Total 1000 ml 1080 ml 240 ml OutputOutput Total 1300 ml 1550 ml 1100 ml BalanceBalance -300 ml -470 ml -860 ml Exam General: Patient is laying in bed and answers questions appropriately Respiratory: Clear to auscultation bilaterally. no wheezing Cardiovascular: regular rate and rhythm, no obvious murmurs Gastrointestinal: soft, non-tender to palpation, bowel sounds heard. Neurological: Moves all extremities spontaneously Skin: Left foot bandaged, LLE warm to touch Results Results 24hrs Laboratory Tests Test 09/18/18 12:14 09/18/18 17:56 09/18/18 21:45 09/19/18 05:35 Bedside Glucose 196 166 152 White Blood Count 7.5 Red Blood Count 2.69 L Hemoglobin 7.9 L Hematocrit 23.8 L Mean Corpuscular Volume 88.5 Mean Corpuscular 29.4 Hemoglobin Mean Corpuscular 33.2 Hemoglobin Concent Red Cell Distribution 13.6 Width Platelet Count 304 Mean Platelet Volume 8.9 Immature Granulocytes % 0.400 Neutrophils % 61.1 Lymphocytes % 29.8 Monocytes % 6.5 Eosinophils % 1.9 Basophils % 0.3 Nucleated Red Blood 0.0 Cells % Immature Granulocytes # 0.030 Neutrophils # 4.6 Lymphocytes # 2.2 Monocytes # 0.5 Eosinophils # 0.1 Basophils # 0.0 Nucleated Red Blood 0.0 Cells # Sodium Level 142 Potassium Level 3.8 Chloride Level 110 Carbon Dioxide Level 22 Anion Gap 10 Blood Urea Nitrogen 32 H Creatinine 1.17 H Glucose Level 98 # Calcium Level 9.2 Phosphorus Level 4.9 Magnesium Level 1.7 Creatine Kinase 42 Albumin 2.7 L Test 09/19/18 08:19 Bedside Glucose 98 Medications Medication Current Medications IV Flush (NS 3 ml) 3 ml PER PROTOCOL IV ; Start 09/10/18 at 18:30 Ondansetron HCl (Zofran Inj) 4 mg Q6H PRN IV NAUSEA/VOMITING Last administered on 09/11/18 08:08; Admin Dose 4 MG; Start 09/10/18 at 18:30 Acetaminophen (Tylenol Tab) 650 mg Q6H PRN PO .PAIN 1-3 OR TEMP Last administered on 09/18/18 21:49; Admin Dose 650 MG; Start 09/10/18 at 18:30 Acetaminophen/ Hydrocodone Bitart ([place] (5/325)) 1 tab Q6H PRN PO .PAIN 4-6; Start 09/10/18 at 18:30 Diagnostic Test (Pha) (Accu-Chek) 1 ea 02 XX Last administered on 09/17/18 02:17; Admin Dose 1 EA; Start 09/11/18 at 02:00 Insulin Aspart (Novolog Insulin Pen) NOVOLOG *MILD* ALGORITHM WITH MEALS BEDTIME SC Last administered on 09/18/18 18:00; Admin Dose 1 UNIT; Start 09/10/18 at 21:00 Hydralazine HCl (Apresoline) 10 mg Q4H PRN IV sbp >160 Last administered on 09/18/18 15:52; Admin Dose 10 MG; Start 09/10/18 at 18:30 Atorvastatin Calcium (Lipitor) 20 mg QHS PO Last administered on 09/18/18 21:38; Admin Dose 20 MG; Start 09/10/18 at 21:00 Ferrous Sulfate (Ferrous Sulfate (Ec)) 325 mg DAILY PO Last administered on 09/19/18 08:29; Admin Dose 325 MG; Start 09/11/18 at 09:00 Sodium Hypochlorite (Dakin'S (Dilute )) 1 applic DAILY IRR Last administered on 09/18/18 08:41; Admin Dose 1 APPLIC; Start 09/12/18 at 09:00 Miscellaneous Information 1 ea NOTE XX ; Start 09/13/18 at 18:00 Glucose (Glutose) 15 gm Q15M PRN PO DECREASED GLUCOSE; Start 09/13/18 at 18:00 Glucose (Glutose) 22.5 gm Q15M PRN PO DECREASED GLUCOSE; Start 09/13/18 at 18:00 Dextrose (D50w Syringe) 25 ml Q15M PRN IV DECREASED GLUCOSE; Start 09/13/18 at 18:00 Dextrose (D50w Syringe) 50 ml Q15M PRN IV DECREASED GLUCOSE; Start 09/13/18 at 18:00 Glucagon (Glucagen) 1 mg Q15M PRN IM DECREASED GLUCOSE; Start 09/13/18 at 18:00 Glucose (Glutose) 15 gm Q15M PRN BUCCAL DECREASED GLUCOSE; Start 09/13/18 at 18:00 Insulin Aspart (Novolog Insulin Pen) 4 unit WITH MEALS SC Last administered on 09/19/18 08:36; Admin Dose 4 UNIT; Start 09/14/18 at 12:00 Insulin Glargine (Lantus) 14 units DAILY@2000 SC Last administered on 09/18/18 21:46; Admin Dose 14 UNITS; Start 09/14/18 at 20:00 Morphine Sulfate (morphine) 6 mg Q4H PRN PO SEVERE PAIN LEVEL 7-10; Start 09/15/18 at 15:00 Metoprolol Tartrate (Lopressor) 50 mg BID PO Last administered on 09/19/18 08:35; Admin Dose 50 MG; Start 09/17/18 at 09:00 Daptomycin 355 mg/ Sodium Chloride 100 ml @ 200 mls/hr Q24H IVPB Last administered on 09/18/18 15:51; Admin Dose 200 MLS/HR; Start 09/18/18 at 14:00 Sodium Chloride ([place]) 2 spray Q4H PRN NASAL congestion Last administered on 09/18/18 13:06; Admin Dose 2 SPRAY; Start 09/18/18 at 12:30 Benzonatate (Tessalon) 100 mg TID PRN PO cough Last administered on 09/19/18 08:35; Admin Dose 100 MG; Start 09/18/18 at 12:30 ANTONIO VITAL MD Sep 19, 2018 08:46
--- NOTE | 2018-09-19 11:27 | CONS ---
Assessment/Plan Assessment/Plan Hospital Course (Demo Recall) All noted, no acute events over night, no fevers Antimicrobials: Daptomycin Chest x-ray revealed no acute disease. Arterial study of left lower extremity showed inflow disease due to upstream stenosis Microbiology: Left ankle wound culture growing Corynebacterium, strep pyogenous and MRSA PHYSICAL EXAMINATION: GENERAL: This is a well-developed middle-aged woman who is in no distress. HEENT: Head is atraumatic, normocephalic. NECK: Supple. CHEST: Rise symmetrical. Breath sounds diminished to bases. HEART: S1, S2. ABDOMEN: Soft. Bowel tones present. EXTREMITIES: Left lower extremity dressing intact ASSESSMENT: 1. S/p sepsis secondary to #2 2. Left foot cellulitis, abscess, osteomyelitis, status post multiple incision and drainage/ skin graft 3. Diabetes 4. Diabetic neuropathy/PAD. 5. Anemia. PLAN: Stable, continue abx, follow podiatry recommendations==> pending left foot wound debridement, with removal of infected bone and application of antibiotic spacer with left 2nd digit amputation Consultation Date/Type/Reason Admit Date/Time Sep 10, 2018 at 18:26 Initial Consult Date Type of Consult id Date/Time of Note DATE: 09/19/18 TIME: 11:26 Exam/Review of Systems Exam Vitals Vital Signs Date Temp Pulse Resp B/P (MAP) Pulse Ox O2 O2 Flow FiO2 Time Delivery Rate 09/19/18 98.1 99 18 141/65 98 07:44 (90) 09/17/18 Room Air 14:00 Intake and Output 09/18/18 09/18/18 09/19/18 1515:00 23:00 07:00 IntakeIntake Total 1000 ml 1080 ml 240 ml OutputOutput Total 1300 ml 1550 ml 1100 ml BalanceBalance -300 ml -470 ml -860 ml Results Result Diagram: 09/19/18 0535 09/19/18 0535 Results 24hrs Laboratory Tests Test 09/18/18 12:14 09/18/18 17:56 09/18/18 21:45 09/19/18 05:35 Bedside Glucose 196 166 152 White Blood Count 7.5 Red Blood Count 2.69 L Hemoglobin 7.9 L Hematocrit 23.8 L Mean Corpuscular Volume 88.5 Mean Corpuscular 29.4 Hemoglobin Mean Corpuscular 33.2 Hemoglobin Concent Red Cell Distribution 13.6 Width Platelet Count 304 Mean Platelet Volume 8.9 Immature Granulocytes % 0.400 Neutrophils % 61.1 Lymphocytes % 29.8 Monocytes % 6.5 Eosinophils % 1.9 Basophils % 0.3 Nucleated Red Blood 0.0 Cells % Immature Granulocytes # 0.030 Neutrophils # 4.6 Lymphocytes # 2.2 Monocytes # 0.5 Eosinophils # 0.1 Basophils # 0.0 Nucleated Red Blood 0.0 Cells # Sodium Level 142 Potassium Level 3.8 Chloride Level 110 Carbon Dioxide Level 22 Anion Gap 10 Blood Urea Nitrogen 32 H Creatinine 1.17 H Glucose Level 98 # Calcium Level 9.2 Phosphorus Level 4.9 Magnesium Level 1.7 Creatine Kinase 42 Albumin 2.7 L Test 09/19/18 08:19 Bedside Glucose 98 Medications Medication Current Medications IV Flush (NS 3 ml) 3 ml PER PROTOCOL IV ; Start 09/10/18 at 18:30 Ondansetron HCl (Zofran Inj) 4 mg Q6H PRN IV NAUSEA/VOMITING Last administered on 09/11/18 08:08; Admin Dose 4 MG; Start 09/10/18 at 18:30 Acetaminophen (Tylenol Tab) 650 mg Q6H PRN PO .PAIN 1-3 OR TEMP Last administered on 09/18/18 21:49; Admin Dose 650 MG; Start 09/10/18 at 18:30 Acetaminophen/ Hydrocodone Bitart ([place] (5/325)) 1 tab Q6H PRN PO .PAIN 4-6; Start 09/10/18 at 18:30 Diagnostic Test (Pha) (Accu-Chek) 1 ea 02 XX Last administered on 09/17/18 02:17; Admin Dose 1 EA; Start 09/11/18 at 02:00 Insulin Aspart (Novolog Insulin Pen) NOVOLOG *MILD* ALGORITHM WITH MEALS BEDTIME SC Last administered on 09/18/18 18:00; Admin Dose 1 UNIT; Start 09/10/18 at 21:00 Hydralazine HCl (Apresoline) 10 mg Q4H PRN IV sbp >160 Last administered on 09/18/18 15:52; Admin Dose 10 MG; Start 09/10/18 at 18:30 Atorvastatin Calcium (Lipitor) 20 mg QHS PO Last administered on 09/18/18 21:38; Admin Dose 20 MG; Start 09/10/18 at 21:00 Ferrous Sulfate (Ferrous Sulfate (Ec)) 325 mg DAILY PO Last administered on 09/19/18 08:29; Admin Dose 325 MG; Start 09/11/18 at 09:00 Sodium Hypochlorite (Dakin'S (Dilute )) 1 applic DAILY IRR Last administered on 09/18/18 08:41; Admin Dose 1 APPLIC; Start 09/12/18 at 09:00 Miscellaneous Information 1 ea NOTE XX ; Start 09/13/18 at 18:00 Glucose (Glutose) 15 gm Q15M PRN PO DECREASED GLUCOSE; Start 09/13/18 at 18:00 Glucose (Glutose) 22.5 gm Q15M PRN PO DECREASED GLUCOSE; Start 09/13/18 at 18:00 Dextrose (D50w Syringe) 25 ml Q15M PRN IV DECREASED GLUCOSE; Start 09/13/18 at 18:00 Dextrose (D50w Syringe) 50 ml Q15M PRN IV DECREASED GLUCOSE; Start 09/13/18 at 18:00 Glucagon (Glucagen) 1 mg Q15M PRN IM DECREASED GLUCOSE; Start 09/13/18 at 18:00 Glucose (Glutose) 15 gm Q15M PRN BUCCAL DECREASED GLUCOSE; Start 09/13/18 at 18:00 Insulin Aspart (Novolog Insulin Pen) 4 unit WITH MEALS SC Last administered on 09/19/18at 08:36; Admin Dose 4 UNIT; Start 09/14/18 at 12:00 Insulin Glargine (Lantus) 14 units DAILY@2000 SC Last administered on 09/18/18 21:46; Admin Dose 14 UNITS; Start 09/14/18 at 20:00 Morphine Sulfate (morphine) 6 mg Q4H PRN PO SEVERE PAIN LEVEL 7-10; Start 09/15/18 at 15:00 Metoprolol Tartrate (Lopressor) 50 mg BID PO Last administered on 09/19/18 08:35; Admin Dose 50 MG; Start 09/17/18 at 09:00 Daptomycin 355 mg/ Sodium Chloride 100 ml @ 200 mls/hr Q24H IVPB Last administered on 09/18/18at 15:51; Admin Dose 200 MLS/HR; Start 09/18/18 at 14:00 Sodium Chloride ([place]) 2 spray Q4H PRN NASAL congestion Last administered on 09/18/18at 13:06; Admin Dose 2 SPRAY; Start 09/18/18 at 12:30 Benzonatate (Tessalon) 100 mg TID PRN PO cough Last administered on 09/19/18at 08:35; Admin Dose 100 MG; Start 09/18/18 at 12:30 TRINY TUCKER NP Sep 19, 2018 11:27
[2018-09-19] MEDS: DEXTROSE 5%-0.45% NACL 1,000 ML IV SCH (13:36)
[2018-09-19] MEDS: hydrALAzine 20 MG INJ IV PRN (14:29)
[2018-09-19] MEDS: DAPTOMYCIN IVPB SCH (14:30)
[2018-09-19] MEDS: SOD CHLORIDE 0.9% IVPB SCH (14:30)
[2018-09-19] MEDS ORDERED: LIDOCAINE 1% (MPF) 30 ML INJ ONE (19:54)
[2018-09-19] MEDS ORDERED: POLYMYXIN/BACITRACIN 1L IRRIG ONE (19:54)
[2018-09-19] MEDS ORDERED: POLYMYXIN B 500000 UNIT INJ ONE (19:54)
[2018-09-19] MEDS ORDERED: PROPOFOL 20 ML ONE (19:56)
[2018-09-19] MEDS ORDERED: LIDOCAINE 2% (SDV) 5 ML INJ ONE (19:56)
[2018-09-19] MEDS ORDERED: BACITRACIN 50000 UNITS INJ ONE (19:58)
[2018-09-19] MEDS ORDERED: EPHEDrine 50 MG INJ ONE (21:23)
[2018-09-19] MEDS ORDERED: FENTAnyl 50 MCG/ML VIAL ONE (21:28)
[2018-09-19] MEDS: ONDANSETRON 4 MG INJ IV PRN (21:57)
[2018-09-19] MEDS ORDERED: LABETALOL HCL 20MG INJ IV PRN (22:00)
[2018-09-19] MEDS ORDERED: METOCLOPRAMIDE 10 MG INJ IV PRN (22:00)
[2018-09-19] MEDS ORDERED: MEPERIDINE 25 MG INJ IV PRN (22:00)
[2018-09-19] MEDS ORDERED: ONDANSETRON 4 MG INJ IV PRN (22:00)
[2018-09-19] MEDS ORDERED: hydrALAzine 20 MG INJ IV PRN (22:00)
[2018-09-19] MEDS ORDERED: DIPHENHYDRAMINE 50 MG INJ IV PRN (22:00)
[2018-09-19] MEDS ORDERED: MIDAZOLAM 1 MG/ML 2 ML INJ IV PRN (22:00)
[2018-09-19] MEDS ORDERED: HYDROmorphONE 1 MG/5 ML IV SYRINGE IV PRN ×3 (22:00)
[2018-09-19] MEDS ORDERED: OXYCODONE/ACETAMINOPHEN (5/325) TAB PO PRN ×2 (22:00)
[2018-09-19] MEDS ORDERED: FENTAnyl 50 MCG/ML VIAL IV PRN ×3 (22:00)
[2018-09-19] MEDS ORDERED: EPHEDrine SULFATE 50 MG/5 ML SYG IV PRN (22:00)
[2018-09-19] MEDS ORDERED: LABETALOL HCL 20MG INJ ONE (22:02)
[2018-09-19] MEDS: ATORVASTATIN 20 MG TAB PO SCH (23:30)
[2018-09-19] MEDS: INSULIN GLARGINE [LANTus] (100 UNITS/ML) SYG SC SCH (23:34)
[2018-09-20] VITALS (8 sets, daily range): BP systolic 142–186; BP diastolic 72–94; PULSE 88–112; RESP 17–18
[2018-09-20] MEDS: ACCU-CHEK XX SCH (01:49)
[2018-09-20] MEDS: hydrALAzine 20 MG INJ IV PRN ×2 (02:11→15:37)
[2018-09-20] MEDS: DEXTROSE 5%-0.45% NACL 1,000 ML IV SCH (03:48)
--- NOTE | 2018-09-20 08:25 | PN ---
Date/Time of Note Date/Time of Note DATE: 09/20/18 TIME: 08:25 Assessment/Plan VTE Prophylaxis Risk score (from Ns)>0 risk: 2 [place] [facility] [place] contraindicated: other Pharmacological prophylaxis: NA/contraindicated Pharm contraindication: bleeding Lines/Catheters IV [facility] Type (from [facility]): Peripheral IV Urinary Cath still in place: No Assessment/Plan Assessment/Plan 1. Left foot wound with abscess and osteomyelitis s/p debridement and antibiotic spacer placement - Patient tolerated procedures well 09/19/18 - Podiatry on board and appreciate recommendations. Continue current care - ID on board and appreciate recommendations. Continue on Daptomycin - Acute on chronic left foot wound - arterial studies noted - MRI results noted as well - Wound cultures noted 2. Sepsis secondary to above left foot wound - blood cultures negative - Wound cultures growing MRSA, strep and corynebacterium 3. Anemia, chronic disease - on iron supplements 4. Diabetes Mellitus - Insulin - ISS and accuchecks 5. Hypertension - Will increase metoprolol to 100mg BID and monitor for improvement in HR and BP 6. Disposition - Will adjust BB given elevated HR and BP - Continue current care Result Diagram: 09/19/18 0535 09/19/18 0535 Results 24hrs Laboratory Tests Test 09/19/18 13:18 09/19/18 17:35 09/19/18 22:14 09/19/18 23:29 Bedside Glucose 138 121 119 118 Subjective 24 Hr Interval Summary Free Text/Dictation Patient complaining of itching under LLE cast and requesting benadryl for relief. She is also concerned about elevated BP this am and discussed adjusting medications as needed. Exam/Review of Systems Exam Vitals Vital Signs Date Temp Pulse Resp B/P (MAP) Pulse Ox O2 O2 Flow FiO2 Time Delivery Rate 09/20/18 17 142/79 03:39 (100) 09/20/18 97.8 104 96 02:17 09/19/18 Room Air 22:33 09/19/18 8.0 21:53 Intake and Output 09/19/18 09/19/18 09/20/18 1515:00 23:00 07:00 IntakeIntake Total 100 ml 850 ml 200 ml OutputOutput Total 800 ml 20 ml BalanceBalance -700 ml 830 ml 200 ml Exam General: Patient is laying in bed and answers questions appropriately Respiratory: Clear to auscultation bilaterally. no wheezing Cardiovascular: regular rate and rhythm, no obvious murmurs Gastrointestinal: soft, non-tender to palpation, bowel sounds heard. Neurological: Moves all extremities spontaneously Skin: Left cast in place up to knee. Results Results 24hrs Laboratory Tests Test 09/19/18 13:18 09/19/18 17:35 09/19/18 22:14 09/19/18 23:29 Bedside Glucose 138 121 119 118 Medications Medication Current Medications IV Flush (NS 3 ml) 3 ml PER PROTOCOL IV ; Start 09/10/18 at 18:30 Ondansetron HCl (Zofran Inj) 4 mg Q6H PRN IV NAUSEA/VOMITING Last administered on 09/19/18 21:57; Admin Dose 4 MG; Start 09/10/18 at 18:30 Acetaminophen (Tylenol Tab) 650 mg Q6H PRN PO .PAIN 1-3 OR TEMP Last administered on 09/18/18 21:49; Admin Dose 650 MG; Start 09/10/18 at 18:30 Acetaminophen/ Hydrocodone Bitart ([place] (5/325)) 1 tab Q6H PRN PO .PAIN 4-6; Start 09/10/18 at 18:30 Diagnostic Test (Pha) (Accu-Chek) 1 ea 02 XX Last administered on 09/17/18 02:17; Admin Dose 1 EA; Start 09/11/18 at 02:00 Insulin Aspart (Novolog Insulin Pen) NOVOLOG *MILD* ALGORITHM WITH MEALS BEDTIME SC Last administered on 09/18/18 18:00; Admin Dose 1 UNIT; Start 09/10/18 at 21:00 Hydralazine HCl (Apresoline) 10 mg Q4H PRN IV sbp >160 Last administered on 09/20/18 02:11; Admin Dose 10 MG; Start 09/10/18 at 18:30 Atorvastatin Calcium (Lipitor) 20 mg QHS PO Last administered on 09/18/18 21:38; Admin Dose 20 MG; Start 09/10/18 at 21:00 Ferrous Sulfate (Ferrous Sulfate (Ec)) 325 mg DAILY PO Last administered on 09/19/18 08:29; Admin Dose 325 MG; Start 09/11/18 at 09:00 Sodium Hypochlorite (Dakin'S (Dilute )) 1 applic DAILY IRR Last administered on 09/18/18 08:41; Admin Dose 1 APPLIC; Start 09/12/18 at 09:00; Status Hold Miscellaneous Information 1 ea NOTE XX ; Start 09/13/18 at 18:00 Glucose (Glutose) 15 gm Q15M PRN PO DECREASED GLUCOSE; Start 09/13/18 at 18:00 Glucose (Glutose) 22.5 gm Q15M PRN PO DECREASED GLUCOSE; Start 09/13/18 at 18:00 Dextrose (D50w Syringe) 25 ml Q15M PRN IV DECREASED GLUCOSE; Start 09/13/18 at 18:00 Dextrose (D50w Syringe) 50 ml Q15M PRN IV DECREASED GLUCOSE; Start 09/13/18 at 18:00 Glucagon (Glucagen) 1 mg Q15M PRN IM DECREASED GLUCOSE; Start 09/13/18 at 18:00 Glucose (Glutose) 15 gm Q15M PRN BUCCAL DECREASED GLUCOSE; Start 09/13/18 at 18:00 Insulin Aspart (Novolog Insulin Pen) 4 unit WITH MEALS SC Last administered on 09/19/18 08:36; Admin Dose 4 UNIT; Start 09/14/18 at 12:00; Status Hold Insulin Glargine (Lantus) 14 units DAILY@2000 SC Last administered on 09/19/18 23:34; Admin Dose 14 UNITS; Start 09/14/18 at 20:00 Morphine Sulfate (morphine) 6 mg Q4H PRN PO SEVERE PAIN LEVEL 7-10; Start 09/15/18 at 15:00 Metoprolol Tartrate (Lopressor) 50 mg BID PO Last administered on 09/19/18 08:35; Admin Dose 50 MG; Start 09/17/18 at 09:00 Daptomycin 355 mg/ Sodium Chloride 100 ml @ 200 mls/hr Q24H IVPB Last administered on 09/19/18 14:30; Admin Dose 200 MLS/HR; Start 09/18/18 at 14:00 Sodium Chloride (Deep Sea) 2 spray Q4H PRN NASAL congestion Last administered on 09/18/18 13:06; Admin Dose 2 SPRAY; Start 09/18/18 at 12:30 Benzonatate (Tessalon) 100 mg TID PRN PO cough Last administered on 09/19/18 08:35; Admin Dose 100 MG; Start 09/18/18 at 12:30 Dextrose/Sodium Chloride 1,000 ml @ 70 mls/hr [id number] IV Last administered on 09/19/18at 13:36; Admin Dose 70 MLS/HR; Start 09/19/18 at 13:30 ANTONIO VITAL MD Sep 20, 2018 08:25
[2018-09-20] MEDS: INSULIN ASPART [NOVOLOG] 3 ML PEN SC SCH ×4 (08:45→20:42)
[2018-09-20] MEDS: FERROUS SULFATE (EC) 325 MG TAB PO SCH (08:47)
[2018-09-20] MEDS: ACETAMINOPHEN 325 MG TAB PO PRN (08:48)
[2018-09-20] MEDS: ONDANSETRON 4 MG INJ IV PRN (08:48)
[2018-09-20] MEDS: METOPROLOL 25 MG TAB PO SCH (08:50)
[2018-09-20] MEDS: DIPHENHYDRAMINE 50 MG INJ IV PRN (09:45)
[2018-09-20] MEDS: BENZONATATE 100 MG CAP PO PRN (09:45)
--- NOTE | 2018-09-20 11:25 | PAC ---
Date/Time of Note Date/Time of Note DATE: 09/20/18 TIME: 11:24 Post-Anesthesia Notes Post-Anesthesia Note Last documented vital signs Vital Signs Date Temp Pulse Resp B/P (MAP) Pulse Ox O2 O2 Flow FiO2 Time Delivery Rate 09/20/18 97.7 112 17 173/88 96 08:58 (116) 09/19/18 Room Air 22:33 09/19/18 8.0 21:53 Activity: WNL Respiratory function: WNL Cardiovascular function: WNL Mental status: Baseline Pain reasonably controlled: Yes Hydration appropriate: Yes Nausea/Vomiting absent: Yes WINSOME CEDILLO MD Sep 20, 2018 11:25
--- NOTE | 2018-09-20 14:24 | CONS ---
Consultation Date/Type/Reason Admit Date/Time Sep 10, 2018 at 18:26 Initial Consult Date SUBJECTIVE: Pt is sleepy, afberile, S/P Lt foot debridement. Dressing clean, dry, and intact. Vs: stable T: 97.7 LABS: Reviewed. Antimicrobials: Daptomycin Chest x-ray revealed no acute disease. Arterial study of left lower extremity showed inflow disease due to upstream stenosis Microbiology: Left ankle wound culture growing Corynebacterium, strep pyogenous and MRSA PHYSICAL EXAMINATION: GENERAL: This is a well-developed middle-aged woman who is in no distress. HEENT: Head is atraumatic, normocephalic. NECK: Supple. CHEST: Rise symmetrical. Breath sounds diminished to bases. HEART: S1, S2. ABDOMEN: Soft. Bowel tones present. EXTREMITIES: Left lower extremity dressing intact ASSESSMENT: 1. S/p sepsis secondary to #2 2. Left foot cellulitis, abscess, osteomyelitis, status post multiple incision and drainage/ skin graft 3. Diabetes 4. Diabetic neuropathy/PAD. 5. Anemia. PLAN: Pt is stable. Continue current abx, . Wound care and podiatry recommendations. Date/Time of Note DATE: 09/20/18 TIME: 14:22 Exam/Review of Systems Exam Vitals Vital Signs Date Temp Pulse Resp B/P (MAP) Pulse Ox O2 O2 Flow FiO2 Time Delivery Rate 09/20/18 97.7 112 17 173/88 96 08:58 (116) 09/19/18 Room Air 22:33 09/19/18 8.0 21:53 Intake and Output 09/19/18 09/19/18 09/20/18 1515:00 23:00 07:00 IntakeIntake Total 100 ml 850 ml 200 ml OutputOutput Total 800 ml 20 ml BalanceBalance -700 ml 830 ml 200 ml Results Result Diagram: 09/19/18 0535 09/19/18 0535 Results 24hrs Laboratory Tests Test 09/19/18 17:35 09/19/18 22:14 09/19/18 23:29 09/20/18 08:31 Bedside Glucose 121 119 118 168 Test 09/20/18 12:47 Bedside Glucose 240 H Medications Medication Current Medications IV Flush (NS 3 ml) 3 ml PER PROTOCOL IV ; Start 09/10/18 at 18:30 Ondansetron HCl (Zofran Inj) 4 mg Q6H PRN IV NAUSEA/VOMITING Last administered on 09/20/18 08:48; Admin Dose 4 MG; Start 09/10/18 at 18:30 Acetaminophen (Tylenol Tab) 650 mg Q6H PRN PO .PAIN 1-3 OR TEMP Last administered on 09/20/18 08:48; Admin Dose 650 MG; Start 09/10/18 at 18:30 Acetaminophen/ Hydrocodone Bitart ([place] (5/325)) 1 tab Q6H PRN PO .PAIN 4-6; Start 09/10/18 at 18:30 Insulin Aspart (Novolog Insulin Pen) NOVOLOG *MILD* ALGORITHM WITH MEALS BEDTIME SC Last administered on 09/20/18 12:50; Admin Dose 3 UNIT; Start 08/16 01/30 at 21:00 Hydralazine HCl (Apresoline) 10 mg Q4H PRN IV sbp >160 Last administered on 09/20/18 02:11; Admin Dose 10 MG; Start 09/10/18 at 18:30 Atorvastatin Calcium (Lipitor) 20 mg QHS PO Last administered on 09/18/18 21:38; Admin Dose 20 MG; Start 09/10/18 at 21:00 Ferrous Sulfate (Ferrous Sulfate (Ec)) 325 mg DAILY PO Last administered on 09/20/18 08:47; Admin Dose 325 MG; Start 09/11/18 at 09:00 Sodium Hypochlorite (Dakin'S (Dilute )) 1 applic DAILY IRR Last administered on 09/18/18 08:41; Admin Dose 1 APPLIC; Start 09/12/18 at 09:00; Status Hold Miscellaneous Information 1 ea NOTE XX ; Start 09/13/18 at 18:00 Glucose (Glutose) 15 gm Q15M PRN PO DECREASED GLUCOSE; Start 09/13/18 at 18:00 Glucose (Glutose) 22.5 gm Q15M PRN PO DECREASED GLUCOSE; Start 09/13/18 at 18:00 Dextrose (D50w Syringe) 25 ml Q15M PRN IV DECREASED GLUCOSE; Start 09/13/18 at 18:00 Dextrose (D50w Syringe) 50 ml Q15M PRN IV DECREASED GLUCOSE; Start 09/13/18 at 18:00 Glucagon (Glucagen) 1 mg Q15M PRN IM DECREASED GLUCOSE; Start 09/13/18 at 18:00 Glucose (Glutose) 15 gm Q15M PRN BUCCAL DECREASED GLUCOSE; Start 09/13/18 at 18:00 Insulin Aspart (Novolog Insulin Pen) 4 unit WITH MEALS SC Last administered on 09/19/18 08:36; Admin Dose 4 UNIT; Start 09/14/18 at 12:00; Status Hold Insulin Glargine (Lantus) 14 units DAILY@2000 SC Last administered on 09/19/18 23:34; Admin Dose 14 UNITS; Start 09/14/18 at 20:00 Morphine Sulfate (morphine) 6 mg Q4H PRN PO SEVERE PAIN LEVEL 7-10; Start 09/15/18 at 15:00 Daptomycin 355 mg/ Sodium Chloride 100 ml @ 200 mls/hr Q24H IVPB Last administered on 09/19/18 14:30; Admin Dose 200 MLS/HR; Start 09/18/18 at 14:00 Benzonatate (Tessalon) 100 mg TID PRN PO cough Last administered on 09/20/18 09:45; Admin Dose 100 MG; Start 09/18/18 at 12:30 Diphenhydramine HCl (Benadryl) 25 mg Q6H PRN IV itching Last administered on 09/20/18 09:45; Admin Dose 25 MG; Start 09/20/18 at 09:00 Glipizide (Glucotrol) 5 mg AC BREAKFAST PO ; Start 09/21/18 at 07:00 Sodium Chloride (Deep Sea) 2 spray Q6H NASAL ; Start 09/20/18 at 18:30 Metoprolol Tartrate (Lopressor) 100 mg BID PO ; Start 09/20/18 at 21:00 WILBER SHEPPARD Sep 20, 2018 14:24
[2018-09-20] MEDS: SOD CHLORIDE 0.9% IVPB SCH (15:37)
[2018-09-20] MEDS: DAPTOMYCIN IVPB SCH (15:37)
[2018-09-20] MEDS: SALINE 0.65% 45 ML NAS SPRAY NASAL SCH (17:38)
--- NOTE | 2018-09-20 18:29 | CONS ---
Assessment/Plan Assessment/Plan Assessment/Plan (Daily) Left foot diabetic ulcer s/p excisional debridement, 2nd partial ray amputation, abx spacer and pin placement (DOS: 09/19/18) Left foot cellulitis Left foot abscess Left foot osteomyelitis Left lower extremity failed graft site DM2 with peripheral neuropathy PAD Plan Keep cast clean dry and intact, non weight bearing to left lower extremity. Patient had adamantly refused a below knee amputation. It was discussed with the patient that there is poor prognosis. Patient is very likely to have a chopart amputation which may be her best option in terms of limb salvage. Her midfoot has displayed instability with limited dorsiflexion and there is absent dorsiflexion and plantar flexion to the digits. MRI was reviewed and there is signs of osteomyelitis to the midfoot and to digits. Wound cultures showing mixed organism growth. Offload and elevate cast with pillows. Consultation Date/Type/Reason Admit Date/Time Sep 10, 2018 at 18:26 Initial Consult Date Date/Time of Note DATE: 09/20/18 TIME: 18:29 24 HR Interval Summary Free Text/Dictation No acute events overnight Exam/Review of Systems Exam Vitals Vital Signs Date Temp Pulse Resp B/P (MAP) Pulse Ox O2 O2 Flow FiO2 Time Delivery Rate 09/20/18 98.4 88 17 169/79 96 15:19 (109) 09/19/18 Room Air 22:33 09/19/18 8.0 21:53 Intake and Output 09/19/18 09/19/18 09/20/18 1515:00 23:00 07:00 IntakeIntake Total 100 ml 850 ml 200 ml OutputOutput Total 800 ml 20 ml BalanceBalance -700 ml 830 ml 200 ml Exam Cast is clean dry and intact without strikethrough drainage, no proximal streaking no foul odor Hallux pin in place without loosening no ischemic changes noted. Results Result Diagram: 09/19/18 0535 09/19/18 0535 Results 24hrs Laboratory Tests Test 09/19/18 22:14 09/19/18 23:29 09/20/18 08:31 09/20/18 12:47 Bedside Glucose 119 118 168 240 H Test 09/20/18 17:39 Bedside Glucose 232 H Medications Medication Current Medications IV Flush (NS 3 ml) 3 ml PER PROTOCOL IV ; Start 09/10/18 at 18:30 Ondansetron HCl (Zofran Inj) 4 mg Q6H PRN IV NAUSEA/VOMITING Last administered on 09/20/18 08:48; Admin Dose 4 MG; Start 09/10/18 at 18:30 Acetaminophen (Tylenol Tab) 650 mg Q6H PRN PO .PAIN 1-3 OR TEMP Last administered on 09/20/18 08:48; Admin Dose 650 MG; Start 09/10/18 at 18:30 Acetaminophen/ Hydrocodone Bitart ([place] (5/325)) 1 tab Q6H PRN PO .PAIN 4-6; Start 09/10/18 at 18:30 Insulin Aspart (Novolog Insulin Pen) NOVOLOG *MILD* ALGORITHM WITH MEALS BEDTIME SC Last administered on 09/20/18 17:42; Admin Dose 3 UNIT; Start at 21:00 Hydralazine HCl (Apresoline) 10 mg Q4H PRN IV sbp >160 Last administered on 09/20/18 15:37; Admin Dose 10 MG; Start 09/10/18 at 18:30 Atorvastatin Calcium (Lipitor) 20 mg QHS PO Last administered on 09/18/18 21:38; Admin Dose 20 MG; Start 09/10/18 at 21:00 Ferrous Sulfate (Ferrous Sulfate (Ec)) 325 mg DAILY PO Last administered on 09/20/18 08:47; Admin Dose 325 MG; Start 09/11/18 at 09:00 Sodium Hypochlorite (Dakin'S (Dilute )) 1 applic DAILY IRR Last administered on 09/18/18 08:41; Admin Dose 1 APPLIC; Start 09/12/18 at 09:00; Status Hold Miscellaneous Information 1 ea NOTE XX ; Start 09/13/18 at 18:00 Glucose (Glutose) 15 gm Q15M PRN PO DECREASED GLUCOSE; Start 09/13/18 at 18:00 Glucose (Glutose) 22.5 gm Q15M PRN PO DECREASED GLUCOSE; Start 09/13/18 at 18:00 Dextrose (D50w Syringe) 25 ml Q15M PRN IV DECREASED GLUCOSE; Start 09/13/18 at 18:00 Dextrose (D50w Syringe) 50 ml Q15M PRN IV DECREASED GLUCOSE; Start 09/13/18 at 18:00 Glucagon (Glucagen) 1 mg Q15M PRN IM DECREASED GLUCOSE; Start 09/13/18 at 18:00 Glucose (Glutose) 15 gm Q15M PRN BUCCAL DECREASED GLUCOSE; Start 09/13/18 at 18:00 Insulin Aspart (Novolog Insulin Pen) 4 unit WITH MEALS SC Last administered on 09/19/18 08:36; Admin Dose 4 UNIT; Start 09/14/18 at 12:00; Status Hold Insulin Glargine (Lantus) 14 units DAILY@2000 SC Last administered on 09/19/18 23:34; Admin Dose 14 UNITS; Start 09/14/18 at 20:00 Morphine Sulfate (morphine) 6 mg Q4H PRN PO SEVERE PAIN LEVEL 7-10; Start 09/15/18 at 15:00 Daptomycin 355 mg/ Sodium Chloride 100 ml @ 200 mls/hr Q24H IVPB Last administered on 09/20/18 15:37; Admin Dose 200 MLS/HR; Start 09/18/18 at 14:00 Benzonatate (Tessalon) 100 mg TID PRN PO cough Last administered on 09/20/18 09:45; Admin Dose 100 MG; Start 09/18/18 at 12:30 Diphenhydramine HCl (Benadryl) 25 mg Q6H PRN IV itching Last administered on 09/20/18 09:45; Admin Dose 25 MG; Start 09/20/18 at 09:00 Glipizide (Glucotrol) 5 mg AC BREAKFAST PO ; Start 09/21/18 at 07:00 Sodium Chloride (Deep Sea) 2 spray Q6H NASAL Last administered on 09/20/18 17:38; Admin Dose 2 SPRAY; Start 09/20/18 at 18:30 Metoprolol Tartrate (Lopressor) 100 mg BID PO ; Start 09/20/18 at 21:00 WALTER TIM DPM Sep 20, 2018 18:29
[2018-09-20] MEDS: INSULIN GLARGINE [LANTus] (100 UNITS/ML) SYG SC SCH (20:41)
[2018-09-20] MEDS: ATORVASTATIN 20 MG TAB PO SCH (20:42)
[2018-09-20] MEDS: METOPROLOL 100 MG TAB PO SCH (20:43)
[2018-09-21] MEDS: SALINE 0.65% 45 ML NAS SPRAY NASAL SCH ×4 (00:30→17:30)
[2018-09-21 02:00] VITALS: BP 124/58; PULSE 85; RESP 18
[2018-09-21] MEDS: INSULIN ASPART [NOVOLOG] 3 ML PEN SC SCH ×4 (08:00→20:18)
[2018-09-21 08:23] VITALS: BP 162/82; PULSE 91; RESP 18
[2018-09-21] MEDS: BENZONATATE 100 MG CAP PO PRN (08:24)
[2018-09-21] MEDS: METOPROLOL 100 MG TAB PO SCH ×2 (08:25→20:24)
[2018-09-21] MEDS: FERROUS SULFATE (EC) 325 MG TAB PO SCH (08:25)
[2018-09-21] MEDS: glipiZIDE 5 MG TAB PO SCH (08:27)
--- NOTE | 2018-09-21 08:27 | PN ---
Date/Time of Note Date/Time of Note DATE: 09/21/18 TIME: 08:27 Assessment/Plan VTE Prophylaxis Risk score (from Ns)>0 risk: 5 [place] [facility] [place] contraindicated: other Pharmacological prophylaxis: NA/contraindicated Pharm contraindication: bleeding Lines/Catheters [facility] [place] Urinary Cath still in place: No Assessment/Plan Assessment/Plan 1. Left foot wound with abscess and osteomyelitis s/p debridement and antibiotic spacer placement - Patient underwent amputation of L 2nd toe, debridement, placement of antibiotic spacer, and pinning of midfoot to ankle on 08/22/18. Patient doing well follow surgical intervention - Podiatry on board and appreciate recommendations. Continue current care. Plans for continued wound care in the clinic rather than home given mishap that occurred with wound vac and home health agency - ID on board and appreciate recommendations. Continue on Daptomycin - Acute on chronic left foot wound - arterial studies noted - MRI results noted as well - Wound cultures noted 2. Sepsis secondary to above left foot wound - remains afebrile and WBC nl - blood cultures negative - Wound cultures growing MRSA, strep and corynebacterium 3. Anemia, chronic disease - on iron supplements 4. Diabetes Mellitus - Insulin - ISS and accuchecks 5. Hypertension - will add amlodipine and increase as needed - continue BB 6. TYRA - most likely ATN given started after Vanc trough dose was elevated- - continue IVF and monitor for improvement in renal function 7. Disposition - Adjustments made to BP medications given persists with elevated BP - Monitor for improvement in TYRA Result Diagram: 09/21/18 0459 09/21/18 0459 Results 24hrs Laboratory Tests Test 09/20/18 08:31 09/20/18 12:47 09/20/18 17:39 09/20/18 20:38 Bedside Glucose 168 240 H 232 H 192 Test 09/21/18 04:59 White Blood Count 6.9 Red Blood Count 2.55 L Hemoglobin 7.6 L Hematocrit 22.7 L Mean Corpuscular Volume 89.0 Mean Corpuscular 29.8 Hemoglobin Mean Corpuscular 33.5 Hemoglobin Concent Red Cell Distribution 13.8 Width Platelet Count 290 Mean Platelet Volume 9.3 Immature Granulocytes % 0.300 Neutrophils % 62.7 Lymphocytes % 28.4 Monocytes % 6.7 Eosinophils % 1.6 Basophils % 0.3 Nucleated Red Blood 0.0 Cells % Immature Granulocytes # 0.020 Neutrophils # 4.3 Lymphocytes # 2.0 Monocytes # 0.5 Eosinophils # 0.1 Basophils # 0.0 Nucleated Red Blood 0.0 Cells # Sodium Level 137 Potassium Level 3.8 Chloride Level 106 Carbon Dioxide Level 23 Anion Gap 8 Blood Urea Nitrogen 30 H Creatinine 1.27 H Glucose Level 142 # Calcium Level 8.8 Phosphorus Level 4.7 Magnesium Level 1.7 Albumin 2.6 L Subjective 24 Hr Interval Summary Free Text/Dictation Patient doing well and denies any complaints. Discussed plan of care for continue wound care as outpatient. Exam/Review of Systems Exam Vitals Vital Signs Date Temp Pulse Resp B/P (MAP) Pulse Ox O2 O2 Flow FiO2 Time Delivery Rate 09/21/18 91 18 162/82 97 Room Air 08:23 (108) 09/21/18 97.9 02:00 09/19/18 8.0 21:53 Intake and Output 09/20/18 09/20/18 09/21/18 1515:00 23:00 07:00 IntakeIntake Total 1160 ml 420 ml OutputOutput Total 450 ml 400 ml BalanceBalance 710 ml 20 ml Exam General: Patient is laying in bed and answers questions appropriately Respiratory: Clear to auscultation bilaterally. no wheezing Cardiovascular: regular rate and rhythm, no obvious murmurs Gastrointestinal: soft, non-tender to palpation, bowel sounds heard. Neurological: Moves all extremities spontaneously Skin: Left cast in place up to knee. Results Results 24hrs Laboratory Tests Test 09/20/18 08:31 09/20/18 12:47 09/20/18 17:39 09/20/18 20:38 Bedside Glucose 168 240 H 232 H 192 Test 09/21/18 04:59 White Blood Count 6.9 Red Blood Count 2.55 L Hemoglobin 7.6 L Hematocrit 22.7 L Mean Corpuscular Volume 89.0 Mean Corpuscular 29.8 Hemoglobin Mean Corpuscular 33.5 Hemoglobin Concent Red Cell Distribution 13.8 Width Platelet Count 290 Mean Platelet Volume 9.3 Immature Granulocytes % 0.300 Neutrophils % 62.7 Lymphocytes % 28.4 Monocytes % 6.7 Eosinophils % 1.6 Basophils % 0.3 Nucleated Red Blood 0.0 Cells % Immature Granulocytes # 0.020 Neutrophils # 4.3 Lymphocytes # 2.0 Monocytes # 0.5 Eosinophils # 0.1 Basophils # 0.0 Nucleated Red Blood 0.0 Cells # Sodium Level 137 Potassium Level 3.8 Chloride Level 106 Carbon Dioxide Level 23 Anion Gap 8 Blood Urea Nitrogen 30 H Creatinine 1.27 H Glucose Level 142 # Calcium Level 8.8 Phosphorus Level 4.7 Magnesium Level 1.7 Albumin 2.6 L Medications Medication Current Medications IV Flush (NS 3 ml) 3 ml PER PROTOCOL IV ; Start 09/10/18 at 18:30 Ondansetron HCl (Zofran Inj) 4 mg Q6H PRN IV NAUSEA/VOMITING Last administered on 09/20/18 08:48; Admin Dose 4 MG; Start 09/10/18 at 18:30 Acetaminophen (Tylenol Tab) 650 mg Q6H PRN PO .PAIN 1-3 OR TEMP Last administered on 09/20/18 08:48; Admin Dose 650 MG; Start 09/10/18 at 18:30 Acetaminophen/ Hydrocodone Bitart ([place] (5/325)) 1 tab Q6H PRN PO .PAIN 4-6; Start 09/10/18 at 18:30 Insulin Aspart (Novolog Insulin Pen) NOVOLOG *MILD* ALGORITHM WITH MEALS BEDTIME SC Last administered on 09/20/18 20:42; Admin Dose 1 UNIT; Start 09/10/18 at 21:00 Hydralazine HCl (Apresoline) 10 mg Q4H PRN IV sbp >160 Last administered on 09/20/18 15:37; Admin Dose 10 MG; Start 09/10/18 at 18:30 Atorvastatin Calcium (Lipitor) 20 mg QHS PO Last administered on 09/20/18 20:42; Admin Dose 20 MG; Start 09/10/18 at 21:00 Ferrous Sulfate (Ferrous Sulfate (Ec)) 325 mg DAILY PO Last administered on 09/20/18 08:47; Admin Dose 325 MG; Start 09/11/18 at 09:00 Sodium Hypochlorite (Dakin'S (Dilute )) 1 applic DAILY IRR Last administered on 09/18/18 08:41; Admin Dose 1 APPLIC; Start 09/12/18 at 09:00; Status Hold Miscellaneous Information 1 ea NOTE XX ; Start 09/13/18 at 18:00 Glucose (Glutose) 15 gm Q15M PRN PO DECREASED GLUCOSE; Start 09/13/18 at 18:00 Glucose (Glutose) 22.5 gm Q15M PRN PO DECREASED GLUCOSE; Start 09/13/18 at 18:00 Dextrose (D50w Syringe) 25 ml Q15M PRN IV DECREASED GLUCOSE; Start 09/13/18 at 18:00 Dextrose (D50w Syringe) 50 ml Q15M PRN IV DECREASED GLUCOSE; Start 09/13/18 at 18:00 Glucagon (Glucagen) 1 mg Q15M PRN IM DECREASED GLUCOSE; Start 09/13/18 at 18:00 Glucose (Glutose) 15 gm Q15M PRN BUCCAL DECREASED GLUCOSE; Start 09/13/18 at 18:00 Insulin Aspart (Novolog Insulin Pen) 4 unit WITH MEALS SC Last administered on 09/19/18 08:36; Admin Dose 4 UNIT; Start 09/14/18 at 12:00; Status Hold Insulin Glargine (Lantus) 14 units DAILY@2000 SC Last administered on 09/20/18 20:41; Admin Dose 14 UNITS; Start 09/14/18 at 20:00 Morphine Sulfate (morphine) 6 mg Q4H PRN PO SEVERE PAIN LEVEL 7-10; Start 09/15/18 at 15:00 Daptomycin 355 mg/ Sodium Chloride 100 ml @ 200 mls/hr Q24H IVPB Last administered on 09/20/18 15:37; Admin Dose 200 MLS/HR; Start 09/18/18 at 14:00 Benzonatate (Tessalon) 100 mg TID PRN PO cough Last administered on 09/20/18 09:45; Admin Dose 100 MG; Start 09/18/18 at 12:30 Diphenhydramine HCl (Benadryl) 25 mg Q6H PRN IV itching Last administered on 09/20/18 09:45; Admin Dose 25 MG; Start 09/20/18 at 09:00 Glipizide (Glucotrol) 5 mg AC BREAKFAST PO ; Start 09/21/18 at 07:00 Sodium Chloride ([place]) 2 spray Q6H NASAL Last administered on 09/20/18 17:38; Admin Dose 2 SPRAY; Start 09/20/18 at 18:30 Metoprolol Tartrate (Lopressor) 100 mg BID PO Last administered on 3/9/19at 20:43; Admin Dose 100 MG; Start 09/20/18 at 21:00 ANTONIO VITAL MD Sep 21, 2018 08:27
--- NOTE | 2018-09-21 09:49 | SIPON ---
Date/Time of Note Date/Time of Note DATE: 09/19/18 TIME: 2100 Operative Report Preoperative Diagnosis Gangrene left 2nd toe Osteomyelitis Cellulitis DFU Instability of midfoot Postoperative Diagnosis same Operation/Procedure Performed Left foot open 2nd ray amputation left foot Excisional debridement left foot skin, subcut, muscle, bone 40 cm Application of nonbiodegradable drug delivery implant with gentamicin Percutaneous pinning of midfoot and ankle Application of short leg cast Surgeon see signature line assistant hairstylist none Anesthesia: general Estimated blood loss: 10 - 50 ml's Transfusion Required none Specimen none Grafts/Implants PMMA with gentamcin Complications none JAYY BRUNO DPM Sep 21, 2018 09:49
[2018-09-21] MEDS: SOD CHLORIDE 0.9% 1,000 ML IV SCH (10:05)
--- NOTE | 2018-09-21 12:07 | CONS ---
Consultation Date/Type/Reason Admit Date/Time Sep 10, 2018 at 18:26 Initial Consult Date SUBJECTIVE: Pt is awake, alert, afebrile Vs: stable T: 97.9 LABS: Reviewed. WBC- 6.9 Antimicrobials: Daptomycin Chest x-ray revealed no acute disease. Arterial study of left lower extremity showed inflow disease due to upstream stenosis Microbiology: Left ankle wound culture growing Corynebacterium, strep pyogenous and MRSA PHYSICAL EXAMINATION: GENERAL: This is a well-developed middle-aged woman who is in no distress. HEENT: Head is atraumatic, normocephalic. NECK: Supple. CHEST: Rise symmetrical. Breath sounds diminished to bases. HEART: S1, S2. ABDOMEN: Soft. Bowel tones present. EXTREMITIES: Left lower extremity dressing intact ASSESSMENT: 1. S/p sepsis secondary to #2 2. Left foot cellulitis, abscess, osteomyelitis, status post multiple incision and drainage/ skin graft 3. Diabetes 4. Diabetic neuropathy/PAD. 5. Anemia. PLAN: Pt is stable. Continue current abx, . Wound care and podiatry recommendations. Date/Time of Note DATE: 09/21/18 TIME: 12:06 Exam/Review of Systems Exam Vitals Vital Signs Date Temp Pulse Resp B/P (MAP) Pulse Ox O2 O2 Flow FiO2 Time Delivery Rate 09/21/18 91 18 162/82 97 Room Air 08:23 (108) 09/21/18 97.9 02:00 09/19/18 8.0 21:53 Intake and Output 09/20/18 09/20/18 09/21/18 1515:00 23:00 07:00 IntakeIntake Total 1160 ml 420 ml OutputOutput Total 450 ml 400 ml BalanceBalance 710 ml 20 ml Results Result Diagram: 09/21/18 0459 09/21/18 0459 Results 24hrs Laboratory Tests Test 09/20/18 12:47 09/20/18 17:39 09/20/18 20:38 09/21/18 04:59 Bedside Glucose 240 H 232 H 192 White Blood Count 6.9 Red Blood Count 2.55 L Hemoglobin 7.6 L Hematocrit 22.7 L Mean Corpuscular 89.0 Volume Mean Corpuscular 29.8 Hemoglobin Mean Corpuscular 33.5 Hemoglobin Concent Red Cell Distribution 13.8 Width Platelet Count 290 Mean Platelet Volume 9.3 Immature Granulocytes 0.300 % Neutrophils % 62.7 Lymphocytes % 28.4 Monocytes % 6.7 Eosinophils % 1.6 Basophils % 0.3 Nucleated Red Blood 0.0 Cells % Immature Granulocytes 0.020 # Neutrophils # 4.3 Lymphocytes # 2.0 Monocytes # 0.5 Eosinophils # 0.1 Basophils # 0.0 Nucleated Red Blood 0.0 Cells # Sodium Level 137 Potassium Level 3.8 Chloride Level 106 Carbon Dioxide Level 23 Anion Gap 8 Blood Urea Nitrogen 30 H Creatinine 1.27 H Glucose Level 142 # Calcium Level 8.8 Phosphorus Level 4.7 Magnesium Level 1.7 Albumin 2.6 L Test 09/21/18 08:26 Bedside Glucose 122 Medications Medication Current Medications IV Flush (NS 3 ml) 3 ml PER PROTOCOL IV ; Start 09/10/18 at 18:30 Ondansetron HCl (Zofran Inj) 4 mg Q6H PRN IV NAUSEA/VOMITING Last administered on 09/20/18 08:48; Admin Dose 4 MG; Start 09/10/18 at 18:30 Acetaminophen (Tylenol Tab) 650 mg Q6H PRN PO .PAIN 1-3 OR TEMP Last administered on 09/20/18 08:48; Admin Dose 650 MG; Start 09/10/18 at 18:30 Acetaminophen/ Hydrocodone Bitart ([place] (5/325)) 1 tab Q6H PRN PO .PAIN 4-6; Start 09/10/18 at 18:30 Insulin Aspart (Novolog Insulin Pen) NOVOLOG *MILD* ALGORITHM WITH MEALS BEDTIME SC Last administered on 09/20/18 20:42; Admin Dose 1 UNIT; Start 09/10/18 at 21:00 Hydralazine HCl (Apresoline) 10 mg Q4H PRN IV sbp >160 Last administered on 09/20/18 15:37; Admin Dose 10 MG; Start 09/10/18 at 18:30 Atorvastatin Calcium (Lipitor) 20 mg QHS PO Last administered on 09/20/18 20:42; Admin Dose 20 MG; Start 09/10/18 at 21:00 Ferrous Sulfate (Ferrous Sulfate (Ec)) 325 mg DAILY PO Last administered on 09/21/18 08:25; Admin Dose 325 MG; Start 09/11/18 at 09:00 Sodium Hypochlorite (Dakin'S (Dilute )) 1 applic DAILY IRR Last administered on 09/18/18 08:41; Admin Dose 1 APPLIC; Start 09/12/18 at 09:00; Status Hold Miscellaneous Information 1 ea NOTE XX ; Start 09/13/18 at 18:00 Glucose (Glutose) 15 gm Q15M PRN PO DECREASED GLUCOSE; Start 09/13/18 at 18:00 Glucose (Glutose) 22.5 gm Q15M PRN PO DECREASED GLUCOSE; Start 09/13/18 at 18:00 Dextrose (D50w Syringe) 25 ml Q15M PRN IV DECREASED GLUCOSE; Start 09/13/18 at 18:00 Dextrose (D50w Syringe) 50 ml Q15M PRN IV DECREASED GLUCOSE; Start 09/13/18 at 18:00 Glucagon (Glucagen) 1 mg Q15M PRN IM DECREASED GLUCOSE; Start 09/13/18 at 18:00 Glucose (Glutose) 15 gm Q15M PRN BUCCAL DECREASED GLUCOSE; Start 09/13/18 at 18:00 Insulin Aspart (Novolog Insulin Pen) 4 unit WITH MEALS SC Last administered on 09/19/18 08:36; Admin Dose 4 UNIT; Start 09/14/18 at 12:00; Status Hold Insulin Glargine (Lantus) 14 units DAILY@2000 SC Last administered on 09/20/18 20:41; Admin Dose 14 UNITS; Start 09/14/18 at 20:00 Morphine Sulfate (morphine) 6 mg Q4H PRN PO SEVERE PAIN LEVEL 7-10; Start 09/15/18 at 15:00 Daptomycin 355 mg/ Sodium Chloride 100 ml @ 200 mls/hr Q24H IVPB Last administered on 09/20/18 15:37; Admin Dose 200 MLS/HR; Start 09/18/18 at 14:00 Benzonatate (Tessalon) 100 mg TID PRN PO cough Last administered on 09/21/18 08:24; Admin Dose 100 MG; Start 09/18/18 at 12:30 Diphenhydramine HCl (Benadryl) 25 mg Q6H PRN IV itching Last administered on 09/20/18 09:45; Admin Dose 25 MG; Start 09/20/18 at 09:00 Glipizide (Glucotrol) 5 mg AC BREAKFAST PO Last administered on 09/21/18 08:27; Admin Dose 5 MG; Start 09/21/18 at 07:00 Sodium Chloride (Deep Sea) 2 spray Q6H NASAL Last administered on 09/20/18 17:3 8; Admin Dose 2 SPRAY; Start 09/20/18 at 18:30 Metoprolol Tartrate (Lopressor) 100 mg BID PO Last administered on 09/21/18 08:25; Admin Dose 100 MG; Start 09/20/18 at 21:00 Sodium Chloride 1,000 ml @ 60 mls/hr [id number] IV Last administered on 09/21/18 10:05; Admin Dose 60 MLS/HR; Start 09/21/18 at 08:30 WILBER SHEPPARD Sep 21, 2018 12:07
[2018-09-21] MEDS: ACETAMINOPHEN 325 MG TAB PO PRN ×2 (12:41→23:17)
[2018-09-21 14:14] VITALS: BP 180/81; PULSE 85; RESP 18
[2018-09-21] MEDS: SOD CHLORIDE 0.9% IVPB SCH (14:30)
[2018-09-21] MEDS: DAPTOMYCIN IVPB SCH (14:30)
[2018-09-21] MEDS: hydrALAzine 20 MG INJ IV PRN ×2 (14:31→23:17)
[2018-09-21] MEDS: AMLODIPINE 5 MG TAB PO SCH (15:51)
[2018-09-21 19:58] VITALS: BP 171/82; PULSE 97; RESP 18
[2018-09-21] MEDS: INSULIN GLARGINE [LANTus] (100 UNITS/ML) SYG SC SCH (20:17)
[2018-09-21] MEDS: ATORVASTATIN 20 MG TAB PO SCH (20:18)
[2018-09-21 23:13] VITALS: BP 161/78; PULSE 82; RESP 18
[2018-09-22] MEDS: SALINE 0.65% 45 ML NAS SPRAY NASAL SCH ×4 (00:30→18:02)
[2018-09-22] MEDS: SOD CHLORIDE 0.9% 1,000 ML IV SCH ×4 (01:10→22:10)
[2018-09-22 01:40] VITALS: BP 132/71; PULSE 95; RESP 18
[2018-09-22] MEDS: DIPHENHYDRAMINE 50 MG INJ IV PRN (03:01)
[2018-09-22] MEDS: BENZONATATE 100 MG CAP PO PRN ×2 (05:48→20:19)
--- NOTE | 2018-09-22 06:59 | OPR ---
DATE OF OPERATION: 09/19/2018 SURGEON: Jayy Stevens DPM KEYBOARD OPERATOR: None. PREOPERATIVE DIAGNOSES: 1. Gangrene, left second toe, osteomyelitis, left foot. 2. Cellulitis. 3. Diabetic foot ulceration. 4. Instability of mid foot. 5. Failed allograft, skin graft and flap. POSTOPERATIVE DIAGNOSES: 1. Gangrene, left second toe osteomyelitis, left foot. 2. Cellulitis. 3. Diabetic foot ulceration. 4. Instability of mid foot. 5. Failed allograft, skin graft and flap. OPERATION: 1. Left foot open second ray amputation. 2. Excisional debridement of skin, subcutaneous tissue, muscle 40 cm2. 3. Application of non-biodegradable drug delivery implant with gentamicin. 4. Percutaneous pinning of mid foot and ankle. 5. Application of short leg cast. PATHOLOGY: None. ANESTHESIA: General. ESTIMATED BLOOD LOSS: 30 mL. SPECIMEN: None. IMPLANT: Polymethyl methacrylate with gentamicin. COMPLICATIONS: None. INDICATION FOR PROCEDURE: A 35-year-old female with challenging ulceration, has a prior necrotizing infection. Had undergone numerous procedures for limb salvage. She has been followed for wound care and operation as well as hyperbaric therapy for osteomyelitis and failed flap. She had developed acute synovitis and gangrene of the second toe and has been on IV antibiotics since admission. The patient is still refusing a major limb amputation and so is requesting alternative therapy. Discussed risks, benefits, potential complications, alternate treatments. Informed consent obtained. Patient education and family's in Estonian. PROCEDURE IN DETAIL: The patient brought into the room and was placed in the supine position. Formal timeout was performed and sterilely was prepped with betadine scrub and paint, draped in usual sterile fashion. At this time, attention was directed to left 2nd toe and was disarticulated at the metatarsophalangeal joint. There was what appeared to be a fracture of the metatarsal head and this was excised with rongeurs. The ulceration was irrigated with pulsed lavage. The patient had ulcerations extending from the plantar hallux to the mid foot and excisional debridement of skin, subcutaneous tissues 40 cm2. The patient had instability of the mid foot, ankle and hallux. At this time, the ankle was reduced to a neutral position. A transarticular pin was placed through the ankle joint and a second smooth wire fixation placed through the hallux and first metatarsal and 4 additional smooth pins applied following reduction of the mid foot and was percutaneous pinning of the mid foot with 4 smooth wires. At this time the ulceration was then filled this with nonbiodegradable drug delivery implant prepared and applied as an antibiotic spacer to the medial foot plantar ulceration and dorsal lateral foot. This was wrapped with Xeroform, 4 x 4's, Kerlix. The patient placed in a nonweightbearing short leg cast below knee. The patient tolerated the procedure well. Dictated By: JAYY MERCER/CESAR Conf#: [id number] DID#: [id number] CC: Yenifer Dc;*EndCC* MTDD
[2018-09-22 07:57] VITALS: BP 140/72; PULSE 87; RESP 20
[2018-09-22] MEDS: METOPROLOL 100 MG TAB PO SCH ×2 (08:04→20:16)
[2018-09-22] MEDS: INSULIN ASPART [NOVOLOG] 3 ML PEN SC SCH ×4 (08:04→20:17)
[2018-09-22] MEDS: AMLODIPINE 5 MG TAB PO SCH (08:05)
[2018-09-22] MEDS: FERROUS SULFATE (EC) 325 MG TAB PO SCH (08:05)
[2018-09-22] MEDS: glipiZIDE 5 MG TAB PO SCH (08:05)
--- NOTE | 2018-09-22 12:11 | CONS ---
Assessment/Plan Assessment/Plan Hospital Course (Demo Recall) No acute events patient is sleeping son at bedside no fevers overnight vital signs stable WBC 7.1 no shift no bands BUN 29 creatinine 1.17 Antimicrobials: Daptomycin Microbiology: Left ankle wound culture growing Corynebacterium, strep pyogenous and MRSA PHYSICAL EXAMINATION: GENERAL: This is a well-developed middle-aged woman who is in no distress. HEENT: Head is atraumatic, normocephalic. NECK: Supple. CHEST: Rise symmetrical. Breath sounds diminished to bases. HEART: S1, S2. ABDOMEN: Soft. Bowel tones present. EXTREMITIES: Left lower extremity dressing intact ASSESSMENT: 1. S/p sepsis secondary to #2 2. Left foot cellulitis, abscess, osteomyelitis, status post multiple incision and drainage/ skin graft 3. Diabetes 4. Diabetic neuropathy/PAD. 5. Anemia. PLAN: Patient remains stable, status post left foot open second ray amputation with debridement and pinning of midfoot and ankle as well as impregnated antibiotic spacer placement 09/19/18, continue present care and antibiotics, follow podiatry recommendations Consultation Date/Type/Reason Admit Date/Time Sep 10, 2018 at 18:26 Initial Consult Date Type of Consult id Date/Time of Note DATE: 09/22/18 TIME: 12:08 Exam/Review of Systems Exam Vitals Vital Signs Date Temp Pulse Resp B/P (MAP) Pulse Ox O2 O2 Flow FiO2 Time Delivery Rate 09/22/18 97.8 87 20 140/72 97 07:57 (94) 09/21/18 Room Air 14:14 09/19/18 8.0 21:53 Intake and Output 09/21/18 09/21/18 09/22/18 1414:59 22:59 06:59 IntakeIntake Total 1080 ml 1740 ml 620 ml OutputOutput Total 1600 ml 1800 ml 1000 ml BalanceBalance -520 ml -60 ml -380 ml Results Result Diagram: 09/22/18 0540 09/22/18 0540 Results 24hrs Laboratory Tests Test 09/21/18 12:36 09/21/18 17:31 09/21/18 20:15 09/22/18 02:15 Bedside Glucose 193 205 218 197 Test 09/22/18 05:40 09/22/18 08:01 White Blood Count 7.1 Red Blood Count 2.60 L Hemoglobin 7.8 L Hematocrit 23.2 L Mean Corpuscular 89.2 Volume Mean Corpuscular 30.0 Hemoglobin Mean Corpuscular 33.6 Hemoglobin Concent Red Cell 13.8 Distribution Width Platelet Count 276 Mean Platelet Volume 9.5 Immature 0.400 Granulocytes % Neutrophils % 60.8 Lymphocytes % 29.7 Monocytes % 6.5 Eosinophils % 2.0 Basophils % 0.6 Nucleated Red Blood 0.0 Cells % Immature 0.030 Granulocytes # Neutrophils # 4.3 Lymphocytes # 2.1 Monocytes # 0.5 Eosinophils # 0.1 Basophils # 0.0 Nucleated Red Blood 0.0 Cells # Sodium Level 140 Potassium Level 3.6 Chloride Level 108 Carbon Dioxide Level 21 Anion Gap 11 Blood Urea Nitrogen 29 H Creatinine 1.17 H Glucose Level 164 Calcium Level 8.8 Phosphorus Level 5.5 H Magnesium Level 1.7 Albumin 2.7 L Bedside Glucose 151 Medications Medication Current Medications IV Flush (NS 3 ml) 3 ml PER PROTOCOL IV ; Start 09/10/18 at 18:30 Ondansetron HCl (Zofran Inj) 4 mg Q6H PRN IV NAUSEA/VOMITING Last administered on 09/20/18 08:48; Admin Dose 4 MG; Start 09/10/18 at 18:30 Acetaminophen (Tylenol Tab) 650 mg Q6H PRN PO .PAIN 1-3 OR TEMP Last administered on 09/21/18 23:17; Admin Dose 650 MG; Start 09/10/18 at 18:30 Acetaminophen/ Hydrocodone Bitart ([place] (5/325)) 1 tab Q6H PRN PO .PAIN 4-6; Start 09/10/18 at 18:30 Insulin Aspart (Novolog Insulin Pen) NOVOLOG *MILD* ALGORITHM WITH MEALS BEDTIME SC Last administered on 09/22/18 08:04; Admin Dose 1 UNIT; Start 08/16 01/30 at 21:00 Hydralazine HCl (Apresoline) 10 mg Q4H PRN IV sbp >160 Last administered on 09/21/18 23:17; Admin Dose 10 MG; Start 09/10/18 at 18:30 Atorvastatin Calcium (Lipitor) 20 mg QHS PO Last administered on 09/21/18 20:18; Admin Dose 20 MG; Start 09/10/18 at 21:00 Ferrous Sulfate (Ferrous Sulfate (Ec)) 325 mg DAILY PO Last administered on 09/22/18 08:05; Admin Dose 325 MG; Start 09/11/18 at 09:00 Sodium Hypochlorite (Dakin'S (Dilute )) 1 applic DAILY IRR Last administered on 09/18/18 08:41; Admin Dose 1 APPLIC; Start 09/12/18 at 09:00; Status Hold Miscellaneous Information 1 ea NOTE XX ; Start 09/13/18 at 18:00 Glucose (Glutose) 15 gm Q15M PRN PO DECREASED GLUCOSE; Start 09/13/18 at 18:00 Glucose (Glutose) 22.5 gm Q15M PRN PO DECREASED GLUCOSE; Start 09/13/18 at 18:00 Dextrose (D50w Syringe) 25 ml Q15M PRN IV DECREASED GLUCOSE; Start 09/13/18 at 18:00 Dextrose (D50w Syringe) 50 ml Q15M PRN IV DECREASED GLUCOSE; Start 09/13/18 at 18:00 Glucagon (Glucagen) 1 mg Q15M PRN IM DECREASED GLUCOSE; Start 09/13/18 at 18:00 Glucose (Glutose) 15 gm Q15M PRN BUCCAL DECREASED GLUCOSE; Start 09/13/18 at 18:00 Insulin Aspart (Novolog Insulin Pen) 4 unit WITH MEALS SC Last administered on 09/19/18 08:36; Admin Dose 4 UNIT; Start 09/14/18 at 12:00; Status Hold Insulin Glargine (Lantus) 14 units DAILY@2000 SC Last administered on 09/21/18 20:17; Admin Dose 14 UNITS; Start 09/14/18 at 20:00 Morphine Sulfate (morphine) 6 mg Q4H PRN PO SEVERE PAIN LEVEL 7-10; Start 09/15/18 at 15:00 Daptomycin 355 mg/ Sodium Chloride 100 ml @ 200 mls/hr Q24H IVPB Last administered on 09/21/18 14:30; Admin Dose 200 MLS/HR; Start 09/18/18 at 14:00 Benzonatate (Tessalon) 100 mg TID PRN PO cough Last administered on 09/22/18 05:48; Admin Dose 100 MG; Start 09/18/18 at 12:30 Diphenhydramine HCl (Benadryl) 25 mg Q6H PRN IV itching Last administered on 09/22/18 03:01; Admin Dose 25 MG; Start 09/20/18 at 09:00 Glipizide (Glucotrol) 5 mg AC BREAKFAST PO Last administered on 09/22/18 08:0 5; Admin Dose 5 MG; Start 09/21/18 at 07:00 Sodium Chloride ([place]) 2 spray Q6H NASAL Last administered on 09/22/18 05:46; Admin Dose 2 SPRAY; Start 09/20/18 at 18:30 Metoprolol Tartrate (Lopressor) 100 mg BID PO Last administered on 09/22/18 08:04; Admin Dose 100 MG; Start 09/20/18 at 21:00 Sodium Chloride 1,000 ml @ 60 mls/hr [id number] IV Last administered on 09/22/18 03:22; Admin Dose 60 MLS/HR; Start 09/21/18 at 08:30 Amlodipine Besylate (Norvasc) 5 mg DAILY PO Last administered on 09/22/18 08:05; Admin Dose 5 MG; Start 09/21/18 at 15:00 TRINY TUCKER NP Sep 22, 2018 12:11
[2018-09-22 15:00] VITALS: BP 159/73; PULSE 92; RESP 18
--- NOTE | 2018-09-22 15:23 | PN ---
Date/Time of Note Date/Time of Note DATE: 09/22/18 TIME: 15:20 Objective Vitals Vital Signs Date Temp Pulse Resp B/P (MAP) Pulse Ox O2 O2 Flow FiO2 Time Delivery Rate 09/22/18 97.7 92 18 159/73 99 15:00 (101) 09/21/18 Room Air 14:14 09/19/18 8.0 21:53 Intake and Output 09/21/18 09/21/18 09/22/18 1414:59 22:59 06:59 IntakeIntake Total 1080 ml 1740 ml 620 ml OutputOutput Total 1600 ml 1800 ml 1000 ml BalanceBalance -520 ml -60 ml -380 ml Results Result Diagram: 09/22/18 0540 09/22/18 0540 Medications Medications Current Medications IV Flush (NS 3 ml) 3 ml PER PROTOCOL IV ; Start 09/10/18 at 18:30 Ondansetron HCl (Zofran Inj) 4 mg Q6H PRN IV NAUSEA/VOMITING Last administered on 09/20/18 08:48; Admin Dose 4 MG; Start 09/10/18 at 18:30 Acetaminophen (Tylenol Tab) 650 mg Q6H PRN PO .PAIN 1-3 OR TEMP Last administered on 09/21/18 23:17; Admin Dose 650 MG; Start 09/10/18 at 18:30 Acetaminophen/ Hydrocodone Bitart ([place] (5/325)) 1 tab Q6H PRN PO .PAIN 4-6; Start 09/10/18 at 18:30 Insulin Aspart (Novolog Insulin Pen) NOVOLOG *MILD* ALGORITHM WITH MEALS BEDTIME SC Last administered on 09/22/18 08:04; Admin Dose 1 UNIT; Start 09/10/18 at 21:00 Hydralazine HCl (Apresoline) 10 mg Q4H PRN IV sbp >160 Last administered on 09/21/18 23:17; Admin Dose 10 MG; Start 09/10/18 at 18:30 Atorvastatin Calcium (Lipitor) 20 mg QHS PO Last administered on 09/21/18 20:18; Admin Dose 20 MG; Start 09/10/18 at 21:00 Ferrous Sulfate (Ferrous Sulfate (Ec)) 325 mg DAILY PO Last administered on 09/22/18 08:05; Admin Dose 325 MG; Start 09/11/18 at 09:00 Sodium Hypochlorite (Dakin'S (Dilute )) 1 applic DAILY IRR Last administered on 09/18/18at 08:41; Admin Dose 1 APPLIC; Start 09/12/18 at 09:00; Status Hold Miscellaneous Information 1 ea NOTE XX ; Start 09/13/18 at 18:00 Glucose (Glutose) 15 gm Q15M PRN PO DECREASED GLUCOSE; Start 09/13/18 at 18:00 Glucose (Glutose) 22.5 gm Q15M PRN PO DECREASED GLUCOSE; Start 09/13/18 at 18:00 Dextrose (D50w Syringe) 25 ml Q15M PRN IV DECREASED GLUCOSE; Start 09/13/18 at 18:00 Dextrose (D50w Syringe) 50 ml Q15M PRN IV DECREASED GLUCOSE; Start 09/13/18 at 18:00 Glucagon (Glucagen) 1 mg Q15M PRN IM DECREASED GLUCOSE; Start 09/13/18 at 18:00 Glucose (Glutose) 15 gm Q15M PRN BUCCAL DECREASED GLUCOSE; Start 09/13/18 at 18:00 Insulin Aspart (Novolog Insulin Pen) 4 unit WITH MEALS SC Last administered on 09/19/18at 08:36; Admin Dose 4 UNIT; Start 09/14/18 at 12:00; Status Hold Insulin Glargine (Lantus) 14 units DAILY@2000 SC Last administered on 09/21/18at 20:17; Admin Dose 14 UNITS; Start 09/14/18 at 20:00 Morphine Sulfate (morphine) 6 mg Q4H PRN PO SEVERE PAIN LEVEL 7-10; Start 09/15/18 at 15:00 Daptomycin 355 mg/ Sodium Chloride 100 ml @ 200 mls/hr Q24H IVPB Last administered on 09/21/18at 14:30; Admin Dose 200 MLS/HR; Start 09/18/18 at 14:00 Benzonatate (Tessalon) 100 mg TID PRN PO cough Last administered on 09/22/18 05:48; Admin Dose 100 MG; Start 09/18/18 at 12:30 Diphenhydramine HCl (Benadryl) 25 mg Q6H PRN IV itching Last administered on 09/22/18 03:01; Admin Dose 25 MG; Start 09/20/18 at 09:00 Glipizide (Glucotrol) 5 mg AC BREAKFAST PO Last administered on 09/22/18at 08:05; Admin Dose 5 MG; Start 09/21/18 at 07:00 Sodium Chloride ([place]) 2 spray Q6H NASAL Last administered on 09/22/18at 05:46; Admin Dose 2 SPRAY; Start 09/20/18 at 18:30 Metoprolol Tartrate (Lopressor) 100 mg BID PO Last administered on 09/22/18 08:04; Admin Dose 100 MG; Start 09/20/18 at 21:00 Sodium Chloride 1,000 ml @ 60 mls/hr [id number] IV Last administered on 09/22/18 03:22; Admin Dose 60 MLS/HR; Start 09/21/18 at 08:30 Amlodipine Besylate (Norvasc) 5 mg DAILY PO Last administered on 09/22/18 08:05; Admin Dose 5 MG; Start 09/21/18 at 15:00 VTE Prophylaxis Risk score (from N[place])>0 risk: 4 [place] [facility] [place]/Catheters IV Catheter Type: [place] in Place: No Assessment/Plan Hospital Course Subjective No acute changes overnight Objective Physical exam General: Patient is laying in bed and answers questions appropriately Mentation: Patient is alert and oriented 4, Head: Normocephalic atraumatic Eyes: EOMI, pupils reactive to light Neck: Supple, nontender, midline Respiratory: Clear to auscultation bilaterally Cardiovascular: regular rate, no obvious murmurs Gastrointestinal: non-tender to palpation, bowel sounds heard. Neurological: Moves all extremities spontaneously Skin: Left foot wound ulcer, bandaged, Assessment/Plan 1. Left foot wound with abscess and osteomyelitis s/p debridement and antibiotic spacer placement - Patient underwent amputation of L 2nd toe, debridement, placement of antibiotic spacer, and pinning of midfoot to ankle on 08/22/18. Patient doing well follow surgical intervention - Podiatry on board and appreciate recommendations. Continue current care. Plans for continued wound care in the clinic rather than home given mishap that occurred with wound vac and home health agency - ID on board and appreciate recommendations. Continue on Daptomycin - Acute on chronic left foot wound - arterial studies noted - MRI results noted as well - Wound cultures noted 2. Sepsis secondary to above left foot wound - remains afebrile and WBC nl - blood cultures negative - Wound cultures growing MRSA, strep and corynebacterium 3. Anemia, chronic disease - on iron supplements 4. Diabetes Mellitus - Insulin - ISS and accuchecks 5. Hypertension - will add amlodipine and increase as needed - continue BB 6. TYRA - most likely ATN given started after Vanc trough dose was elevated- - continue IVF and monitor for improvement in renal function 7. Disposition - Adjustments made to BP medications given persists with elevated BP - Monitor for improvement in TYRA ROLANDA CEDILLO Sep 22, 2018 15:23
[2018-09-22] MEDS: DAPTOMYCIN IVPB SCH (16:35)
[2018-09-22] MEDS: SOD CHLORIDE 0.9% IVPB SCH (16:35)
--- NOTE | 2018-09-22 17:15 | CONS ---
DATE OF ADMISSION: 09/10/2018 DATE OF CONSULTATION: TYPE OF CONSULTATION: Nephrology. REASON FOR CONSULTATION: Acute kidney injury. REQUESTING PHYSICIAN: Eleno Cedillo MD HISTORY OF PRESENT ILLNESS: This is a 48-year-old female with a past medical history of diabetes, hi story of dyslipidemia, history of hypertension, the patient also has a history of left foot osteomyel itis, Charcot osteopathy who presented to [facility] after being seen by a podiatri . The patient started having worsening left foot wound over the past several weeks. As a result, she was brought in and admitted to [facility]. Upon arrival, patient was seen by i nfectious disease and podiatry. The patient underwent a left foot open second toe amputation with de bridement of left foot skin and percutaneous pinning of the mid foot and ankle. The patient postoper atively has been stable. There have been no reports of any hemoptysis, hematemesis or hematochezia. In terms of patient's renal history, the patient on admission was noted to have a creatinine of 0.9 m g/dL. In the last 72 hours, the patient's creatinine has increased to 1.2 mg/dL. During this time, the patient has been receiving antibiotic therapy. There have been noted hemodynamic fluctuations. There have been no reports of any hemoptysis, hematemesis or hematochezia. PAST MEDICAL HISTORY: As stated above, history of hypertension, diabetes, dyslipidemia, history of C harcot foot. PAST SURGICAL HISTORY: Has been reviewed. ALLERGIES: NO KNOWN DRUG ALLERGIES. FAMILY HISTORY: No family history of kidney disease. SOCIAL HISTORY: Does not drink, smoke or do drugs. MEDICATIONS: The patient's medications have been reviewed. REVIEW OF SYSTEMS: A 14-point review of systems was conducted. Pertinent positives stated in HPI, o therwise negative. PHYSICAL EXAMINATION: VITAL SIGNS: Blood pressure is 159/73, respiration 18, pulse 92, temperature 98.7. HEENT: Head is normocephalic. NECK: Supple. HEART: Regular rate. LUNGS: Show diminished breath sounds at the base. ABDOMEN: Soft, nontender to palpation without rebound or guarding. EXTREMITIES: Negative for clubbing, cyanosis, no edema. DERMATOLOGIC: No rashes. MUSCULOSKELETAL: No joint effusion. NEUROLOGIC: No focal deficits. The patient's medications have been reviewed. LABORATORY DATA: Shows sodium 140, BUN 29, creatinine 1.16, phosphorus 5.5. White count 7.1, hemogl obin 7.8, and platelet count is 276. ASSESSMENT AND PLAN: 1. Nonoliguric acute kidney injury with previously normal baseline creatinine. Etiology may be seco ndary to vancomycin nephrotoxicity. The patient's vancomycin levels were noted to be elevated. The patient's renal function subsequently has declined after supratherapeutic levels were noted. Other p ossibilities including hemodynamics, interstitial nephritis are all considerations. Plan at this poi nt is to do a full evaluation. We will repeat UA with microanalysis. We will check urine electrolyt es. We will quantify proteinuria. The patient's antibiotics have been adjusted. We will monitor cl osely, on gentle IV hydration. Otherwise, continue supportive care, renally dose all meds, avoid nep hrotoxins. 2. Anemia. Continue to monitor H and H levels. 3. Mineral bone disorder. Monitor calcium and phosphorus levels. 4. Left foot abscess, osteomyelitis, status post debridement with antibiotic spacer. Continue [facility] nt medical management. Continue wound care. 5. Sepsis ____ continue current antibiotic regimen. 6. Diabetes. Continue current insulin regimen. 7. Hypertension. Continue current blood pressure regimen, consider discontinuing IV fluids. Thank you, Dr. Cedillo, for this interesting consult. It will be a pleasure to follow patient with you t hroughout the hospital course. Dictated By: CHARLES RAYMOND DO NR/NTS Conf#: [id number] DID#: [id number] CC: ELENO CEDILLO MD;*EndCC*
[2018-09-22 19:48] VITALS: BP 168/88; PULSE 102; RESP 18
[2018-09-22] MEDS: ACETAMINOPHEN 325 MG TAB PO PRN (20:18)
[2018-09-22] MEDS: INSULIN GLARGINE [LANTus] (100 UNITS/ML) SYG SC SCH (20:18)
[2018-09-22] MEDS: ATORVASTATIN 20 MG TAB PO SCH (20:19)
[2018-09-23] MEDS: SALINE 0.65% 45 ML NAS SPRAY NASAL SCH ×4 (00:30→17:45)
[2018-09-23 01:13] VITALS: BP 148/83; PULSE 81; RESP 18
[2018-09-23 07:47] VITALS: BP 138/73; PULSE 92; RESP 18
[2018-09-23] MEDS: INSULIN ASPART [NOVOLOG] 3 ML PEN SC SCH ×4 (08:00→21:06)
[2018-09-23] MEDS: glipiZIDE 5 MG TAB PO SCH (08:02)
[2018-09-23] MEDS: FERROUS SULFATE (EC) 325 MG TAB PO SCH (08:03)
[2018-09-23] MEDS: METOPROLOL 100 MG TAB PO SCH ×2 (08:03→21:03)
[2018-09-23] MEDS: AMLODIPINE 5 MG TAB PO SCH (08:04)
[2018-09-23] MEDS: BENZONATATE 100 MG CAP PO PRN (08:06)
--- NOTE | 2018-09-23 09:36 | PN ---
DATE: 09/23/2018 SUBJECTIVE: The patient is stable, no events overnight. OBJECTIVE: VITAL SIGNS: Blood pressure is 138/73, pulse 92, respirations 18, temperature 98.5. HEENT: Head is normocephalic. NECK: Supple. HEART: Regular rate. LUNGS: Show diminished breath sounds at the base. ABDOMEN: Soft, nontender to palpation without rebound or guarding. EXTREMITIES: Negative for clubbing, cyanosis, no edema. DERMATOLOGIC: No rashes. MUSCULOSKELETAL: No joint effusion. NEUROLOGIC: No change in exam. MEDICATIONS: Reviewed. LABORATORY DATA: From 09/23/2018 was reviewed. The patient's BUN is 32, creatinine 1.14, magnesium 1.5. CBC was reviewed. ASSESSMENT AND PLAN: 1. Nonoliguric acute kidney injury with previously normal baseline creatinine. Etiology is likely s econdary to vancomycin nephrotoxicity. The patient's renal function is slowly improving. Continue c urrent treatment plan, supportive care, renally dose all medicines. 2. Anemia. Monitor hemoglobin and hematocrit levels. 3. Mineral bone disorder, monitor calcium and phosphorus levels. 4. Left foot abscess, osteomyelitis, status post debridement with antibiotic spacer. Continue to mo nitor. 5. Sepsis. Continue current antibiotic regimen. 6. Hypomagnesemia, replete with magnesium sulfate. 7. Diabetes. Continue current insulin regimen. 8. Hypertension. Continue current blood pressure regimen. We will discontinue IV fluids. Dictated By: CHARLES RAYMOND DO NR/NTS Conf#: [id number] DID#: [id number] CC: ROLANDA CEDILLO MD;*EndCC*
[2018-09-23] MEDS ORDERED: MAGNESIUM SULFATE 2 GM/50 ML 50 ML IVPB ONE (10:00)
--- NOTE | 2018-09-23 10:52 | PN ---
Date/Time of Note Date/Time of Note DATE: 09/23/18 TIME: 10:51 Objective Vitals Vital Signs Date Temp Pulse Resp B/P (MAP) Pulse Ox O2 O2 Flow FiO2 Time Delivery Rate 09/23/18 98.5 92 18 138/73 98 07:47 (94) 09/21/18 Room Air 14:14 09/19/18 8.0 21:53 Intake and Output 09/22/18 09/22/18 09/23/18 1515:00 23:00 07:00 IntakeIntake Total 880 ml 1650 ml 740 ml OutputOutput Total 1000 ml 900 ml BalanceBalance -120 ml 750 ml 740 ml Results Result Diagram: 09/23/18 0501 09/23/18 0501 Medications Medications Current Medications IV Flush (NS 3 ml) 3 ml PER PROTOCOL IV ; Start 09/10/18 at 18:30 Ondansetron HCl (Zofran Inj) 4 mg Q6H PRN IV NAUSEA/VOMITING Last administered on 09/20/18 08:48; Admin Dose 4 MG; Start 09/10/18 at 18:30 Acetaminophen (Tylenol Tab) 650 mg Q6H PRN PO .PAIN 1-3 OR TEMP Last administered on 09/22/18 20:18; Admin Dose 650 MG; Start 09/10/18 at 18:30 Acetaminophen/ Hydrocodone Bitart ([place] (5/325)) 1 tab Q6H PRN PO .PAIN 4-6; Start 09/10/18 at 18:30 Insulin Aspart (Novolog Insulin Pen) NOVOLOG *MILD* ALGORITHM WITH MEALS BEDTIME SC Last administered on 09/22/18 20:17; Admin Dose 2 UNIT; Start 09/10/18 at 21:00 Hydralazine HCl (Apresoline) 10 mg Q4H PRN IV sbp >160 Last administered on 09/21/18 23:17; Admin Dose 10 MG; Start 09/10/18 at 18:30 Atorvastatin Calcium (Lipitor) 20 mg QHS PO Last administered on 09/22/18 20:19; Admin Dose 20 MG; Start 09/10/18 at 21:00 Ferrous Sulfate (Ferrous Sulfate (Ec)) 325 mg DAILY PO Last administered on 09/23/18 08:03; Admin Dose 325 MG; Start 09/11/18 at 09:00 Sodium Hypochlorite (Dakin'S (Dilute )) 1 applic DAILY IRR Last administered on 09/18/18at 08:41; Admin Dose 1 APPLIC; Start 09/12/18 at 09:00; S tatus Hold Miscellaneous Information 1 ea NOTE XX ; Start 09/13/18 at 18:00 Glucose (Glutose) 15 gm Q15M PRN PO DECREASED GLUCOSE; Start 09/13/18 at 18:00 Glucose (Glutose) 22.5 gm Q15M PRN PO DECREASED GLUCOSE; Start 09/13/18 at 18:00 Dextrose (D50w Syringe) 25 ml Q15M PRN IV DECREASED GLUCOSE; Start 09/13/18 at 18:00 Dextrose (D50w Syringe) 50 ml Q15M PRN IV DECREASED GLUCOSE; Start 09/13/18 at 1 8:00 Glucagon (Glucagen) 1 mg Q15M PRN IM DECREASED GLUCOSE; Start 09/13/18 at 18:00 Glucose (Glutose) 15 gm Q15M PRN BUCCAL DECREASED GLUCOSE; Start 09/13/18 at 18:00 Insulin Aspart (Novolog Insulin Pen) 4 unit WITH MEALS SC Last administered on 09/19/18at 08:36; Admin Dose 4 UNIT; Start 09/14/18 at 12:00; Status Hold Insulin Glargine (Lantus) 14 units DAILY@2000 SC Last administered on 09/22/18at 20:18; Admin Dose 14 UNITS; Start 09/14/18 at 20:00 Morphine Sulfate (morphine) 6 mg Q4H PRN PO SEVERE PAIN LEVEL 7-10; Start 09/15/18 at 15:00 Daptomycin 355 mg/ Sodium Chloride 100 ml @ 200 mls/hr Q24H IVPB Last administered on 09/22/18at 16:35; Admin Dose 200 MLS/HR; Start 09/18/18 at 14:00 Benzonatate (Tessalon) 100 mg TID PRN PO cough Last administered on 09/23/18at 08:06; Admin Dose 100 MG; Start 09/18/18 at 12:30 Diphenhydramine HCl (Benadryl) 25 mg Q6H PRN IV itching Last administered on 09/22/18at 03:01; Admin Dose 25 MG; Start 09/20/18 at 09:00 Glipizide (Glucotrol) 5 mg AC BREAKFAST PO Last administered on 09/23/18at 08:02; Admin Dose 5 MG; Start 09/21/18 at 07:00 Sodium Chloride (Deep Sea) 2 spray Q6H NASAL Last administered on 09/23/18at 06:50; Admin Dose 2 SPRAY; Start 09/20/18 at 18:30 Metoprolol Tartrate (Lopressor) 100 mg BID PO Last administered on 09/23/18at 08:03; Admin Dose 100 MG; Start 09/20/18 at 21:00 Magnesium Sulfate 50 ml @ 25 mls/hr ONCE ONCE IVPB Last administered on 09/23/18at 10:23; Admin Dose 25 MLS/HR; Start 09/23/18 at 10:00; Stop 09/23/18 at 11:59 Amlodipine Besylate (Norvasc) 10 mg DAILY PO ; Start 09/24/18 at 09:00 VTE Prophylaxis Risk score (from Ns)>0 risk: 6 SCD applied (from [facility]): Yes Lines/Catheters IV Catheter Type: Galaviz in Place: No Assessment/Plan Hospital Course Subjective No acute changes overnight Objective Physical exam General: Patient is laying in bed and answers questions appropriately Mentation: Patient is alert and oriented 4, Head: Normocephalic atraumatic Eyes: EOMI, pupils reactive to light Neck: Supple, nontender, midline Respiratory: Clear to auscultation bilaterally Cardiovascular: regular rate, no obvious murmurs Gastrointestinal: non-tender to palpation, bowel sounds heard. Neurological: Moves all extremities spontaneously Skin: Left foot wound ulcer, bandaged, Assessment/Plan 1. Left foot wound with abscess and osteomyelitis s/p debridement and antibi otic spacer placement - Patient underwent amputation of L 2nd toe, debridement, placement of antibi otic spacer, and pinning of midfoot to ankle on 08/22/18. Patient doing well follow surgical intervention - Podiatry on board and appreciate recommendations. Continue current care. Plans for continued wound care in the clinic rather than home given mishap that occurred with wound vac and home health agency - ID on board and appreciate recommendations. Continue on Daptomycin - Acute on chronic left foot wound - arterial studies noted - MRI results noted as well - Wound cultures noted 2. Sepsis secondary to above left foot wound - remains afebrile and WBC nl - blood cultures negative - Wound cultures growing MRSA, strep and corynebacterium 3. Anemia, chronic disease - on iron supplements 4. Diabetes Mellitus - Insulin - ISS and accuchecks 5. Hypertension - will add amlodipine and increase as needed - continue BB 6. TYRA - most likely ATN given started after Vanc trough dose was elevated- - continue IVF and monitor for improvement in renal function 7. Disposition - Adjustments made to BP medications given persists with elevated BP - Monitor for improvement in TYRA ROLANDA CEDILLO Sep 23, 2018 10:52
--- NOTE | 2018-09-23 12:27 | CONS ---
Assessment/Plan Assessment/Plan Hospital Course (Demo Recall) No acute events looks comfortable afebrile Antimicrobials: Daptomycin Microbiology: Left ankle wound culture growing Corynebacterium, strep pyogenous and MRSA PHYSICAL EXAMINATION: GENERAL: This is a well-developed middle-aged woman who is in no distress. HEENT: Head is atraumatic, normocephalic. NECK: Supple. CHEST: Rise symmetrical. Breath sounds diminished to bases. HEART: S1, S2. ABDOMEN: Soft. Bowel tones present. EXTREMITIES: Left lower extremity dressing intact ASSESSMENT: 1. S/p sepsis secondary to #2 2. Left foot cellulitis, abscess, osteomyelitis, status post multiple incision and drainage/ skin graft 3. Diabetes 4. Diabetic neuropathy/PAD. 5. Anemia. PLAN: Patient remains stable, status post left foot open second ray amputation with debridement and pinning of midfoot and ankle as well as impregnated antibiotic spacer placement 09/19/18, continue wound care per follow podiatry recommendations, anticipate dc on 6 more weeks IV abx YAMIL Perea Consultation Date/Type/Reason Admit Date/Time Sep 10, 2018 at 18:26 Initial Consult Date Type of Consult id Date/Time of Note DATE: 09/23/18 TIME: 12:25 Exam/Review of Systems Exam Vitals Vital Signs Date Temp Pulse Resp B/P (MAP) Pulse Ox O2 O2 Flow FiO2 Time Delivery Rate 09/23/18 98.5 92 18 138/73 98 07:47 (94) 09/21/18 Room Air 14:14 09/19/18 8.0 21:53 Intake and Output 09/22/18 09/22/18 09/23/18 1515:00 23:00 07:00 IntakeIntake Total 880 ml 1650 ml 740 ml OutputOutput Total 1000 ml 900 ml BalanceBalance -120 ml 750 ml 740 ml Results Result Diagram: 09/23/18 0501 09/23/18 0501 Results 24hrs Laboratory Tests Test 09/22/18 12:50 09/22/18 17:56 09/22/18 18:50 09/22/18 20:15 Bedside Glucose 103 253 H 258 H Urine Random 16.96 L Creatinine Urine Random Sodium 86 Urine Total Protein 97.0 H Test 09/23/18 02:04 09/23/18 05:01 09/23/18 08:02 Bedside Glucose 156 101 White Blood Count 6.8 Red Blood Count 2.60 L Hemoglobin 7.7 L Hematocrit 23.1 L Mean Corpuscular 88.8 Volume Mean Corpuscular 29.6 Hemoglobin Mean Corpuscular 33.3 Hemoglobin Concent Red Cell 13.8 Distribution Width Platelet Count 278 Mean Platelet Volume 9.4 Immature 0.100 Granulocytes % Neutrophils % 59.5 Lymphocytes % 32.2 Monocytes % 6.0 Eosinophils % 1.9 Basophils % 0.3 Nucleated Red Blood 0.0 Cells % Immature 0.010 Granulocytes # Neutrophils # 4.0 Lymphocytes # 2.2 Monocytes # 0.4 Eosinophils # 0.1 Basophils # 0.0 Nucleated Red Blood 0.0 Cells # Sodium Level 141 Potassium Level 3.6 Chloride Level 110 Carbon Dioxide Level 22 Anion Gap 9 Blood Urea Nitrogen 32 H Creatinine 1.14 H Glucose Level 116 # Calcium Level 8.7 Phosphorus Level 5.8 H Magnesium Level 1.5 L Albumin 2.7 L Medications Medication Current Medications IV Flush (NS 3 ml) 3 ml PER PROTOCOL IV ; Start 09/10/18 at 18:30 Ondansetron HCl (Zofran Inj) 4 mg Q6H PRN IV NAUSEA/VOMITING Last administered on 09/20/18 08:48; Admin Dose 4 MG; Start 09/10/18 at 18:30 Acetaminophen (Tylenol Tab) 650 mg Q6H PRN PO .PAIN 1-3 OR TEMP Last administered on 09/22/18 20:18; Admin Dose 650 MG; Start 09/10/18 at 18:30 Acetaminophen/ Hydrocodone Bitart ([place] (5/325)) 1 tab Q6H PRN PO .PAIN 4-6; Start 09/10/18 at 18:30 Insulin Aspart (Novolog Insulin Pen) NOVOLOG *MILD* ALGORITHM WITH MEALS BEDTIME SC Last administered on 09/22/18 20:17; Admin Dose 2 UNIT; Start 09/10/18 at 21:00 Hydralazine HCl (Apresoline) 10 mg Q4H PRN IV sbp >160 Last administered on 09/21/18 23:17; Admin Dose 10 MG; Start 09/10/18 at 18:30 Atorvastatin Calcium (Lipitor) 20 mg QHS PO Last administered on 09/22/18 20:19; Admin Dose 20 MG; Start 09/10/18 at 21:00 Ferrous Sulfate (Ferrous Sulfate (Ec)) 325 mg DAILY PO Last administered on 09/23/18at 08:03; Admin Dose 325 MG; Start 09/11/18 at 09:00 Sodium Hypochlorite (Dakin'S (Dilute )) 1 applic DAILY IRR Last administered on 09/18/18at 08:41; Admin Dose 1 APPLIC; Start 09/12/18 at 09:00; Status Hold Miscellaneous Information 1 ea NOTE XX ; Start 09/13/18 at 18:00 Glucose (Glutose) 15 gm Q15M PRN PO DECREASED GLUCOSE; Start 09/13/18 at 18:00 Glucose (Glutose) 22.5 gm Q15M PRN PO DECREASED GLUCOSE; Start 09/13/18 at 18:00 Dextrose (D50w Syringe) 25 ml Q15M PRN IV DECREASED GLUCOSE; Start 09/13/18 at 18:00 Dextrose (D50w Syringe) 50 ml Q15M PRN IV DECREASED GLUCOSE; Start 09/13/18 at 18:00 Glucagon (Glucagen) 1 mg Q15M PRN IM DECREASED GLUCOSE; Start 09/13/18 at 18:00 Glucose (Glutose) 15 gm Q15M PRN BUCCAL DECREASED GLUCOSE; Start 09/13/18 at 18:00 Insulin Aspart (Novolog Insulin Pen) 4 unit WITH MEALS SC Last administered on 09/19/18at 08:36; Admin Dose 4 UNIT; Start 09/14/18 at 12:00; Status Hold Insulin Glargine (Lantus) 14 units DAILY@2000 SC Last administered on 09/22/18at 20:18; Admin Dose 14 UNITS; Start 09/14/18 at 20:00 Morphine Sulfate (morphine) 6 mg Q4H PRN PO SEVERE PAIN LEVEL 7-10; Start 09/15/18 at 15:00 Daptomycin 355 mg/ Sodium Chloride 100 ml @ 200 mls/hr Q24H IVPB Last administered on 09/22/18at 16:35; Admin Dose 200 MLS/HR; Start 09/18/18 at 14:00 Benzonatate (Tessalon) 100 mg TID PRN PO cough Last administered on 09/23/18 08:06; Admin Dose 100 MG; Start 09/18/18 at 12:30 Diphenhydramine HCl (Benadryl) 25 mg Q6H PRN IV itching Last administered on 09/22/18 03:01; Admin Dose 25 MG; Start 09/20/18 at 09:00 Glipizide (Glucotrol) 5 mg AC BREAKFAST PO Last administered on 09/23/18 08:02; Admin Dose 5 MG; Start 09/21/18 at 07:00 Sodium Chloride (Deep Sea) 2 spray Q6H NASAL Last administered on 09/23/18at 06:50; Admin Dose 2 SPRAY; Start 09/20/18 at 18:30 Metoprolol Tartrate (Lopressor) 100 mg BID PO Last administered on 09/23/18 08 :03; Admin Dose 100 MG; Start 09/20/18 at 21:00 Amlodipine Besylate (Norvasc) 10 mg DAILY PO ; Start 09/24/18 at 09:00 TRINY TUCKER NP Sep 23, 2018 12:27
[2018-09-23] MEDS: DAPTOMYCIN IVPB SCH (13:09)
[2018-09-23] MEDS: SOD CHLORIDE 0.9% IVPB SCH (13:09)
[2018-09-23 16:08] VITALS: BP 171/82; PULSE 88; RESP 20
[2018-09-23 19:16] VITALS: BP 177/82; PULSE 101; RESP 18
[2018-09-23] MEDS: ATORVASTATIN 20 MG TAB PO SCH (21:02)
[2018-09-23] MEDS: ACETAMINOPHEN 325 MG TAB PO PRN (21:03)
[2018-09-23] MEDS: hydrALAzine 20 MG INJ IV PRN (21:04)
[2018-09-23] MEDS: INSULIN GLARGINE [LANTus] (100 UNITS/ML) SYG SC SCH (21:07)
[2018-09-23 23:09] VITALS: BP 134/73; PULSE 80
[2018-09-24 01:18] VITALS: BP 137/70; PULSE 84; RESP 18
[2018-09-24] MEDS: SALINE 0.65% 45 ML NAS SPRAY NASAL SCH ×4 (06:00→17:34)
[2018-09-24] MEDS: glipiZIDE 5 MG TAB PO SCH (08:05)
[2018-09-24] MEDS: INSULIN ASPART [NOVOLOG] 3 ML PEN SC SCH ×4 (08:07→21:10)
[2018-09-24 08:17] VITALS: BP 170/94; PULSE 101; RESP 18
[2018-09-24] MEDS ORDERED: POTASSIUM CHLORIDE (SR) 20 MEQ TAB PO STA (08:33)
--- NOTE | 2018-09-24 08:59 | PN ---
DATE: 09/24/2018 SUBJECTIVE: The patient is stable. No events overnight. OBJECTIVE: VITAL SIGNS: Blood pressure is 170/94, pulse 101, respirations 18, temperature 98.0. HEENT: Head is normocephalic. NECK: Supple. HEART: Regular rate. LUNGS: Show diminished breath sounds at the base. ABDOMEN: Soft, nontender to palpation without rebound or guarding. EXTREMITIES: Negative for clubbing, cyanosis, no edema on the right leg. Left foot is in a brace. DERMATOLOGIC: No rashes. MUSCULOSKELETAL: No joint effusion. NEUROLOGIC: No change in exam. MEDICATIONS: The patient's medications have been reviewed. LABORATORY DATA: Reviewed. BUN 32, creatinine 1.18, potassium 3.4, phosphorus 5.6. ASSESSMENT AND PLAN: 1. Nonoliguric acute kidney injury with previously normal baseline creatinine. Etiology is likely s econdary to hemodynamics, possible tubular injury from vancomycin nephrotoxicity. The patient's angel l function has been fluctuating but overall stable. At this point, continue current treatment plans, supportive care, renally dose all medicines. 2. Anemia. Monitor hemoglobin and hematocrit levels. 3. Mineral bone disorder. Monitor calcium and phosphorus levels. 3. Hypokalemia. Replete with potassium chloride. 4. Hypertension. Blood pressures are elevated, but improving. Continue current blood pressure vashti men. IV fluids were discontinued. 5. Left foot abscess, osteomyelitis, status post debridement with antibiotic spacer. 6. Sepsis. Continue current antibiotic regimen. 7. Hypomagnesemia. Continue to monitor and replete. 8. Diabetes. Continue current insulin regimen. Dictated By: CHARLES ROBBINS/NTS Conf#: [id number] DID#: [id number] CC: ROLANDA CEDILLO MD;*EndCC*
[2018-09-24] MEDS: FERROUS SULFATE (EC) 325 MG TAB PO SCH (09:10)
[2018-09-24] MEDS: AMLODIPINE 10 MG TAB PO SCH (09:19)
[2018-09-24] MEDS: METOPROLOL 100 MG TAB PO SCH ×2 (09:20→21:08)
[2018-09-24] MEDS: metFORMIN 500 MG TAB PO SCH ×2 (09:30→17:34)
--- NOTE | 2018-09-24 09:35 | CONS ---
Assessment/Plan Assessment/Plan Hospital Course (Demo Recall) No acute events over night, no fevers Antimicrobials: Daptomycin Microbiology: Left ankle wound culture growing Corynebacterium, strep pyogenous and MRSA PHYSICAL EXAMINATION: GENERAL: This is a well-developed middle-aged woman who is in no distress. HEENT: Head is atraumatic, normocephalic. NECK: Supple. CHEST: Rise symmetrical. Breath sounds diminished to bases. HEART: S1, S2. ABDOMEN: Soft. Bowel tones present. EXTREMITIES: Left lower extremity dressing intact ASSESSMENT: 1. S/p sepsis secondary to #2 2. Left foot cellulitis, abscess, osteomyelitis, status post multiple incision and drainage/ skin graft 3. Diabetes 4. Diabetic neuropathy/PAD. 5. Anemia. PLAN: Patient remains stable, status post left foot open second ray amputation with debridement and pinning of midfoot and ankle as well as impregnated antibiotic spacer placement 09/19/18, continue wound care per follow podiatry recommendations, anticipate dc on 6 more weeks IV abx Consultation Date/Type/Reason Admit Date/Time Sep 10, 2018 at 18:26 Initial Consult Date Type of Consult id Date/Time of Note DATE: 09/24/18 TIME: 09:34 Exam/Review of Systems Exam Vitals Vital Signs Date Temp Pulse Resp B/P (MAP) Pulse Ox O2 O2 Flow FiO2 Time Delivery Rate 09/24/18 98.0 101 18 170/94 94 Room Air 08:17 (119) Intake and Output 09/23/18 09/23/18 09/24/18 1414:59 22:59 06:59 IntakeIntake Total 980 ml 2210 ml 450 ml OutputOutput Total 800 ml 1200 ml BalanceBalance 180 ml 1010 ml 450 ml Results Result Diagram: 09/24/18 0437 09/24/18 0425 Results 24hrs Laboratory Tests Test 09/23/18 12:30 09/23/18 17:37 09/23/18 21:00 09/24/18 04:25 Bedside Glucose 204 146 302 H Sodium Level 139 Potassium Level 3.4 L Chloride Level 109 Carbon Dioxide Level 21 Anion Gap 9 Blood Urea Nitrogen 32 H Creatinine 1.18 H Glucose Level 231 #H Calcium Level 8.7 Phosphorus Level 5.6 H Magnesium Level 1.8 Albumin 2.7 L Test 09/24/18 04:37 09/24/18 08:04 09/24/18 09:29 White Blood Count 7.4 Red Blood Count 2.65 L Hemoglobin 7.8 L Hematocrit 23.4 L Mean Corpuscular 88.3 Volume Mean Corpuscular 29.4 Hemoglobin Mean Corpuscular 33.3 Hemoglobin Concent Red Cell 13.9 Distribution Width Platelet Count 304 Mean Platelet Volume 9.5 Immature 0.400 Granulocytes % Neutrophils % 65.7 Lymphocytes % 26.1 Monocytes % 5.8 Eosinophils % 1.6 Basophils % 0.4 Nucleated Red Blood 0.0 Cells % Immature 0.030 Granulocytes # Neutrophils # 4.9 Lymphocytes # 1.9 Monocytes # 0.4 Eosinophils # 0.1 Basophils # 0.0 Nucleated Red Blood 0.0 Cells # Bedside Glucose 249 H 168 Medications Medication Current Medications IV Flush (NS 3 ml) 3 ml PER PROTOCOL IV ; Start 09/10/18 at 18:30 Ondansetron HCl (Zofran Inj) 4 mg Q6H PRN IV NAUSEA/VOMITING Last administered on 09/20/18 08:48; Admin Dose 4 MG; Start 09/10/18 at 18:30 Acetaminophen (Tylenol Tab) 650 mg Q6H PRN PO .PAIN 1-3 OR TEMP Last administered on 09/23/18 21:03; Admin Dose 650 MG; Start 09/10/18 at 18:30 Acetaminophen/ Hydrocodone Bitart ([place] (5/325)) 1 tab Q6H PRN PO .PAIN 4-6; Start 09/10/18 at 18:30 Insulin Aspart (Novolog Insulin Pen) NOVOLOG *MILD* ALGORITHM WITH MEALS BEDTIME SC Last administered on 09/24/18 08:07; Admin Dose 3 UNIT; Start 09/10/18 at 21:00 Hydralazine HCl (Apresoline) 10 mg Q4H PRN IV sbp >160 Last administered on 09/23/18 21:04; Admin Dose 10 MG; Start 09/10/18 at 18:30 Atorvastatin Calcium (Lipitor) 20 mg QHS PO Last administered on 09/23/18 21:02; Admin Dose 20 MG; Start 09/10/18 at 21:00 Ferrous Sulfate (Ferrous Sulfate (Ec)) 325 mg DAILY PO Last administered on 09/24/18 09:10; Admin Dose 325 MG; Start 09/11/18 at 09:00 Sodium Hypochlorite (Dakin'S (Dilute )) 1 applic DAILY IRR Last administered on 09/18/18at 08:41; Admin Dose 1 APPLIC; Start 09/12/18 at 09:00; Status Hold Miscellaneous Information 1 ea NOTE XX ; Start 09/13/18 at 18:00 Glucose (Glutose) 15 gm Q15M PRN PO DECREASED GLUCOSE; Start 09/13/18 at 18:00 Glucose (Glutose) 22.5 gm Q15M PRN PO DECREASED GLUCOSE; Start 09/13/18 at 18:00 Dextrose (D50w Syringe) 25 ml Q15M PRN IV DECREASED GLUCOSE; Start 09/13/18 at 18:00 Dextrose (D50w Syringe) 50 ml Q15M PRN IV DECREASED GLUCOSE; Start 09/13/18 at 18:00 Glucagon (Glucagen) 1 mg Q15M PRN IM DECREASED GLUCOSE; Start 09/13/18 at 18:00 Glucose (Glutose) 15 gm Q15M PRN BUCCAL DECREASED GLUCOSE; Start 09/13/18 at 18:00 Insulin Glargine (Lantus) 14 units DAILY@2000 SC Last administered on 09/23/18at 21:07; Admin Dose 14 UNITS; Start 09/14/18 at 20:00 Morphine Sulfate (morphine) 6 mg Q4H PRN PO SEVERE PAIN LEVEL 7-10; Start 09/15/18 at 15:00 Daptomycin 355 mg/ Sodium Chloride 100 ml @ 200 mls/hr Q24H IVPB Last administered on 09/23/18at 13:09; Admin Dose 200 MLS/HR; Start 09/18/18 at 14:00 Benzonatate (Tessalon) 100 mg TID PRN PO cough Last administered on 09/23/18at 08:06; Admin Dose 100 MG; Start 09/18/18 at 12:30 Diphenhydramine HCl (Benadryl) 25 mg Q6H PRN IV itching Last administered on 09/22/18at 03:01; Admin Dose 25 MG; Start 09/20/18 at 09:00 Glipizide (Glucotrol) 5 mg AC BREAKFAST PO Last administered on 09/24/18at 08:05; Admin Dose 5 MG; Start 09/21/18 at 07:00 Metoprolol Tartrate (Lopressor) 100 mg BID PO Last administered on 09/24/18 09:20; Admin Dose 100 MG; Start 09/20/18 at 21:00 Amlodipine Besylate (Norvasc) 10 mg DAILY PO Last administered on 09/24/18 09:19; Admin Dose 10 MG; Start 09/24/18 at 09:00 Sodium Chloride ([place]) 2 spray Q6 NASAL Last administered on 09/23/18 14:53; Admin Dose 2 SPRAY; Start 09/23/18 at 13:30 Metformin HCl (Glucophage) 500 mg BID WITH MEALS PO Last administered on 09/24/18 09:30; Admin Dose 500 MG; Start 09/24/18 at 09:30 TRINY TUCKER NP Sep 24, 2018 09:35
--- NOTE | 2018-09-24 14:10 | PN ---
Date/Time of Note Date/Time of Note DATE: 09/24/18 TIME: 14:09 Objective Vitals Vital Signs Date Temp Pulse Resp B/P (MAP) Pulse Ox O2 O2 Flow FiO2 Time Delivery Rate 09/24/18 98.0 101 18 170/94 94 Room Air 08:17 (119) Intake and Output 09/23/18 09/23/18 09/24/18 1515:00 23:00 07:00 IntakeIntake Total 980 ml 2210 ml 450 ml OutputOutput Total 800 ml 1200 ml BalanceBalance 180 ml 1010 ml 450 ml Results Result Diagram: 09/24/18 0437 09/24/18 0425 Medications Medications Current Medications IV Flush (NS 3 ml) 3 ml PER PROTOCOL IV ; Start 09/10/18 at 18:30 Ondansetron HCl (Zofran Inj) 4 mg Q6H PRN IV NAUSEA/VOMITING Last administered on 09/20/18 08:48; Admin Dose 4 MG; Start 09/10/18 at 18:30 Acetaminophen (Tylenol Tab) 650 mg Q6H PRN PO .PAIN 1-3 OR TEMP Last administered on 09/23/18 21:03; Admin Dose 650 MG; Start 09/10/18 at 18:30 Acetaminophen/ Hydrocodone Bitart ([place] (5/325)) 1 tab Q6H PRN PO .PAIN 4-6; Start 09/10/18 at 18:30 Insulin Aspart (Novolog Insulin Pen) NOVOLOG *MILD* ALGORITHM WITH MEALS BEDTIME SC Last administered on 09/24/18 08:07; Admin Dose 3 UNIT; Start 09/10/18 at 21:00 Hydralazine HCl (Apresoline) 10 mg Q4H PRN IV sbp >160 Last administered on 09/23/18 21:04; Admin Dose 10 MG; Start 09/10/18 at 18:30 Atorvastatin Calcium (Lipitor) 20 mg QHS PO Last administered on 09/23/18 21:02; Admin Dose 20 MG; Start 09/10/18 at 21:00 Ferrous Sulfate (Ferrous Sulfate (Ec)) 325 mg DAILY PO Last administered on 09/24/18 09:10; Admin Dose 325 MG; Start 09/11/18 at 09:00 Sodium Hypochlorite (Dakin'S (Dilute 1/40)) 1 applic DAILY IRR Last administered on 09/18/18at 08:41; Admin Dose 1 APPLIC; Start 09/12/18 at 09:00; Status Hold Miscellaneous Information 1 ea NOTE XX ; Start 09/13/18 at 18:00 Glucose (Glutose) 15 gm Q15M PRN PO DECREASED GLUCOSE; Start 09/13/18 at 18:00 Glucose (Glutose) 22.5 gm Q15M PRN PO DECREASED GLUCOSE; Start 09/13/18 at 18:00 Dextrose (D50w Syringe) 25 ml Q15M PRN IV DECREASED GLUCOSE; Start 09/13/18 at 18:00 Dextrose (D50w Syringe) 50 ml Q15M PRN IV DECREASED GLUCOSE; Start 09/13/18 at 18:00 Glucagon (Glucagen) 1 mg Q15M PRN IM DECREASED GLUCOSE; Start 09/13/18 at 18:00 Glucose (Glutose) 15 gm Q15M PRN BUCCAL DECREASED GLUCOSE; Start 09/13/18 at 18:00 Insulin Glargine (Lantus) 14 units DAILY@2000 SC Last administered on 09/23/18at 21:07; Admin Dose 14 UNITS; Start 09/14/18 at 20:00 Morphine Sulfate (morphine) 6 mg Q4H PRN PO SEVERE PAIN LEVEL 7-10; Start 09/15/18 at 15:00 Daptomycin 355 mg/ Sodium Chloride 100 ml @ 200 mls/hr Q24H IVPB Last administered on 09/23/18 13:09; Admin Dose 200 MLS/HR; Start 09/18/18 at 14:00 Benzonatate (Tessalon) 100 mg TID PRN PO cough Last administered on 09/23/18at 08:06; Admin Dose 100 MG; Start 09/18/18 at 12:30 Diphenhydramine HCl (Benadryl) 25 mg Q6H PRN IV itching Last administered on 09/22/18 03:01; Admin Dose 25 MG; Start 09/20/18 at 09:00 Glipizide (Glucotrol) 5 mg AC BREAKFAST PO Last administered on 09/24/18 08:05; Admin Dose 5 MG; Start 09/21/18 at 07:00 Metoprolol Tartrate (Lopressor) 100 mg BID PO Last administered on 3/13/19at 09:20; Admin Dose 100 MG; Start 09/20/18 at 21:00 Amlodipine Besylate (Norvasc) 10 mg DAILY PO Last administered on 09/24/18at 09:19; Admin Dose 10 MG; Start 09/24/18 at 09:00 Sodium Chloride ([place]) 2 spray Q6 NASAL Last administered on 09/23/18at 14:53; Admin Dose 2 SPRAY; Start 09/23/18 at 13:30 Metformin HCl (Glucophage) 500 mg BID WITH MEALS PO Last administered on 09/24/18at 09:30; Admin Dose 500 MG; Start 09/24/18 at 09:30 Lidocaine (Xylocaine 1% (Mpf)) 5 ml ONCE ONCE SC ; Start 09/24/18 at 14:30; Stop 09/24/18 at 14:31; Status UNV VTE Prophylaxis Risk score (from [facility] [place], [place])>0 risk: 6 SCD applied (from [facility] [place], [place]): Yes Lines/Catheters IV Catheter Type: Galaviz in Place: No Assessment/Plan Hospital Course Subjective No acute changes overnight Objective Physical exam General: Patient is laying in bed and answers questions appropriately Mentation: Patient is alert and oriented 4, Head: Normocephalic atraumatic Eyes: EOMI, pupils reactive to light Neck: Supple, nontender, midline Respiratory: Clear to auscultation bilaterally Cardiovascular: regular rate, no obvious murmurs Gastrointestinal: non-tender to palpation, bowel sounds heard. Neurological: Moves all extremities spontaneously Skin: Left foot wound ulcer, bandaged, Assessment/Plan 1. Left foot wound with abscess and osteomyelitis s/p debridement and antibiotic spacer placement - Patient underwent amputation of L 2nd toe, debridement, placement of antibiotic spacer, and pinning of midfoot to ankle on 08/22/18. Patient doing well follow surgical intervention - Podiatry on board and appreciate recommendations. Continue current care. Plans for continued wound care in the clinic rather than home given mishap that occurred with wound vac and home health agency - ID on board and appreciate recommendations. Continue on Daptomycin - Acute on chronic left foot wound - arterial studies noted - MRI results noted as well - Wound cultures noted 2. Sepsis secondary to above left foot wound - remains afebrile and WBC nl - blood cultures negative - Wound cultures growing MRSA, strep and corynebacterium 3. Anemia, chronic disease - on iron supplements 4. Diabetes Mellitus - Insulin - ISS and accuchecks 5. Hypertension - will add amlodipine and increase as needed - continue BB 6. TYRA - most likely ATN given started after Vanc trough dose was elevated- - continue IVF and monitor for improvement in renal function 7. Disposition - HHIV abx being arranged, will need better glucose control before DC, PICC ordered ROLANDA CEDILLO Sep 24, 2018 14:10
[2018-09-24] MEDS ORDERED: LIDOCAINE 1% (MPF) 5 ML VIAL SC ONE (14:30)
[2018-09-24] MEDS: DAPTOMYCIN IVPB SCH (14:37)
[2018-09-24] MEDS: SOD CHLORIDE 0.9% IVPB SCH (14:37)
[2018-09-24 14:46] VITALS: BP 152/79; PULSE 82; RESP 16
[2018-09-24 19:34] VITALS: BP 159/79; PULSE 104; RESP 16
[2018-09-24] MEDS: ATORVASTATIN 20 MG TAB PO SCH (21:08)
[2018-09-24] MEDS: INSULIN GLARGINE [LANTus] (100 UNITS/ML) SYG SC SCH (21:11)
[2018-09-24] MEDS: BENZONATATE 100 MG CAP PO PRN (21:20)
[2018-09-25 01:40] VITALS: BP 128/71; PULSE 90; RESP 16
[2018-09-25] MEDS: SALINE 0.65% 45 ML NAS SPRAY NASAL SCH ×4 (05:39→17:43)
[2018-09-25] MEDS: INSULIN ASPART [NOVOLOG] 3 ML PEN SC SCH ×4 (08:00→21:00)
[2018-09-25 08:16] VITALS: BP 141/71; PULSE 96; RESP 18
[2018-09-25] MEDS: metFORMIN 500 MG TAB PO SCH ×2 (08:33→17:42)
[2018-09-25] MEDS: AMLODIPINE 10 MG TAB PO SCH (08:33)
[2018-09-25] MEDS: glipiZIDE 5 MG TAB PO SCH (08:34)
[2018-09-25] MEDS: FERROUS SULFATE (EC) 325 MG TAB PO SCH (08:34)
[2018-09-25] MEDS: METOPROLOL 100 MG TAB PO SCH ×2 (08:34→21:03)
--- NOTE | 2018-09-25 09:00 | PN ---
DATE: 09/25/2018 SUBJECTIVE: The patient is stable, no events overnight. OBJECTIVE: VITAL SIGNS: Blood pressure is 141/71, pulse 96, respirations 18, temperature 98.9. HEENT: Head is normocephalic. NECK: Supple. HEART: Regular rate. LUNGS: Show diminished breath sounds at the base. EXTREMITIES: Negative for clubbing, cyanosis, no edema. DERMATOLOGIC: No rashes. MUSCULOSKELETAL: No joint effusion. NEUROLOGIC: No change in exam. MEDICATIONS: The patient's medications have been reviewed. LABORATORY DATA: Shows a white count of 7.4, hemoglobin 7.8, platelet count is 304, sodium 136, pota ssium 3.5, BUN 28, creatinine 0.99, magnesium 1.5. ASSESSMENT AND PLAN: 1. Nonoliguric acute kidney injury with previously normal baseline creatinine. Etiology of acute ki dney injury is secondary to hemodynamics, possible tubular injury from vancomycin nephrotoxicity. Th e patient's renal function has been fluctuating, but overall stable. Continue current treatment plan s, supportive care, renally dose all medicines. 2. Anemia. Monitor hemoglobin and hematocrit levels. 3. Mineral bone disorder. Monitor calcium and phosphorus levels. 4. Hyperkalemia. Continue to monitor and replete. 5. Hypertension. Continue current blood pressure regimen. 6. Left foot abscess secondary to osteomyelitis. The patient is status debridement with antibiotic spacer. 7. Sepsis. Continue current treatment plan. 8. Hypomagnesemia. Continue to monitor and replete. 9. Diabetes. Continue current insulin regimen. Dictated By: CHARLES RAYMOND DO NR/NTS Conf#: [id number] DID#: [id number] CC: ROLANDA CEDILLO MD;*EndCC*
[2018-09-25] MEDS ORDERED: MAGNESIUM SULFATE 2 GM/50 ML 50 ML IVPB ONE (10:30)
--- NOTE | 2018-09-25 14:09 | PN ---
Date/Time of Note Date/Time of Note DATE: 09/25/18 TIME: 14:08 Objective Vitals Vital Signs Date Temp Pulse Resp B/P (MAP) Pulse Ox O2 O2 Flow FiO2 Time Delivery Rate 09/25/18 98.9 96 18 141/71 92 Room Air 08:16 (94) Intake and Output 09/24/18 09/24/18 09/25/18 1515:00 23:00 07:00 IntakeIntake Total 840 ml 578 ml OutputOutput Total 2000 ml BalanceBalance -1160 ml 578 ml Results Result Diagram: 09/24/18 0437 09/25/18 0501 Medications Medications Current Medications IV Flush (NS 3 ml) 3 ml PER PROTOCOL IV ; Start 09/10/18 at 18:30 Ondansetron HCl (Zofran Inj) 4 mg Q6H PRN IV NAUSEA/VOMITING Last administered on 09/20/18 08:48; Admin Dose 4 MG; Start 09/10/18 at 18:30 Acetaminophen (Tylenol Tab) 650 mg Q6H PRN PO .PAIN 1-3 OR TEMP Last administered on 09/23/18 21:03; Admin Dose 650 MG; Start 09/10/18 at 18:30 Acetaminophen/ Hydrocodone Bitart ([place] (5/325)) 1 tab Q6H PRN PO .PAIN 4-6; Start 09/10/18 at 18:30 Insulin Aspart (Novolog Insulin Pen) NOVOLOG *MILD* ALGORITHM WITH MEALS BEDTIME SC Last administered on 09/25/18 12:33; Admin Dose 3 UNIT; Start 09/10/18 at 21:00 Hydralazine HCl (Apresoline) 10 mg Q4H PRN IV sbp >160 Last administered on 09/23/18 21:04; Admin Dose 10 MG; Start 09/10/18 at 18:30 Atorvastatin Calcium (Lipitor) 20 mg QHS PO Last administered on 09/24/18 21 :08; Admin Dose 20 MG; Start 09/10/18 at 21:00 Ferrous Sulfate (Ferrous Sulfate (Ec)) 325 mg DAILY PO Last administered on 09/25/18 08:34; Admin Dose 325 MG; Start 09/11/18 at 09:00 Sodium Hypochlorite (Dakin'S (Dilute 40)) 1 applic DAILY IRR Last administered on 09/18/18at 08:41; Admin Dose 1 APPLIC; Start 09/12/18 at 09:00; Status Hold Miscellaneous Information 1 ea NOTE XX ; Start 09/13/18 at 18:00 Glucose (Glutose) 15 gm Q15M PRN PO DECREASED GLUCOSE; Start 09/13/18 at 18:00 Glucose (Glutose) 22.5 gm Q15M PRN PO DECREASED GLUCOSE; Start 09/13/18 at 18:00 Dextrose (D50w Syringe) 25 ml Q15M PRN IV DECREASED GLUCOSE; Start 09/13/18 at 18:00 Dextrose (D50w Syringe) 50 ml Q15M PRN IV DECREASED GLUCOSE; Start 09/13/18 at 18:00 Glucagon (Glucagen) 1 mg Q15M PRN IM DECREASED GLUCOSE; Start 09/13/18 at 18:00 Glucose (Glutose) 15 gm Q15M PRN BUCCAL DECREASED GLUCOSE; Start 09/13/18 at 18:00 Morphine Sulfate (morphine) 6 mg Q4H PRN PO SEVERE PAIN LEVEL 7-10; Start 09/15/18 at 15:00 Daptomycin 355 mg/ Sodium Chloride 100 ml @ 200 mls/hr Q24H IVPB Last administered on 09/24/18at 14:37; Admin Dose 200 MLS/HR; Start 09/18/18 at 14:00 Benzonatate (Tessalon) 100 mg TID PRN PO cough Last administered on 09/24/18 21:20; Admin Dose 100 MG; Start 09/18/18 at 12:30 Diphenhydramine HCl (Benadryl) 25 mg Q6H PRN IV itching Last administered on 09/22/18at 03:01; Admin Dose 25 MG; Start 09/20/18 at 09:00 Glipizide (Glucotrol) 5 mg AC BREAKFAST PO Last administered on 09/25/18 08:34; Admin Dose 5 MG; Start 09/21/18 at 07:00 Metoprolol Tartrate (Lopressor) 100 mg BID PO Last administered on 09/25/18 08:34; Admin Dose 100 MG; Start 09/20/18 at 21:00 Amlodipine Besylate (Norvasc) 10 mg DAILY PO Last administered on 09/25/18 08:33; Admin Dose 10 MG; Start 09/24/18 at 09:00 Sodium Chloride ([place]) 2 spray Q6 NASAL Last administered on 09/25/18at 11:34; Admin Dose 2 SPRAY; Start 09/23/18 at 13:30 IV Flush (NS 10 ml) 10 ml PRN PRN IV FLUSH LINE; Start 09/24/18 at 17:30 Metformin HCl (Glucophage) 1,000 mg BID WITH MEALS PO ; Start 09/25/18 at 18:00 VTE Prophylaxis Risk score (from Ns)>0 risk: 4 SCD applied (from Ns): Yes Lines/Catheters IV Catheter Type: Galaviz in Place: No Assessment/Plan Hospital Course Subjective No acute changes overnight Objective Physical exam General: Patient is laying in bed and answers questions appropriately Mentation: Patient is alert and oriented 4, Head: Normocephalic atraumatic Eyes: EOMI, pupils reactive to light Neck: Supple, nontender, midline Respiratory: Clear to auscultation bilaterally Cardiovascular: regular rate, no obvious murmurs Gastrointestinal: non-tender to palpation, bowel sounds heard. Neurological: Moves all extremities spontaneously Skin: Left foot wound ulcer, bandaged, Assessment/Plan 1. Left foot wound with abscess and osteomyelitis s/p debridement and antibiotic spacer placement - Patient underwent amputation of L 2nd toe, debridement, placement of antibiotic spacer, and pinning of midfoot to ankle on 08/22/18. Patient doing well follow surgical intervention - Podiatry on board and appreciate recommendations. Continue current care. Plans for continued wound care in the clinic rather than home given mishap that occurred with wound vac and home health agency - ID on board and appreciate recommendations. Continue on Daptomycin - Acute on chronic left foot wound - arterial studies noted - MRI results noted as well - Wound cultures noted 2. Sepsis secondary to above left foot wound - remains afebrile and WBC nl - blood cultures negative - Wound cultures growing MRSA, strep and corynebacterium 3. Anemia, chronic disease - on iron supplements 4. Diabetes Mellitus - Insulin - ISS and accuchecks 5. Hypertension - will add amlodipine and increase as needed - continue BB 6. TYRA - most likely ATN given started after Vanc trough dose was elevated- - continue IVF and monitor for improvement in renal function 7. Disposition - HHIV abx being arranged, will need better glucose control before DC, PICC placed ROLANDA CEDILLO Sep 25, 2018 14:09
[2018-09-25 14:15] VITALS: BP 154/73; PULSE 89; RESP 16
[2018-09-25] MEDS: SOD CHLORIDE 0.9% IVPB SCH (14:44)
[2018-09-25] MEDS: DAPTOMYCIN IVPB SCH (14:44)
[2018-09-25] MEDS: LINAGLIPTIN 5 MG TABLET PO SCH (15:33)
--- NOTE | 2018-09-25 15:59 | CONS ---
Assessment/Plan Assessment/Plan Hospital Course (Demo Recall) No acute events over night, no fevers awake, looks comfortable Antimicrobials: Daptomycin Microbiology: Left ankle wound culture growing Corynebacterium, strep pyogenous and MRSA PHYSICAL EXAMINATION: GENERAL: This is a well-developed middle-aged woman who is in no distress. HEENT: Head is atraumatic, normocephalic. NECK: Supple. CHEST: Rise symmetrical. Breath sounds diminished to bases. HEART: S1, S2. ABDOMEN: Soft. Bowel tones present. EXTREMITIES: Left lower extremity dressing intact ASSESSMENT: 1. S/p sepsis secondary to #2 2. Left foot cellulitis, abscess, osteomyelitis, status post multiple incision and drainage/ skin graft 3. Diabetes 4. Diabetic neuropathy/PAD. 5. Anemia. PLAN: Patient remains stable, status post left foot open second ray amputation with debridement and pinning of midfoot and ankle as well as impregnated a ntibiotic spacer placement 09/19/18, continue wound care per follow podiatry recommendations, anticipate dc on 6 more weeks IV abx Consultation Date/Type/Reason Admit Date/Time Sep 10, 2018 at 18:26 Initial Consult Date Type of Consult id Date/Time of Note DATE: 09/25/18 TIME: 15:59 Exam/Review of Systems Exam Vitals Vital Signs Date Temp Pulse Resp B/P (MAP) Pulse Ox O2 O2 Flow FiO2 Time Delivery Rate 09/25/18 98.4 89 16 154/73 92 Room Air 14:15 (100) Intake and Output 09/24/18 09/24/18 09/25/18 1515:00 23:00 07:00 IntakeIntake Total 840 ml 578 ml OutputOutput Total 2000 ml BalanceBalance -1160 ml 578 ml Results Result Diagram: 09/24/18 0437 09/25/18 0501 Results 24hrs Laboratory Tests Test 09/24/18 17:33 09/24/18 21:07 09/25/18 02:06 09/25/18 05:01 Bedside Glucose 281 H 238 H 184 Sodium Level 136 Potassium Level 3.5 Chloride Level 107 Carbon Dioxide Level 21 Anion Gap 8 Blood Urea Nitrogen 28 H Creatinine 0.99 Est Glomerular 59 L Filtrat Rate mL/min Glucose Level 163 Calcium Level 8.7 Phosphorus Level 4.8 Magnesium Level 1.5 L Test 09/25/18 08:15 09/25/18 12:29 Bedside Glucose 135 224 H Medications Medication Current Medications IV Flush (NS 3 ml) 3 ml PER PROTOCOL IV ; Start 09/10/18 at 18:30 Ondansetron HCl (Zofran Inj) 4 mg Q6H PRN IV NAUSEA/VOMITING Last administered on 09/20/18 08:48; Admin Dose 4 MG; Start 09/10/18 at 18:30 Acetaminophen (Tylenol Tab) 650 mg Q6H PRN PO .PAIN 1-3 OR TEMP Last administered on 09/23/18 21:03; Admin Dose 650 MG; Start 09/10/18 at 18:30 Acetaminophen/ Hydrocodone Bitart ([place] (5/325)) 1 tab Q6H PRN PO .PAIN 4-6; Start 09/10/18 at 18:30 Insulin Aspart (Novolog Insulin Pen) NOVOLOG *MILD* ALGORITHM WITH MEALS BEDTIME SC Last administered on 09/25/18 12:33; Admin Dose 3 UNIT; Start 09/10/18 at 21:00 Hydralazine HCl (Apresoline) 10 mg Q4H PRN IV sbp >160 Last administered on 09/23/18 21:04; Admin Dose 10 MG; Start 09/10/18 at 18:30 Atorvastatin Calcium (Lipitor) 20 mg QHS PO Last administered on 09/24/18 21:08; Admin Dose 20 MG; Start 09/10/18 at 21:00 Ferrous Sulfate (Ferrous Sulfate (Ec)) 325 mg DAILY PO Last administered on 09/25/18 08:34; Admin Dose 325 MG; Start 09/11/18 at 09:00 Sodium Hypochlorite (Dakin'S (Dilute )) 1 applic DAILY IRR Last administered on 09/18/18 08:41; Admin Dose 1 APPLIC; Start 09/12/18 at 09:00; Status Hold Miscellaneous Information 1 ea NOTE XX ; Start 09/13/18 at 18:00 Glucose (Glutose) 15 gm Q15M PRN PO DECREASED GLUCOSE; Start 09/13/18 at 18:00 Glucose (Glutose) 22.5 gm Q15M PRN PO DECREASED GLUCOSE; Start 09/13/18 at 18:00 Dextrose (D50w Syringe) 25 ml Q15M PRN IV DECREASED GLUCOSE; Start 09/13/18 at 18:00 Dextrose (D50w Syringe) 50 ml Q15M PRN IV DECREASED GLUCOSE; Start 09/13/18 at 18:00 Glucagon (Glucagen) 1 mg Q15M PRN IM DECREASED GLUCOSE; Start 09/13/18 at 18:00 Glucose (Glutose) 15 gm Q15M PRN BUCCAL DECREASED GLUCOSE; Start 09/13/18 at 18:00 Morphine Sulfate (morphine) 6 mg Q4H PRN PO SEVERE PAIN LEVEL 7-10; Start 09/15/18 at 15:00 Daptomycin 355 mg/ Sodium Chloride 100 ml @ 200 mls/hr Q24H IVPB Last administered on 09/25/18 14:44; Admin Dose 200 MLS/HR; Start 09/18/18 at 14:00 Benzonatate (Tessalon) 100 mg TID PRN PO cough Last administered on 09/24/18 21:20; Admin Dose 100 MG; Start 09/18/18 at 12:30 Diphenhydramine HCl (Benadryl) 25 mg Q6H PRN IV itching Last administered on 09/22/18at 03:01; Admin Dose 25 MG; Start 09/20/18 at 09:00 Glipizide (Glucotrol) 5 mg AC BREAKFAST PO Last administered on 09/25/18 08:34; Admin Dose 5 MG; Start 09/21/18 at 07:00 Metoprolol Tartrate (Lopressor) 100 mg BID PO Last administered on 09/25/18 08:34; Admin Dose 100 MG; Start 09/20/18 at 21:00 Amlodipine Besylate (Norvasc) 10 mg DAILY PO Last administered on 09/25/18 08:33; Admin Dose 10 MG; Start 09/24/18 at 09:00 Sodium Chloride ([place]) 2 spray Q6 NASAL Last administered on 09/25/18 11:34; Admin Dose 2 SPRAY; Start 09/23/18 at 13:30 IV Flush (NS 10 ml) 10 ml PRN PRN IV FLUSH LINE; Start 09/24/18 at 17:30 Metformin HCl (Glucophage) 1,000 mg BID WITH MEALS PO ; Start 09/25/18 at 18:00 Linagliptin (Tradjenta) 5 mg DAILY PO Last administered on 3/14/19at 15:33; Admin Dose 5 MG; Start 09/25/18 at 14:30 TRINY TUCKER NP Sep 25, 2018 15:59
[2018-09-25] MEDS: ACETAMINOPHEN 325 MG TAB PO PRN (20:01)
[2018-09-25 20:06] VITALS: BP 158/76; PULSE 100; RESP 18
[2018-09-25] MEDS: ATORVASTATIN 20 MG TAB PO SCH (21:04)
[2018-09-26 02:00] VITALS: BP 135/72; PULSE 83; RESP 18
[2018-09-26] MEDS: SALINE 0.65% 45 ML NAS SPRAY NASAL SCH ×4 (06:00→17:43)
[2018-09-26] MEDS: INSULIN ASPART [NOVOLOG] 3 ML PEN SC SCH ×3 (08:00→17:44)
[2018-09-26 08:01] VITALS: BP 162/78; PULSE 98; RESP 18
[2018-09-26] MEDS: AMLODIPINE 10 MG TAB PO SCH (08:08)
[2018-09-26] MEDS: FERROUS SULFATE (EC) 325 MG TAB PO SCH (08:09)
[2018-09-26] MEDS: glipiZIDE 5 MG TAB PO SCH (08:09)
[2018-09-26] MEDS: METOPROLOL 100 MG TAB PO SCH (08:09)
[2018-09-26] MEDS: LINAGLIPTIN 5 MG TABLET PO SCH (08:09)
[2018-09-26] MEDS: metFORMIN 500 MG TAB PO SCH ×2 (08:09→17:43)
[2018-09-26] MEDS ORDERED: MAGNESIUM OXIDE 400 MG TAB PO ONE (09:00)
[2018-09-26] MEDS: BENZONATATE 100 MG CAP PO PRN (09:05)
--- NOTE | 2018-09-26 09:47 | PN ---
DATE: 09/26/2018 SUBJECTIVE: Patient is stable. No events overnight. OBJECTIVE: VITAL SIGNS: Blood pressure is 162/78, pulse 98, respiration 18, temperature 98.7. HEENT: Head is normocephalic. NECK: Supple. HEART: Regular rate. LUNGS: Show diminished breath sounds at base. ABDOMEN: Soft, nontender to palpation without rebound or guarding. EXTREMITIES: Negative for clubbing, cyanosis. Positive cast over her left lower extremity. DERMATOLOGIC: No rashes. MUSCULOSKELETAL: No joint effusion. NEUROLOGIC: No change in exam. MEDICATIONS: Reviewed. LABORATORY DATA: Shows sodium 140, potassium 3.5, chloride 110, BUN 24, creatinine 0.88, phosphorus 5.1. ASSESSMENT AND PLAN: 1. Nonoliguric acute kidney injury with previously normal baseline creatinine. Etiology of acute ki dney injury is secondary to hemodynamics, possible tubular injury from vancomycin nephrotoxicity. Th e patient's renal function appears to have improved. At this point, continue current treatment plans , supportive care, renally dose all meds. 2. Anemia. Monitor hemoglobin and hematocrit levels. 3. Mineral bone disorder, monitor calcium and phosphorus levels. 4. Hyperkalemia, improved. 5. Hypertension. Continue current blood pressure regimen. 6. Left foot abscess and osteomyelitis. Patient is status post debridement. 7. Sepsis. Continue current treatment plan. 8. Hypomagnesemia. Continue to monitor and replete as needed. 9. Diabetes. Continue current insulin regimen. We will follow the patient as needed. Dictated By: CHARLES RAYMOND DO NR/NTS Conf#: [id number] DID#: [id number] CC: ROLANDA CEDILLO MD;*EndCC*
[2018-09-26] MEDS ORDERED: GUAIFENESIN/CODEINE 5ML CUP PO PRN (10:30)
[2018-09-26] MEDS ORDERED: METF-849 PO (10:42)
[2018-09-26] MEDS ORDERED: FER325 PO (10:42)
[2018-09-26] MEDS ORDERED: OMEG-135 PO (10:42)
[2018-09-26] MEDS ORDERED: GLIP5TAB13 PO (10:42)
[2018-09-26] MEDS ORDERED: ATOR20TA38 PO (10:42)
[2018-09-26] MEDS ORDERED: METO-407 PO (10:42)
[2018-09-26] MEDS ORDERED: SITA100T11 PO (10:42)
[2018-09-26] MEDS ORDERED: AMLO-147 PO (10:42)
[2018-09-26] MEDS ORDERED: CODE5LIQ2 PO (10:42)
[2018-09-26] MEDS ORDERED: POTASSIUM CHLORIDE 20 MEQ POWDER FOR ORAL SOLN PO ONE (11:00)
--- NOTE | 2018-09-26 14:08 | DS ---
Date/Time of Note Date/Time of Note DATE: 09/26/18 TIME: 14:08 Discharge Summary Admission/Discharge Info Admit Date/Time Sep 10, 2018 at 18:26 Discharge Date/Time Patient Condition: Stable Hospital Course Patient is a female with a past medical history significant for recurrent osteomyelitis and a left foot wound who presented to [facility] after a failed left foot graft due to improper wound care. Patient had an abscess and osteomyelitis of the left foot which was status post debridement with antibiotic spacer placement by podiatry. Patient was seen by infectious disease and as patient wanted to attempt limb salvage, patient will be continued on IV antibiotic for a total of 6 weeks. Patient is doing well, on day of discharge patient had an abnormally low hemoglobin however on repeat it appeared that the previous hemoglobin was a lab error as there was no significant drop. Patient also had a mild cough but had no other signs of sepsis or infection, likely just had some throat irritation or possibly an upper respiratory infection that is not severe and possibly viral. However due to mary cooper's long hospital stay patient received chest x-ray which was clear for any signs of pneumonia and patient will be discharged with some cough medication. Patient was also given new prescriptions for diabetes as well as for her hypertension. Everything was explained to the patient and the patient's son and they will follow-up with podiatry as soon as possible. No home health per podiatry recommendations as the previous home health wound nurse likely because the previous failure of the graft. Patient understands and has no further questions Discharge diagnosis Left foot wound with abscess and osteomyelitis status post debridement and antibiotic spacer placement Sepsis, resolved Cough, mild Anemia, chronic disease Diabetes mellitus Hypertension Acute kidney injury, resolved Home Meds Active Scripts Sitagliptin* (Januvia*) 100 Mg Tablet, 100 MG PO DAILY, #30 TAB 1 Refill Prov:ROLANDA CEDILLO 09/26/18 Metformin* (Glucophage*) 500 Mg Tab, 1000 MG PO BID WITH MEALS for 30 Days, #60 TAB 1 Refill Prov:ROLANDA CEDILLO 09/26/18 Metoprolol Tartrate* (Lopressor*) 100 Mg Tablet, 100 MG PO BID for 30 Days, #60 TAB 1 Refill Prov:ROLANDA CEDILLO 09/26/18 Amlodipine Besylate* (Amlodipine Besylate*) 10 Mg Tablet, 10 MG PO DAILY for 30 Days, #30 TAB 1 Refill Prov:ROLANDA CEDILLO 09/26/18 [place]-3 Fatty Acids/Fish Oil (Fish Oil 1,000 mg Capsule) 1 Each Capsule, 1 EACH PO DAILY for 30 Days, #30 CAP Prov:ROLANDA CEDILLO 09/26/18 Atorvastatin Calcium* (Atorvastatin Calcium*) 20 Mg Tablet, 20 MG PO QHS for 30 Days, #30 TAB 1 Refill Prov:ROLANDA CEDILLO 09/26/18 Glipizide* (Glipizide*) 5 Mg Tablet, 5 MG PO AC BREAKFAST for 30 Days, #30 TAB 1 Refill Prov:ROLANDA CEDILLO 09/26/18 Ferrous Sulfate* (Ferrous Sulfate*) 325 Mg Tabec, 325 MG PO DAILY for 30 Days, #30 TAB Prov:ROLANDA CEDILLO 09/26/18 Reported Medications Cholecalciferol (Vitamin D3) 5,000 Unit Tablet, 5000 UNIT PO DAILY, TAB 09/10/18 Ascorbic Acid* (Vitamin C*) 500 Mg Capsule.sa, 500 MG PO DAILY, CAP 09/10/18 Metoprolol Tartrate* (Lopressor*) 25 Mg Tab, 25 MG PO BID, #60 TAB 08/25/18 Metformin Hcl* (Metformin Hcl*) 500 Mg Tablet, 500 MG PO WITH BREAKFAST DINNE, #60 TAB 08/25/18 Primary Care Provider Not On Staff Doctor Time spent on discharge: > 30 minutes Pending Labs Laboratory Tests Test 09/25/18 17:39 09/25/18 21:02 09/26/18 05:03 09/26/18 08:07 Bedside 155 159 107 Glucose mg/dL (70-220) mg/dL (70-220) mg/dL (70-220) White Blood 7.5 Count 10^3/ul (4.8-1 0.8) Red Blood 2.32 Count 10^6/ul (4.20- 5.40) Hemoglobin 7.0 g/dl (12.0-16. 0) Hematocrit 20.5 % (37.0-47.0) Mean 88.4 Corpuscular fl (82.0-101.0 Volume ) Mean 30.2 Corpuscular pg (29.0-33.0) Hemoglobin Mean 34.1 Corpuscular g/dl (32.0-37. Hemoglobin Conc 0) ent Red Cell 13.8 Distribution % (11.5-14.5) Width Platelet Count 264 10^3/UL (140-4 15) Mean Platelet 9.7 Volume fl (7.4-10.4) Immature 0.400 Granulocytes % % (0.001-0.429 ) Neutrophils % 62.5 % (39.0-77.0) Lymphocytes % 26.5 % (15.0-51.0) Monocytes % 6.9 % (0.0-11.0) Eosinophils % 3.3 % (0.0-7.0) Basophils % 0.4 % (0.0-2.0) Nucleated Red 0.0 Blood Cells % /100WBC (0.0-0 .0) Immature 0.030 Granulocytes # 10^3/ul (0.0-0 .031) Neutrophils # 4.7 10^3/ul (1.6-7 .5) Lymphocytes # 2.0 10^3/ul (0.8-2 .9) Monocytes # 0.5 10^3/ul (0.3-0 .9) Eosinophils # 0.3 10^3/ul (0.0-0 .5) Basophils # 0.0 10^3/ul (0.0-0 .1) Nucleated Red 0.0 Blood Cells # 10^3/ul (0.0-0 .0) Sodium Level 140 mmol/L (135-14 4) Potassium 3.5 Level mmol/L (3.5-5. 1) Chloride Level 110 mmol/L (97-110 ) Carbon Dioxide 20 Level mmol/L (21-31) Anion Gap 10 (5-13) Blood Urea 24 Nitrogen mg/dl (7-20) Creatinine 0.88 mg/dl (0.44-1. 00) Est Glomerular > 60 Filtrat mL/min (>60) Rate mL/min Glucose Level 92 mg/dl (70-220) Calcium Level 8.7 mg/dl (8.4-10. 2) Phosphorus 5.1 Level mg/dl (2.5-4.9 ) Magnesium 1.7 Level mg/dl (1.7-2.5 ) Creatine 62 Kinase IU/L (23-200) Test 09/26/18 10:41 09/26/18 12:26 Hemoglobin 8.0 g/dl (12.0-16.0 ) Hematocrit 23.1 % (37.0-47.0) Bedside 123 Glucose mg/dL (70-220) ROLANDA CEDILLO Sep 26, 2018 14:08
--- NOTE | 2018-09-26 14:09 | PDOCDIS ---
Discharge Instructions CONDITION [id number] Patient Condition: [id number] Stable FOLLOW UP/APPOINTMENTS Follow-up Plan Please follow-up with your primary care provider as soon as possible. Please make an appointment with your digital cartographer, Dr. Luo as soon as possible for wound care. Please note new changes to medications. ROLANDA CEDILLO Sep 26, 2018 14:09
[2018-09-26] MEDS: SOD CHLORIDE 0.9% IVPB SCH (14:27)
[2018-09-26] MEDS: DAPTOMYCIN IVPB SCH (14:27)
--- NOTE | 2018-09-26 14:27 | CONS ---
Assessment/Plan Assessment/Plan Hospital Course (Demo Recall) No acute events over night, no fevers, awake, looks comfortable Antimicrobials: Daptomycin Microbiology: Left ankle wound culture growing Corynebacterium, strep pyogenous and MRSA PHYSICAL EXAMINATION: GENERAL: This is a well-developed middle-aged woman who is in no distress. HEENT: Head is atraumatic, normocephalic. NECK: Supple. CHEST: Rise symmetrical. Breath sounds diminished to bases. HEART: S1, S2. ABDOMEN: Soft. Bowel tones present. EXTREMITIES: Left lower extremity dressing intact ASSESSMENT: 1. S/p sepsis secondary to #2 2. Left foot cellulitis, abscess, osteomyelitis, status post multiple incision and drainage/ skin graft 3. Diabetes 4. Diabetic neuropathy/PAD. 5. Anemia. PLAN: Patient remains stable, status post left foot open second ray amputation with debridement and pinning of midfoot and ankle as well as impregnated antibiotic spacer placement 09/19/18, continue wound care per follow podiatry recommendations, pending dc on 6 more weeks IV abx Consultation Date/Type/Reason Admit Date/Time Sep 10, 2018 at 18:26 Initial Consult Date Type of Consult id Date/Time of Note DATE: 09/26/18 TIME: 14:27 Exam/Review of Systems Exam Vitals Vital Signs Date Temp Pulse Resp B/P (MAP) Pulse Ox O2 O2 Flow FiO2 Time Delivery Rate 09/26/18 98.7 98 18 162/78 97 Room Air 08:01 (106) Intake and Output 09/25/18 09/25/18 09/26/18 1515:00 23:00 07:00 IntakeIntake Total 890 ml 580 ml OutputOutput Total 800 ml 650 ml 600 ml BalanceBalance 90 ml -70 ml -600 ml Results Result Diagram: 09/26/18 1041 09/26/18 0503 Results 24hrs Laboratory Tests Test 09/25/18 17:39 09/25/18 21:02 09/26/18 05:03 09/26/18 08:07 Bedside Glucose 155 159 107 White Blood Count 7.5 Red Blood Count 2.32 L Hemoglobin 7.0 L Hematocrit 20.5 L Mean Corpuscular 88.4 Volume Mean Corpuscular 30.2 Hemoglobin Mean Corpuscular 34.1 Hemoglobin Concent Red Cell 13.8 Distribution Width Platelet Count 264 Mean Platelet Volume 9.7 Immature 0.400 Granulocytes % Neutrophils % 62.5 Lymphocytes % 26.5 Monocytes % 6.9 Eosinophils % 3.3 Basophils % 0.4 Nucleated Red Blood 0.0 Cells % Immature 0.030 Granulocytes # Neutrophils # 4.7 Lymphocytes # 2.0 Monocytes # 0.5 Eosinophils # 0.3 Basophils # 0.0 Nucleated Red Blood 0.0 Cells # Sodium Level 140 Potassium Level 3.5 Chloride Level 110 Carbon Dioxide Level 20 L Anion Gap 10 Blood Urea Nitrogen 24 H Creatinine 0.88 Est Glomerular > 60 Filtrat Rate mL/min Glucose Level 92 # Calcium Level 8.7 Phosphorus Level 5.1 H Magnesium Level 1.7 Creatine Kinase 62 Test 09/26/18 10:41 09/26/18 12:26 Hemoglobin 8.0 L Hematocrit 23.1 L Bedside Glucose 123 Medications Medication Current Medications IV Flush (NS 3 ml) 3 ml PER PROTOCOL IV ; Start 09/10/18 at 18:30 Ondansetron HCl (Zofran Inj) 4 mg Q6H PRN IV NAUSEA/VOMITING Last administered on 09/20/18 08:48; Admin Dose 4 MG; Start 09/10/18 at 18:30 Acetaminophen (Tylenol Tab) 650 mg Q6H PRN PO .PAIN 1-3 OR TEMP Last administered on 09/25/18 20:01; Admin Dose 650 MG; Start 09/10/18 at 18:30 Acetaminophen/ Hydrocodone Bitart ([place] (5/325)) 1 tab Q6H PRN PO .PAIN 4-6; Start 09/10/18 at 18:30 Insulin Aspart (Novolog Insulin Pen) NOVOLOG *MILD* ALGORITHM WITH MEALS BEDTIME SC Last administered on 09/25/18 17:46; Admin Dose 1 UNIT; Start 09/10/18 at 21:00 Hydralazine HCl (Apresoline) 10 mg Q4H PRN IV sbp >160 Last administered on 09/23/18 21:04; Admin Dose 10 MG; Start 09/10/18 at 18:30 Atorvastatin Calcium (Lipitor) 20 mg QHS PO Last administered on 09/25/18 21:04; Admin Dose 20 MG; Start 09/10/18 at 21:00 Ferrous Sulfate (Ferrous Sulfate (Ec)) 325 mg DAILY PO Last administered on 3/15/19at 08:09; Admin Dose 325 MG; Start 09/11/18 at 09:00 Sodium Hypochlorite (Dakin'S (Dilute )) 1 applic DAILY IRR Last administered on 09/18/18 08:41; Admin Dose 1 APPLIC; Start 09/12/18 at 09:00; Status Hold Miscellaneous Information 1 ea NOTE XX ; Start 09/13/18 at 18:00 Glucose (Glutose) 15 gm Q15M PRN PO DECREASED GLUCOSE; Start 09/13/18 at 18:00 Glucose (Glutose) 22.5 gm Q15M PRN PO DECREASED GLUCOSE; Start 09/13/18 at 18:00 Dextrose (D50w Syringe) 25 ml Q15M PRN IV DECREASED GLUCOSE; Start 09/13/18 at 18:00 Dextrose (D50w Syringe) 50 ml Q15M PRN IV DECREASED GLUCOSE; Start 09/13/18 at 18:00 Glucagon (Glucagen) 1 mg Q15M PRN IM DECREASED GLUCOSE; Start 09/13/18 at 18:00 Glucose (Glutose) 15 gm Q15M PRN BUCCAL DECREASED GLUCOSE; Start 09/13/18 at 18:00 Morphine Sulfate (morphine) 6 mg Q4H PRN PO SEVERE PAIN LEVEL 7-10; Start 09/15/18 at 15:00 Daptomycin 355 mg/ Sodium Chloride 100 ml @ 200 mls/hr Q24H IVPB Last admi nistered on 09/25/18 14:44; Admin Dose 200 MLS/HR; Start 09/18/18 at 14:00 Benzonatate (Tessalon) 100 mg TID PRN PO cough Last administered on 09/26/18 09:05; Admin Dose 100 MG; Start 09/18/18 at 12:30 Diphenhydramine HCl (Benadryl) 25 mg Q6H PRN IV itching Last administered on 09/22/18 03:01; Admin Dose 25 MG; Start 09/20/18 at 09:00 Glipizide (Glucotrol) 5 mg AC BREAKFAST PO Last administered on 09/26/18 08:09; Admin Dose 5 MG; Start 09/21/18 at 07:00 Metoprolol Tartrate (Lopressor) 100 mg BID PO Last administered on 09/26/18 08:09; Admin Dose 100 MG; Start 09/20/18 at 21:00 Amlodipine Besylate (Norvasc) 10 mg DAILY PO Last administered on 09/26/18at 08:08; Admin Dose 10 MG; Start 09/24/18 at 09:00 Sodium Chloride ([place]) 2 spray Q6 NASAL Last administered on 09/26/18at 12:25; Admin Dose 2 SPRAY; Start 09/23/18 at 13:30 IV Flush (NS 10 ml) 10 ml PRN PRN IV FLUSH LINE; Start 09/24/18 at 17:30 Metformin HCl (Glucophage) 1,000 mg BID WITH MEALS PO Last administered on 09/26/18 08:09; Admin Dose 1,000 MG; Start 09/25/18 at 18:00 Linagliptin (Tradjenta) 5 mg DAILY PO Last administered on 09/26/18at 08:09; Admin Dose 5 MG; Start 09/25/18 at 14:30 Guaifenesin/ Codeine Phosphate (Robitussin Ac Liquid Cup) 5 ml Q4H PRN PO cough; Start 09/26/18 at 10:30 TRINY TUCKER NP Sep 26, 2018 14:27
[2018-09-26 14:55] VITALS: BP 137/61; PULSE 93; RESP 16
== END 2018-09-26 17:48 | disposition home health service (06) | DRG 854 ==
LOC: E/R 15:44 → 2NE 18:26
PROVIDERS: ADMIT Internal Medicine; ATTEND Internal Medicine
PROC: 0LBW0ZZ Excision of Left Foot Tendon, Open Approach (ICD-10-PCS; 2018-09-11)
PROC: 0KBW0ZZ Excision of Left Foot Muscle, Open Approach (ICD-10-PCS; 2018-09-11)
PROC: 30233N1 Transfusion of Nonautologous Red Blood Cells into Peripheral Vein, Percutaneous Approach (ICD-10-PCS; 2018-09-11)
PROC: 0JBR0ZZ Excision of Left Foot Subcutaneous Tissue and Fascia, Open Approach (ICD-10-PCS; 2018-09-19)
PROC: 0QBP0ZZ Excision of Left Metatarsal, Open Approach (ICD-10-PCS; 2018-09-19)
PROC: 0SHG34Z Insertion of Internal Fixation Device into Left Ankle Joint, Percutaneous Approach (ICD-10-PCS; 2018-09-19)
PROC: 0SH Lower Joints, Insertion (ICD-10-PCS; 2018-09-19)
PROC: 0SS Lower Joints, Reposition (ICD-10-PCS; 2018-09-19)
PROC: 3E0102A Introduction of Anti-Infective Envelope into Subcutaneous Tissue, Open Approach (ICD-10-PCS; 2018-09-19)
PROC: 0Y6S0Z0 Detachment at Left 2nd Toe, Complete, Open Approach (ICD-10-PCS; principal; 2018-09-19 19:30)
PROC: 02HV33Z Insertion of Infusion Device into Superior Vena Cava, Percutaneous Approach (ICD-10-PCS; 2018-09-24)
DX: A41.9 Sepsis, unspecified organism (principal); E11.52 Type 2 diabetes mellitus with diabetic peripheral angiopathy with gangrene; L03.116 Cellulitis of left lower limb; L02.612 Cutaneous abscess of left foot; N17.9 Acute kidney failure, unspecified; L97.526 Non-pressure chronic ulcer of other part of left foot with bone involvement without evidence of necrosis; M86.172 Other acute osteomyelitis, left ankle and foot; T86.821 Skin graft (allograft) (autograft) failure; M25.372 Other instability, left ankle; E78.5 Hyperlipidemia, unspecified; I10 Essential (primary) hypertension; E11.69 Type 2 diabetes mellitus with other specified complication; E11.621 Type 2 diabetes mellitus with foot ulcer; D63.8 Anemia in other chronic diseases classified elsewhere; E83.42 Hypomagnesemia; E87.6 Hypokalemia; R05 Cough; E11.610 Type 2 diabetes mellitus with diabetic neuropathic arthropathy; E11.51 Type 2 diabetes mellitus with diabetic peripheral angiopathy without gangrene; E87.8 Other disorders of electrolyte and fluid balance, not elsewhere classified; Y83.2 Surgical operation with anastomosis, bypass or graft as the cause of abnormal reaction of the patient, or of later complication, without mention of misadventure at the time of the procedure
CPT/HCPCS: 36415; 36430; 36569; 71045; 73718; 73721; 76937; 80048; 80053; 80069; 80202; 81001; 81003; 82043; 82550; 82962; 83036; 83605; 83735; 84100; 84155; 84300; 84484; 85014; 85018; 85025; 85610; 85651; 85730; 86140; 86850; 86900; 86901; 86920; 87040; 87045; 87070; 87086; 88305; 88311; 93005; 93926; 96365; 96367; C1713; J0360; J1200; J1815; J2405; J2543; J3010; J3370; J3475; J7030; J7042; J7050; P9016

== ENCOUNTER 2019-02-04 11:24 | Emergency (ER) | payer OTHER ==
[~2019-02-04] VITALS: Ht 157.5 cm; Wt 75.0 kg
[~2019-02-04 11:24] MED LIST changes: +AMLO-147 PO; +ASCO500C7 PO; +CHOL500010 PO; +CODE5LIQ2 PO; +METF-849 PO; -METF500T24 PO; +METO-407 PO; -METO-448 PO; +NAPR-985 PO; +OMEG-135 PO; +SITA100T11 PO
[2019-02-04 11:36] VITALS: BP 106/55; PULSE 77; RESP 20; Ht 157.5 cm; Wt 75.0 kg
[2019-02-04] MEDS ORDERED: KETOROLAC 60 MG INJ IM STA (11:55)
--- NOTE | 2019-02-04 13:06 | ERD ---
ER Documentation Chief Complaint Chief Complaint right rib pain with deep inspiration started 1 hour ago - hx ofDM HPI 49-year-old female presenting with left-sided rib pain x1 hour. Patient is undergoing hyperbaric treatments for osteomyelitis of her foot and after her treatment she developed rib pain. She denies any coughing. She has pain with deep inspirations. She was sent here by her primary to rule out pneumothorax. She has not taken any medications for her symptoms. Medical history is diabetes type 2. NKDA. Surgical history left foot surgery. Social history denies ROS All systems reviewed and are negative except as per history of present illness. Medications Home Meds Active Scripts Naproxen* (Naprosyn*) 500 Mg Tablet, 500 MG PO BID PRN for PAIN AND/OR INFLAMMATION, #30 TAB Prov:SAEED CRUMP PA-C 02/04/19 Sitagliptin* (Januvia*) 100 Mg Tablet, 100 MG PO DAILY, #30 TAB 1 Refill Prov:ROLANDA CEDILLO 09/26/18 Metformin* (Glucophage*) 500 Mg Tab, 1000 MG PO BID WITH MEALS for 30 Days, #60 TAB 1 Refill Prov:ROLANDA CEDILLO 09/26/18 Guaifenesin-Codeine Phosphate* (Robitussin* AC) 5 Ml Syrup, 5 ML PO Q4H PRN for cough for 5 Days, #100 Prov:ROLANDA CEDILLO 09/26/18 Metoprolol Tartrate* (Lopressor*) 100 Mg Tablet, 100 MG PO BID for 30 Days, #60 TAB 1 Refill Prov:ROLANDA CEDILLO 09/26/18 Amlodipine Besylate* (Amlodipine Besylate*) 10 Mg Tablet, 10 MG PO DAILY for 30 Days, #30 TAB 1 Refill Prov:ROLANDA CEDILLO 09/26/18 [place]-3 Fatty Acids/Fish Oil (Fish Oil 1,000 mg Capsule) 1 Each Capsule, 1 EACH PO DAILY for 30 Days, #30 CAP Prov:ROLANDA CEDILLO 09/26/18 Atorvastatin Calcium* (Atorvastatin Calcium*) 20 Mg Tablet, 20 MG PO QHS for 30 Days, #30 TAB 1 Refill Prov:ROLANDA CEDILLO 09/26/18 Glipizide* (Glipizide*) 5 Mg Tablet, 5 MG PO AC BREAKFAST for 30 Days, #30 TAB 1 Refill Prov:ROLANDA CEDILLO 09/26/18 Ferrous Sulfate* (Ferrous Sulfate*) 325 Mg Tabec, 325 MG PO DAILY for 30 Days, #30 TAB Prov:ROLANDA CEDILLO 09/26/18 Reported Medications Cholecalciferol (Vitamin D3) 5,000 Unit Tablet, 5000 UNIT PO DAILY, TAB 09/10/18 Ascorbic Acid* (Vitamin C*) 500 Mg Capsule.sa, 500 MG PO DAILY, CAP 09/10/18 Allergies Allergies: Coded Allergies: No Known Allergy (Unverified , 09/10/18) PMhx/Soc History of Surgery: Yes (mult left foot surgeries) Anesthesia Reaction: No Hx Neurological Disorder: Yes (neuropathy) Hx Respiratory Disorders: No Hx Cardiac Disorders: Yes (HTN) Hx Psychiatric Problems: No Hx Miscellaneous Medical Probl: Yes (ANEMIA, SEVERE SEPSIS) Hx Alcohol Use: No Hx Substance Use: No Hx Tobacco Use: No Smoking Status: Never smoker FmHx Family History: No diabetes, No coronary disease, No other Physical Exam Vitals Vital Signs Date Temp Pulse Resp B/P (MAP) Pulse Ox O2 O2 Flow FiO2 Time Delivery Rate 02/04/19 98.0 77 20 106/55 100 11:36 (72) Physical Exam GENERAL: The patient is well-appearing, well-nourished, in no acute distress HEENT: Atraumatic. Conjunctivae are pink. Pupils equal, round, and reactive to light. There is no scleral icterus. Tympanic membranes clear bilaterally. Oropharynx clear. NECK: C-spine is soft and supple. There is no meningismus. There is no cervical lymphadenopathy. CHEST: Clear to auscultation bilaterally. There are no rales, wheezes or rhonchi. HEART: Regular rate and rhythm. No murmurs, clicks, rubs or gallops. SKIN: There is no apparent rash or petechiae. The skin is warm and dry. Results 24 hrs Current Medications Medications Dose Sig/Panfilo Start Time Status Last (Trade) Ordered Route PRN Stop Time Admin Dose Reason Admin Ketorolac 60 mg ONCE STAT 02/04/19 DC 02/04/19 Tromethamine IM 11:55 12:08 (Toradol) 02/04/19 11:57 Procedures/MDM DIAGNOSTIC IMAGING REPORT Patient: ELIZABETH IRVIN : 1970 Age: 49 Sex: F MR #: [id number] [facility] #: [id number] DOS: 02/04/19 1155 Ordering MD: SHANELL CRUMP PA-C Location: FT Room/Bed: PROCEDURE: XR Chest. CLINICAL INDICATION: left rib pain TECHNIQUE: Portable AP view of the chest was obtained. COMPARISON: DR SUN 09/26/2018. FINDINGS: The cardiomediastinal silhouette is within normal limits. The lungs are clear. No signs of pleural fluid or pneumothorax are seen. The osseous structures and soft tissues are unremarkable. IMPRESSION: No evidence for active cardiopulmonary disease. EKG: Rate/Rhythm: 78 Normal Sinus Rhythm QRS, ST, T-waves: No changes consistent w/ acute ischemia Impression: No evidence of ischemia or arrhythmia MDM: 49-year-old female presenting with left-sided rib pain with inspirations. Patient's x-ray is within normal limits exams is within normal limits and vitals are stable. I have considered pneumothorax versus PE versus cardiac emergency however patient's exam is non-concerning at this time. Patient is discharged with strict ER precautions and told to follow-up with primary care within 1 to 2 days for close evaluation. Patient is told symptoms change or worsen to return immediately to the ER. All questions answered at discharge Departure Diagnosis: Primary Impression: Rib pain Condition: Stable Patient Instructions: Pleurisy Referrals: [facility] YOU HAVE RECEIVED A MEDICAL SCREENING EXAM AND THE RESULTS INDICATE THAT YOU DO NOT HAVE A CONDITION THAT REQUIRES URGENT TREATMENT IN THE EMERGENCY DEPARTMENT. FURTHER EVALUATION AND TREATMENT OF YOUR CONDITION CAN WAIT UNTIL YOU ARE SEEN IN YOUR DOCTORS OFFICE WITHIN THE NEXT 1-2 DAYS. IT IS YOUR RESPONSIBILITY TO MAKE AN APPOINTMENT FOR FOLOW-UP CARE. IF YOU HAVE A PRIMARY DOCTOR --you should call your primary doctor and schedule an appointment IF YOU DO NOT HAVE A PRIMARY DOCTOR YOU CAN CALL OUR PHYSICIAN REFERRAL HOTLINE AT IF YOU CAN NOT AFFORD TO SEE A PHYSICIAN YOU CAN CHOSE FROM THE FOLLOWING [facility] [address] [facility] [address] [facility] [facility] [address] [facility] [address] [facility]. [facility] [address] [facility]. [facility] [address] Additional Instructions: FOLLOW UP WITH YOUR PRIMARY CARE PHYSICIAN TOMORROW.Return to this facility if you are not improving as expected. SAEED CRUMP PA-C Feb 04, 2019 13:06
== END 2019-02-04 13:00 | disposition home or self-care (01) ==
LOC: FTE 11:24
DX: R07.81 Pleurodynia (principal); E11.9 Type 2 diabetes mellitus without complications; I10 Essential (primary) hypertension; Z79.84 Long term (current) use of oral hypoglycemic drugs
CPT/HCPCS: 71045; 93005; 96372; J1885; Z7502

== ENCOUNTER 2019-02-13 16:37 | Day surgery (SDC) | payer OTHER ==
[~2019-02-13] VITALS: Ht 157.5 cm; Wt 61.0 kg
[2019-02-13] VITALS (15 sets, daily range): BP systolic 137–159; BP diastolic 59–86; PULSE 65–112; RESP 13–22; Ht 157.5 cm; Wt 61.0 kg
[2019-02-13] MEDS ORDERED: LIDOCAINE 1% (MPF) 30 ML INJ ONE (18:05)
[2019-02-13] MEDS ORDERED: LIDOCAINE 1%/EPI 30 ML INJ ONE (18:05)
[2019-02-13] MEDS ORDERED: POLYMYXIN/BACITRACIN 1L IRRIG ONE (18:06)
--- NOTE | 2019-02-13 18:07 | PREAC ---
Date/Time of Note Date/Time of Note DATE: 02/13/19 TIME: 18:07 Anesthesia Eval and Record Evaluation Time Pre-Procedure Interview DATE: 02/13/19 TIME: 18:07 Age 49 Sex female NPO: 8 hrs Preoperative diagnosis leftdiabetic foot ulcer Planned procedure left foot debridment and allograft application Past Medical History Past Medical History: Includes Cardio: HTN, Dyslipidemia Endo: Diabetes, Hypothyroid Surgery & Anesthesia Issues No known issue Meds Anticoagulation: No Beta Brittney within 24 hr: No Reason Beta Brittney not given: Pt. not on B-Brittney Active Scripts Naproxen* (Naprosyn*) 500 Mg Tablet, 500 MG PO BID PRN for PAIN AND/OR INFLAMMATION, #30 TAB Prov:SAEED CRUMP PA-C 02/04/19 Sitagliptin* (Januvia*) 100 Mg Tablet, 100 MG PO DAILY, #30 TAB 1 Refill Prov:ROLANDA CEDILLO 09/26/18 Metformin* (Glucophage*) 500 Mg Tab, 1000 MG PO BID WITH MEALS for 30 Days, #60 TAB 1 Refill Prov:ROLANDA CEDILLO 09/26/18 Guaifenesin-Codeine Phosphate* (Robitussin* AC) 5 Ml Syrup, 5 ML PO Q4H PRN for cough for 5 Days, #100 Prov:ROLANDA CEDILLO 09/26/18 Metoprolol Tartrate* (Lopressor*) 100 Mg Tablet, 100 MG PO BID for 30 Days, #60 TAB 1 Refill Prov:ROLANDA CEDILLO 09/26/18 Amlodipine Besylate* (Amlodipine Besylate*) 10 Mg Tablet, 10 MG PO DAILY for 30 Days, #30 TAB 1 Refill Prov:ROLANDA CEDILLO 09/26/18 [place]-3 Fatty Acids/Fish Oil (Fish Oil 1,000 mg Capsule) 1 Each Capsule, 1 EACH PO DAILY for 30 Days, #30 CAP Prov:ROLANDA CEDILLO 09/26/18 Atorvastatin Calcium* (Atorvastatin Calcium*) 20 Mg Tablet, 20 MG PO QHS for 30 Days, #30 TAB 1 Refill Prov:ROLANDA CEDILLO 09/26/18 Glipizide* (Glipizide*) 5 Mg Tablet, 5 MG PO AC BREAKFAST for 30 Days, #30 TAB 1 Refill Prov:ROLANDA CEDILLO 09/26/18 Ferrous Sulfate* (Ferrous Sulfate*) 325 Mg Tabec, 325 MG PO DAILY for 30 Days, #30 TAB Prov:ROLANDA CEDILLO 09/26/18 Reported Medications Cholecalciferol (Vitamin D3) 5,000 Unit Tablet, 5000 UNIT PO DAILY, TAB 09/10/18 Ascorbic Acid* (Vitamin C*) 500 Mg Capsule.sa, 500 MG PO DAILY, CAP 09/10/18 Meds reviewed: Yes Allergies Coded Allergies: No Known Allergy (Unverified , 09/10/18) Allergies Reviewed: Yes Labs/Studies Labs Reviewed: Reviewed by anesthesiologist Result Diagram: 02/13/19 1718 Laboratory Tests 02/13/19 17:18 test: N/A Studies: ECG (sr), CXR (nl) Pre-procedure Exam Last vitals Vital Signs Date Temp Pulse Resp B/P (MAP) Pulse Ox O2 O2 Flow FiO2 Time Delivery Rate 02/13/19 98.0 65 17 138/62 100 Room Air 17:48 (87) Airway: Adequate mouth opening Mallampati: Mallampati I Teeth: Abnormal (missing) Lung: Normal Heart: Normal ASA Physical Status ASA physical status: 2 Emergency: None Planned Anesthetic General/MAC: LMA, MAC Nerve block: Femoral (left), Sciatic (left) Planned Pain Management Single shot nerve block, Parenteral pain med Pre-operative Attestations Prior to commencing anesthesia and surgery, the patient was re-evaluated, there was verification of: *The patient's identity *The results of appropriate recent lab work and preoperative vital signs *The above evaluation not changing prior to induction *Anesthetic plan, risk benefits, alternative and complications discussed with patient/family; questions answered; patient/family understands, accepts and wishes to proceed. KAILYN WINTER MD Feb 13, 2019 18:07
[2019-02-13] MEDS ORDERED: BUPIVACAINE 0.5% (SDV) 30 ML INJ ONE (18:36)
--- NOTE | 2019-02-13 18:36 | HPN ---
Date/Time of Note Date/Time of Note DATE: 02/13/19 TIME: 18:35 Interval H&P Admission Note Pt. seen H&P reviewed: No system changes WALTER TIM DPM Feb 13, 2019 18:36
[2019-02-13] MEDS ORDERED: MIDAZOLAM 1 MG/ML 2 ML INJ ONE (18:53)
[2019-02-13] MEDS ORDERED: ROPIVACAINE 0.2% 20 ML VIAL ONE (18:54)
[2019-02-13] MEDS ORDERED: LIDOCAINE 2% (SDV) 5 ML INJ ONE (18:54)
[2019-02-13] MEDS ORDERED: PROPOFOL 20 ML ONE (19:03)
[2019-02-13] MEDS ORDERED: FENTAnyl 50 MCG/ML VIAL ONE (19:04)
[2019-02-13] MEDS ORDERED: CEFAZOLIN 1 GM INJ ONE (19:08)
[2019-02-13] MEDS ORDERED: METOCLOPRAMIDE 10 MG INJ ONE (19:19)
[2019-02-13] MEDS ORDERED: ONDANSETRON 4 MG INJ ONE (19:19)
[2019-02-13] MEDS ORDERED: EPHEDrine 25 MG/5 ML SYG ONE (19:29)
[2019-02-13] MEDS ORDERED: BACITRACIN/POLYMYXIN 28.35 GM OINT TOP ONE (20:00)
--- NOTE | 2019-02-13 20:09 | SIPON ---
Date/Time of Note Date/Time of Note DATE: 02/13/19 TIME: 20:05 Operative Report Preoperative Diagnosis Left foot diabetic ulceration h/o OM left foot DM2 with PN Postoperative Diagnosis same Operation/Procedure Performed Left foot excision skin, subcut, muscle, bone dorsal hallux 3x1 cm, 5x2 cm hallux, medial column 6x3 , dorsal lateral 1x1 = 29 cm2 Application of allograft stravix Surgeon see signature line sales assistant entertainment and media Roseanna Ayala DPM Anesthesia: general Estimated blood loss: 10 - 50 ml's Transfusion Required none Specimen none Grafts/Implants none Complications none JAYY BRUNO DPM Feb 13, 2019 20:09
--- NOTE | 2019-02-14 00:25 | OPR ---
DATE OF OPERATION: 02/13/2019 SURGEON: Jayy Stevens DPM FIELD REIMBURSEMENT MANAGER: Roseanna Stewart DPM PREOPERATIVE DIAGNOSES: 1. Left foot diabetic foot ulceration. 2. History of osteomyelitis. 3. Diabetes type 2, peripheral neuropathy. 4. History of left 2nd toe amputation. POSTOPERATIVE DIAGNOSES: 1. Left foot diabetic foot ulceration. 2. History of osteomyelitis. 3. Diabetes type 2, peripheral neuropathy. 4. History of left 2nd toe amputation. PROCEDURE PERFORMED: Left foot excisional debridement of necrotic skin, subcutaneous tissue, muscle, bone, total of 29 cm2. ANESTHESIA: General. ESTIMATED BLOOD LOSS: 15 mL. COMPLICATIONS: None. MATERIALS: 3-0 nylon. PROCEDURE IN DETAIL: The patient was brought into the operating room and placed in the supine positi on. Formal timeout was performed. The foot was properly marked, confirmed by the surgical team, pre pped and draped in usual sterile fashion. Attention was directed to the medial column ulceration and using a combination of instrumentations, pickups, scissors, rongeur, curette, excisional debridement of skin, subcutaneous tissue, ligament and bone was performed. Ulceration measured approximately 5 x 3 cm. Attention was directed to the plantar hallux ulceration. In a similar fashion, excisional d ebridement of skin, subcutaneous tissue, bone, 6 x 3 cm, the dorsal foot ulceration measuring 1 x 1 c m size in skin and subcutaneous bone. The patient also had a dorsal foot ulceration which was debrid ed excisionally skin, subcutaneous, muscle and bone. Wounds were copiously irrigated. Stravix graft was then rehydrated and meshed 1.51:1 and then secured to the wounds with 3-0 nylon and secured with Xeroform, 4 x 4 gauze, Kerlix and bias. The patient tolerated the procedure well and was transferre d to the PACU with vital signs stable. POSTOPERATIVE PLAN: We will follow up as an outpatient. We will leave the dressing clean, dry and i ntact. I recommend tight glycemic control. Dictated By: JAYY MERCER/CESAR Conf#: [id number] DID#: [id number]
--- NOTE | 2019-02-14 10:22 | PAC ---
Date/Time of Note Date/Time of Note DATE: 02/14/19 TIME: 10:21 Post-Anesthesia Notes Post-Anesthesia Note Last documented vital signs Vital Signs Date Temp Pulse Resp B/P (MAP) Pulse Ox O2 O2 Flow FiO2 Time Delivery Rate 02/13/19 98.2 84 137/63 Room Air 21:08 (87) 02/13/19 20 100 21:03 02/13/19 8.0 20:09 Activity: WNL Respiratory function: WNL Cardiovascular function: WNL Mental status: Baseline Pain reasonably controlled: Yes Hydration appropriate: Yes Nausea/Vomiting absent: No KAILYN WINTER MD Feb 14, 2019 10:21
== END 2019-02-13 21:15 | disposition home or self-care (01) ==
LOC: SDS 16:37
PROVIDERS: ATTEND Podiatrist Foot & Ankle Surgery
DX: E11.621 Type 2 diabetes mellitus with foot ulcer (principal); E11.42 Type 2 diabetes mellitus with diabetic polyneuropathy; Z89.422 Acquired absence of other left toe(s); I10 Essential (primary) hypertension; E03.9 Hypothyroidism, unspecified; Z79.84 Long term (current) use of oral hypoglycemic drugs
CPT/HCPCS: 11044; 11047; 82962; 85025; J0690; J2250; J2405; J2765; J2795; J3010; Z7512; Z7610